=== PATIENT | female | born 1985 | race Caucasian/White ===

== ENCOUNTER → 2021-04-14 16:34 | Outpatient (CLI) | payer BC, SELFPAY ==
[2021-04-14 18:55] LABS: Amphetamine Urine VISTA NEGATIVE (<1000 ng/mL); Barbiturate Urine VISTA NEGATIVE (< 200 ng/mL); Benzodiazepine Urine VISTA NEGATIVE (< 200 ng/mL); Cocaine Urine VISTA NEGATIVE (< 300 ng/mL); Ecstacy Urine VISTA NEGATIVE (< 500 ng/mL); Methadone Urine VISTA NEGATIVE (< 300 ng/mL); PCP Urine VISTA NEGATIVE (< 25 ng/mL); THC Urine VISTA NEGATIVE (< 50 ng/mL); Vista UDS pH Range 6
[2021-04-16 22:07] LABS: Chlamydia By Nucleic Acid AMP Negative (Negative)
[2021-04-17 09:33] LABS: Gonococcus By Nucleic Acid AMP Negative (Negative)
[2021-04-21 16:26] LABS: HPV APTIMA, High Risk Negative (Negative)
== END ==
PROVIDERS: Referring Provider Obstetrics & Gynecology; Visit Provider Obstetrics & Gynecology
DX: Z34.90 Encounter for supervision of normal pregnancy, unspecified, unspecified trimester (principal)
CPT/HCPCS: 80307; 87086; 87088; 87186; 87491; 87591; 87624; 88175; G0145

== ENCOUNTER → 2021-04-30 11:01 | Outpatient (CLI) | payer BC, SELFPAY ==
[2021-04-30 11:27] LABS: Absolute Lymphocyte Count 1.52 X10^3/uL (0.83-4.51); Absolute Neutrophil Count 7.7 X10^3/uL (2.0-7.7); Basophil# 0.05 X10^3/uL; Basophil% 0.5 % (0-1); Eosinophils% 3.9 % (0-5); Hemoglobin 12.7 g/dL (12.0-15.0); Lymphocyte # 1.52 X10^3/ul (0.83-4.51); Lymphocyte % 14.9 % (19-41); Mean Corp Hgb Conc 33.4 g/dL (32-36); Mean Corpuscular Volume 89.8 fL (81-99); Mean Platelet Vol. 9.1 fl (6.2-12.0); Monocyte# 0.48 X10^3/uL; Monocyte% 4.7 % (0-10); NRBC Flagged by Analyzer 0 % (0-5); Neutrophil # 7.71 X10^3/uL (2.7-7.7); Neutrophil % 75.7 % (47-70); Platelet Count 271 K/mm3 (150-450); RBC Distribution Width CV 14.2 % (11.6-14.6); RBC Distribution Width SD 46.5 fl (35.1-43.9); Red Blood Count 4.23 M/mm3 (4.2-5.4); White Blood Count 10.2 K/mm3 (4.4-11.0)
[2021-04-30 12:24] LABS: NATERA MAILED SPECIMEN
[2021-04-30 12:45] LABS: HIV - WCH Non-Reactive (Nonreactive); Hepatitis B Surface Antigen Non-Reactive (Nonreactive); Hepatitis C Antibody Non-Reactive (Nonreactive); Rubella IgG Reactive (Nonreactive); Syphilis Antibodies Non-reactive
== END ==
PROVIDERS: Referring Provider Obstetrics & Gynecology; Visit Provider Obstetrics & Gynecology
DX: Z34.90 Encounter for supervision of normal pregnancy, unspecified, unspecified trimester (principal)
CPT/HCPCS: 36415; 85025; 86703; 86762; 86780; 86803; 86850; 86900; 86901; 87340

== ENCOUNTER → 2021-05-13 12:30 | Outpatient (CLI) | payer BC, SELFPAY | PROVIDERS: Visit Provider Obstetrics & Gynecology | DX: Z34.91 Encounter for supervision of normal pregnancy, unspecified, first trimester (principal) | CPT/HCPCS: 87086; 87088 ==

== ENCOUNTER → 2021-07-08 | Outpatient (CLI) | payer BC, SELFPAY | END | disposition home or self-care (01) | LOC: LABSPEC 08-13 11:29 | PROVIDERS: Visit Provider Obstetrics & Gynecology | DX: O99.891 Other specified diseases and conditions complicating pregnancy (principal); R82.71 Bacteriuria | CPT/HCPCS: 87086; 87088 ==

== ENCOUNTER 2021-08-25 08:22 | Outpatient (CLI) | payer BC, SELFPAY ==
[2021-08-25 08:51] LABS: Absolute Lymphocyte Count 1.61 X10^3/uL (0.83-4.51); Absolute Neutrophil Count 9.4 X10^3/uL (2.0-7.7); Basophil# 0.04 X10^3/uL; Basophil% 0.3 % (0-1); Eosinophil# 0.43 X10^3/uL; Eosinophils% 3.5 % (0-5); Hematocrit 36.8 % (37-47); Hemoglobin 12.5 g/dL (12.0-15.0); Lymphocyte # 1.61 X10^3/ul (0.83-4.51); Lymphocyte % 13.2 % (19-41); Mean Corpuscular Hgb 32.9 pg (27.0-32.0); Mean Corpuscular Volume 96.8 fL (81-99); Monocyte# 0.68 X10^3/uL; Monocyte% 5.6 % (0-10); NRBC Flagged by Analyzer 0 % (0-5); Neutrophil # 9.43 X10^3/uL (2.7-7.7); Platelet Count 230 K/mm3 (150-450); RBC Distribution Width CV 12.7 % (11.6-14.6); RBC Distribution Width SD 45.1 fl (35.1-43.9); White Blood Count 12.2 K/mm3 (4.4-11.0)
[2021-08-25 09:13] LABS: Glucose Challenge Gest 1H 50g 102 mg/dL (70-140)
== END 2021-08-25 23:59 | disposition home or self-care (01) ==
LOC: PAVLAB 08:23
PROVIDERS: Referring Provider Obstetrics & Gynecology; Visit Provider Obstetrics & Gynecology
DX: Z34.02 Encounter for supervision of normal first pregnancy, second trimester (principal)
CPT/HCPCS: 36415; 82950; 85025

== ENCOUNTER → 2021-09-28 | Outpatient (CLI) | payer BC, SELFPAY ==
--- NOTE | 2021-09-28 09:04 | US_ITS ---
STUDY: SECOND AND THIRD TRIMESTER OBSTETRICAL ULTRASOUND - LIMITED REASON FOR EXAM: Female, 36 years old growth @ 32 and 36 weeks -- standing order LMP: 02/14/2021. PRIOR ULTRASOUND: None. TECHNIQUE: Transabdominal TECHNICAL QUALITY: Adequate. FINDINGS: There is a single intrauterine fetus. The fetus is in a cephalic presentation. There is demonstrated cardiac activity with a heart rate of 155 bpm. There is a normal amniotic fluid volume. The largest amniotic fluid pocket measures 4.95 cm. The amniotic fluid index (MARJORIE) is 14.41 cm. The placenta is anterior in location and is not low lying. There are Grade 0 placental changes. The cervix measures 3.4 cm in length. BIOMETRY: BPD: 7.89 cm: 31 weeks, 4 days HC: 29.76 cm: 32 weeks, 6 days AC: 27.69 cm: 31 weeks, 5 days FL: 5.97 cm: 31 weeks, 0 days Age by LMP: 32 weeks, 2 days. BRITANY by LMP: 11/22/2019. age by current US: 31 weeks, 6 days. BRITANY by current US: 11/24/2021. Estimated weight: 1804 grams, +/- 271 grams, 22 percentile. US/OB Limited With Biometrics IMPRESSION: Single live uterine gestation with mean gestational age of 31 weeks and 6 days. Electronically Signed: Mane Soriano MD at 13:59 EDT ,
== END | disposition home or self-care (01) ==
LOC: OPUS 09:03
PROVIDERS: Referring Provider Nurse Practitioner Women's Health; Visit Provider Nurse Practitioner Women's Health
DX: O98.512 Other viral diseases complicating pregnancy, second trimester (principal); U07.1 COVID-19; Z3A.00 Weeks of gestation of pregnancy not specified
CPT/HCPCS: 76816

== ENCOUNTER → 2021-10-27 | Outpatient (CLI) | payer BC, SELFPAY ==
--- NOTE | 2021-10-27 08:15 | US_ITS ---
HISTORY: growth. TECHNIQUE: Transabdominal pelvic ultrasound was performed. 70 images. COMPARISON: 09/28/2021. FINDINGS: INTRAUTERINE GESTATION(s): Single. PRESENTATION: Cephalic. HEART MOTION: 137 bpm. PLACENTA: Anterior, grade 2. No placenta previa. CERVIX: 3.3 cm in length and closed. AMNIOTIC FLUID INDEX (MARJORIE): 13.1 cm. biometry- HEAD CIRCUMFERENCE: 32.9 cm, corresponding to 37 weeks 2 days. BIPARIETAL DIAMETER: 8.6 cm, corresponding to 34 weeks 3 days. ABDOMINAL CIRCUMFERENCE: 32 cm, corresponding to 35 weeks 6 days. FEMORAL LENGTH: 6.9 cm, corresponding to 35 weeks 1 day. ESTIMATED GESTATIONAL AGE: 35 weeks 4 days. ESTIMATED DUE DATE (BRITANY): 11/27/2021. ESTIMATED WEIGHT: 2725 g corresponding to 32nd percentile. US/OB Limited With Biometrics IMPRESSION: Single living intrauterine with an estimated gestational age of 35 weeks 4 days. Electronically Signed: Kaela Chaparro MD at 13:58 EDT ,
== END | disposition home or self-care (01) ==
LOC: OPUS 07:49
PROVIDERS: Visit Provider Nurse Practitioner Women's Health
DX: O98.512 Other viral diseases complicating pregnancy, second trimester (principal); U07.1 COVID-19; Z3A.00 Weeks of gestation of pregnancy not specified
CPT/HCPCS: 76816

== ENCOUNTER → 2021-10-28 | Outpatient (CLI) | payer BC, SELFPAY | END | disposition home or self-care (01) | PROVIDERS: Visit Provider Obstetrics & Gynecology | DX: Z34.02 Encounter for supervision of normal first pregnancy, second trimester (principal) | CPT/HCPCS: 87081 ==

== ENCOUNTER 2021-11-26 22:00 | Inpatient (IN) | payer BC, SELFPAY ==
--- NOTE | 2021-11-26 16:01 | HP.PCM.OB_ITS ---
HPI - General HPI Narrative BARRIE WEBSTER, is a 36 @ 41 weeks gestation who presents to L&D for post dates IOL. Maternal Data Information BRITANY Calculator Estimated Delivery Date Method Current WG Current Estimate 11/21/21 LMP (Certain) 40w 5d Other Estimates 11/21/21 Ultrasound #1 40w 5d PFSH PFSH Medical History Low-lying placenta in second trimester Home Medications multivitamin no.47-iron fum 27 mg-folate no.1 1 mg-dha 300 mg capsule (PNV-DHA) cap PO 03/30/21 [History Last Taken Unknown] ondansetron 4 mg disintegrating tablet 4 mg PO Q8H PRN nausea and vomiting 14 days #30 tabs 04/14/21 [Rx Last Taken Unknown] Allergy/AdvReac Type Severity Reaction Status Date / Time No Known Allergies Allergy Verified 11/25/21 08:21 Family History Other Cancer Diabetes Heart disease Hypertension Social History household members: spouse housing: house current occupational status: unemployed pets and animals: Yes Smoking Status: Never smoker second hand exposure: No alcohol intake: never substance use type: does not use seatbelt use: always do you feel safe at home: Yes additional social history: - Richi History 1 Elective abortions 0 Hx Para 0 Spontaneous abortions Hx # Term Pregnancies Ectopic pregnancies Hx # Pregnancies Multiple births # of living children 0 Visit Details Expected Delivery Route/Plan Labor Preferences- CB/BF classes: encouraged labor support person: Richi labor intervention preferences: pain management options preferred: limited intervention if possible cut cord/dad catch: yes!! : yes PP control planned: discussed discussed possible routes of delivery and associated risks: [] special requests: [] Plans Covid status: + second trim Flu vaccine: no Tdap vaccine: [] Rhogam: NA LARC form signed: yes Problem list reviewed and updated with the most current plan of care details and appropriate orders placed. Relevant counseling for the gestational age provided. Continue routine care and follow up unless otherwise noted in visit notes/problem list details OB Flowsheet Initial Weight: Not Recorded Date -?-?-?-?-?-?-?-?-?-?-?-?- EGA Weight BP Urine Prot -?-?-?-?-?-?-?-?-?-?-?-?- Glucose FHR FuHt Pres Dilation -?-?-?-?-?-?-?-?-?-?-?-?- Effaced St Visit Note 05/13/21 -?-?-?-?-?-?-?-?-?-?-?-?- 12w 4d 133 lb 112/80 -?-?-?-?-?-?-?-?-?-?-?-?- -?-?-?-?-?-?-?-?-?-?-?-?- JV- bedside us t yuli was normal. nausea improved. gender a surprise until yumi! normal genetics. 06/10/21 -?-?-?-?-?-?-?-?-?-?-?-?- 16w 4d 136 lb 120/74 Negative -?-?-?-?-?-?-?-?-?-?-?-?- Negative 156 -?-?-?-?-?-?-?-?-?-?-?-?- -No Vb, LOF. N ausea resolved. Anatomy US ordered. 07/08/21 -?-?-?-?-?-?-?-?-?-?-?-?- 20w 4d 140 lb 8 oz 110/70 Nega tive -?-?-?-?-?-?-?-?-?-?-?-?- Negative 145 -?-?-?-?-?-?-?-?-?-?-?-?- JV- pt was told of low lying vs marginal previa. pelvic rest encouraged. pt will have rpt scan in 2 weeks for follow up ultrasound. 08/05/21 -?-?-?-?-?-?-?-?-?-?-?-?- 24w 4d 152 lb 112/72 Negative -?-?-?-?-?-?-?-?-?-?-?-?- Negative 135 -?-?-?-?-?-?-?-?-?-?-?-?- JV- no lof, vagi nal bleeding, or dec fm. glucola given. Rpt scan for low lying placenta on 08/31/21 09/02/21 -?-?-?-?-?-?-?-?-?-?-?-?- 28w 4d 157 lb 2 oz 108/60 Nega tive -?-?-?-?-?-?-?-?-?-?-?-?- Negative 153 27 -?-?-?-?-?-?-?-?-?-?-?-?- MH-NO VB, LOF. G ood FM. Nl 28 wk labs, [facility] 09/16/21 -?-?-?-?-?-?-?-?-?-?-?-?- 30w 4d 162 lb 2 oz 100/72 Nega tive -?-?-?-?-?-?-?-?-?-?-?-?- Negative 130 30 -?-?-?-?-?-?-?-?-?-?-?-?- JV-no lof, vagin al bleeding. or dec fm. 09/30/21 -?-?-?-?-?-?-?-?-?-?-?-?- 32w 4d 163 lb 4 oz 110/80 Nega tive -?-?-?-?-?-?-?-?-?-?-?-?- Negative 145 32 -?-?-?-?-?-?-?-?-?-?-?-?- JV- no lof, vagi nal bleeding, or dec fm. 10/14/21 -?-?-?-?-?-?-?-?-?-?-?-?- 34w 4d 165 lb 6 oz 102/80 Nega tive -?-?-?-?-?-?-?-?-?-?-?-?- Negative 147 34 -?-?-?-?-?-?-?-?-?-?-?-?- JV- no complaint s today. growth scan was normal. (22nd%) mediteck down during visit 10/28/21 -?-?-?-?-?-?-?-?-?-?-?-?- 36w 4d 166 lb 104/82 Negative -?-?-?-?-?-?-?-?-?-?-?-?- Negative 145 0 -?-?-?-?-?-?-?-?-?-?-?-?- JV- GBS today. n o lof, vaginal bleeding or dec fm. pt uable to meet Dr. zuñiga at this time because she can only come on wednesdays. she is ok with it as is Dr. zuñiga. 11/04/21 -?-?-?-?-?-?-?-?-?-?-?-?- 37w 4d 172 lb 2 oz 120/82 Nega tive -?-?-?-?-?-?-?-?-?-?-?-?- Negative 155 36 1 -?-?-?-?-?-?-?-?-?-?-?-?- 0 -3 JV- no lof , vaginal bleeding, or dec fm. gbs neg 11/11/21 -?-?-?-?-?-?-?-?-?-?-?-?- 38w 4d 168 lb 4 oz 110/88 Nega tive -?-?-?-?-?-?-?-?-?-?-?-?- Negative 150 37 1 -?-?-?-?-?-?-?-?-?-?-?-?- 0 -3 JV- labor precautions discussed. no complaints. will check MARJORIE next visit if still measuring behind. 11/18/21 -?-?-?-?-?-?-?-?-?-?-?-?- 39w 4d 170 lb 6 oz 124/78 Nega tive -?-?-?-?-?-?-?-?-?-?-?-?- Negative 127 2 -?-?-?-?-?-?-?-?-?-?-?-?- 40 -2 JV- labor precautions discussed. plan for 41 week IOL 11/25/21 -?-?-?-?-?-?-?-?-?-?-?-?- 40w 4d 173 lb 4 oz 102/80 Nega tive -?-?-?-?-?-?-?-?-?-?-?-?- Negative 145 2 -?-?-?-?-?-?-?-?-?-?-?-?- 80 -2 JV- no lof , vaginal bleeding, or dec fm. IOL set up for tomorrow night. ROS Constitutional Constitutional: Denies change in weight, fatigue, fever(s), headache(s), poor appetite or weakness Eyes Eyes: Denies blurry vision, change in vision, seeing flashes or spots in vision ENT HEENT: Denies dizziness, headache(s), loss taste/smell or sore throat Cardiovascular Cardiovascular: Denies chest pain, dizziness, dyspnea, irregular heart rhythm, leg edema, palpitations, rapid heart rate or vomiting Respiratory/Chest Respiratory/Chest: Denies chest tightness, cough, dyspnea or breast pain Gastrointestinal Gastrointestinal: Denies abdominal pain, anorexia, constipation, cramping, diarrhea, hemorrhoids, vomiting or weight changes Genitourinary Genitourinary: Denies dysuria, flank pain, genital lesions, genital pain, urinary frequency or urinary urgency Musculoskeletal Musculoskeletal: Denies back pain, difficulty walking, joint pain, limited range of motion, muscle cramps or numbness Integumentary Integumentary: Denies lesions or unusual bruising Neurologic Neurologic: Denies abnormal movements, abnormal speech, dizziness, numbness, seizure-like activity or syncope Psychiatric Psychiatric: Denies anxiety, behavioral changes, change in appetite, change in libido, cognitive impairment, confusion, depression, difficulty concentrating, hallucinations or suicidal thoughts Endocrine Endocrinology: Denies excessive sweating, polydipsia or polyuria Hematologic/Lymphatic Hematologic/Lymphatic: Denies easy bleeding, easy bruising or lymphadenopathy Allergic/Immunologic Allergic/Immunologic: Denies itchy eyes, lip swelling, seasonal rhinorrhea, rhinitis, throat swelling, tongue swelling, eczemia, wheezing or asthma Physical Exam Const alert, oriented x3, no apparent distress and healthy appearing General Appearance: cooperative; Negative for anxious HEENT normocephalic Face and Sinus: normal facial exam Eyes EOMs intact bilaterally and no scleral icterus General Eye: normal appearance of both eyes Neck full ROM and supple Lymph Lymphatic: no lymphadenopathy noted Chest Chest: abnormal inspection of the chest Resp normal respiratory effort Effort and Inspection: able to speak in complete sentences Cardio regular rate GI soft to palpation and non-tender Inspection: gravid Palpation: soft; Negative for tender external exam normal Amniotic Fluid: ROM+plus Back/Spine no CVA tenderness Extremity normal to inspection, full ROM and no clubbing, cyanosis or edema General Extremity: Negative for calf tenderness or edema Skin Lesions: no lesions Rashes: no rashes Psych mental status grossly normal Labs Labs Labs: Blood Type O POSITIVE Antibody Screen NEGATIVE Hct 36.8 % (37-47) L Hgb 12.5 g/dL (12.0-15.0) Obstetrics US Syphilis Total Ab Non-reactive Rubella IgG Antibody Reactive (Nonreactive) Hep Bs Antigen Non-Reactive (Nonreactive) Chlamydia DNA (BEATRIS) Negative (Negative) Neisseria gonorrhoeae DNA (BEATRIS) Negative (Negative) HIV 1&2 Antibody Non-Reactive (Nonreactive) Glucose 1 Hr 50 gm 102 mg/dL (70-140) Assessment & Plan (1) Low-lying placenta in second trimester: COMMENT: resolved (2) COVID-19 affecting in second trimester: COMMENT: Start aspirin and growth US, growth low nl 22% (3) Antepartum asymptomatic bacteriuria: COMMENT: Neg on 07/08/21 (4) Supervision of normal : QUALIFIERS: Normal : normal first Trimester: second trimester Qualified Code(s): Z34.02 - Encounter for supervision of normal first , second trimester COMMENT: [id number] BRITANY: 11/21/21 Girl Spouse: Richi (5) : QUALIFIERS: Weeks of gestation: 40 weeks Qualified Code(s): Z3A.40 - 40 weeks gestation of COMMENT: GBS Negative; anatomy nl repeat 2 wks for addtnl views, genetic- low risk and carrier- neg PLAN: Plan Patient presents IOL, plan management for with cytotec tonight and pitocin tomorrow. . Pain management: plans epidural. GBS negative. Management of any complications: none I have reviewed the [facility] and made any clinically relevant updates.
[2021-11-26 22:21] VITALS: TEMP 37
[2021-11-26] MEDS: Lactated Ringers 1,000 ML 50 ML IV (22:25)
[2021-11-26 22:30] VITALS: BMI 28.8
[2021-11-26 22:40] LABS: Absolute Lymphocyte Count 2.04 X10^3/uL (0.83-4.51); Absolute Neutrophil Count 10.9 X10^3/uL (2.0-7.7); Basophil# 0.04 X10^3/uL; Basophil% 0.3 % (0-1); Eosinophil# 0.46 X10^3/uL; Eosinophils% 3.2 % (0-5); Hematocrit 36.5 % (37-47); Lymphocyte # 2.04 X10^3/ul (0.83-4.51); Lymphocyte % 14.2 % (19-41); Mean Corp Hgb Conc 32.9 g/dL (32-36); Mean Corpuscular Hgb 31.1 pg (27.0-32.0); Mean Corpuscular Volume 94.6 fL (81-99); Mean Platelet Vol. 9.8 fl (6.2-12.0); Monocyte# 0.93 X10^3/uL; Monocyte% 6.5 % (0-10); NRBC Flagged by Analyzer 0 % (0-5); Neutrophil # 10.87 X10^3/uL (2.7-7.7); Neutrophil % 75.3 % (47-70); Platelet Count 266 K/mm3 (150-450); RBC Distribution Width CV 14.1 % (11.6-14.6); RBC Distribution Width SD 48.5 fl (35.1-43.9); Red Blood Count 3.86 M/mm3 (4.2-5.4); White Blood Count 14.4 K/mm3 (4.4-11.0)
[2021-11-26 22:58] VITALS: PULSE 81; TEMP 37.1; O2SAT 98
[2021-11-26 22:59] VITALS: PULSE 82; O2SAT 98
[2021-11-26 23:02] VITALS: BP 110/62; PULSE 75
[2021-11-26] MEDS: miSOPROStol 25 MCG TABLET PO (23:46)
[2021-11-27] VITALS (46 sets, daily range): BP systolic 82–125; BP diastolic 51–80; PULSE 64–116; RESP 14; TEMP 36.2–37.7; O2SAT 98–100
[2021-11-27] MEDS: miSOPROStol 25 MCG TABLET PO (03:49)
[2021-11-27] MEDS: Oxytocin 30 units/NS 500 ml 30 UNITS/500 ML IV.SOLN IV (07:52)
[2021-11-27] MEDS: 0.9% Normal Saline Single 100 ML IV.SOLN. INTRA-UTER (08:19)
--- NOTE | 2021-11-27 08:42 | PN_ITS ---
Progress Note pt is sitting up in bed. She states that contractions are no bad and she consents to a loera bulb placement current tracing: FHT: Moderate variability reactive no decelerations category I tracing [place]: irregular Contractions cx: 2/80/-3 - loera cath inserted into the cervix and inflated with 50cc NS reviewed tracing abnormalities since last note: no changes A/P: 40 weeks 6 day IOL -continue pitocin with loera. arom prn.
[2021-11-27] MEDS: LACTATED RINGERS 500 ML 999 ML IV (12:26)
[2021-11-27] MEDS: Lactated Ringers 1,000 ML 200 ML IV ×2 (13:18→19:25)
[2021-11-27] MEDS: fentaNYL-bupivacaine (epidural) 100 ML BAG EPIDURAL (13:21)
[2021-11-27] MEDS: Oxytocin 30 units/NS 500 ml 30 UNITS/500 ML IV.SOLN 334 UNITS IV (16:22)
--- NOTE | 2021-11-27 17:17 | EX.PCM.OBRPT ---
Assessment & Plan (1) : QUALIFIERS: Weeks of gestation: 40 weeks Qualified Code(s): Z3A.40 - 40 weeks gestation of COMMENT: GBS Negative; anatomy nl repeat 2 wks for addtnl views, genetic- low risk and carrier- neg (2) Supervision of normal : QUALIFIERS: Normal : normal first Trimester: second trimester Qualified Code(s): Z34.02 - Encounter for supervision of normal first , second trimester COMMENT: [id number] BRITANY: 11/21/21 Girl Spouse: Richi (3) Antepartum asymptomatic bacteriuria: COMMENT: Neg on 07/08/21 (4) COVID-19 affecting in second trimester: COMMENT: Start aspirin and growth US, growth low nl 22% (5) Vaginal delivery: COMMENT: SM IOL 41 girl Lisa Maternal Data Information BRITANY Calculator Estimated Delivery Date Method Current WG Current Estimate 11/21/21 LMP (Certain) 40w 6d Other Estimates 11/21/21 Ultrasound #1 40w 6d Vaginal Delivery Operative Information Date of Procedure: 11/27/21 Pre-Operative Diagnosis: IOL postdates Post-Operative Diagnosis: same Surgery / Procedure Performed: Spontaneous Vaginal Delivery Type of Anesthesia: Epidural Special Medications: none Estimated Blood Loss: 100 Fluids Replaced: crystalloid Findings Description of Procedure: Patient began pushing and delivered the head in the SULEIMAN presentation. The head was delivered atraumatically . The anterior and posterior shoulders delivered without complication followed by the rest of the and the infant was placed on the maternal abdomen. Delayed cord clamping was employed for approximately 60 seconds. Cord was clamped and cut and gentle traction was applied to the cord and the placenta delivered spontaneously immediately following it was noted to be intact with three-vessel cord. The perineum and vagina were inspected and noted to have no laceration. EBL was 100 cc. Patient and infant tolerated delivery well. Presentation: SULEIMAN Amniotic Membrane Rupture Type: Artificial Amniotic Fluid Description: Clear Placental Delivery Description: Spontaneous Placenta Disposition: [facility] Cord Vessel Description: 3 Vessels Cord Entanglement: None Infant A Gender: Female Delayed Cord Clamping: Yes Post Vaginal Delivery Medications Given After Delivery: IV Pitocin Episiotomy Description: None Laceration: None Complication Complications: None Procedures Urinary/Genital [id number]: [id number] Vaginal Delivery [facility]
--- NOTE | 2021-11-27 17:18 | DCINST_ITS ---
Discharge Instructions Follow Up Care Test Results: Test results from this visit will be discussed in further detail at your follow- up appointment, if applicable. Discharge Plan Admission Admit Date/Time: 11/26/21 22:00 Attending Provider: Calista Rice Primary Care Provider: Care Physician,Marsha Primary Discharge Orders/Prescriptions Prescriptions: No Action PNV-DHA 27 mg iron-1 mg -300 mg capsule 1 cap PO DAILY Referrals / Follow Up: Care Physician,No Primary [Primary Care Provider] -
[2021-11-27] MEDS: Carboprost Tromethamine 250 MCG/ML Ampul IM ×2 (17:28→17:49)
[2021-11-27] MEDS: miSOPROStol 200 MCG Tablet 1000 MCG RC (17:29)
[2021-11-27] MEDS: Methylergonovine 0.2 MG/ML Ampul IM (17:31)
--- NOTE | 2021-11-27 17:34 | PCM.PN.BLA ---
Progress Note patient seen due to passing large clots- evacuated vagina and lower uterine segment of 1200cc, given methergine hemabate cytotec pitocin, ordered TXA. massage on uterus and now doing well. continue to monitor, check cbc in am. reviewed plan with nursing.
--- NOTE | 2021-11-27 17:59 | NURSING ---
Late entry due to pt care 1713- In for fundal check, another clot expressed with fundal expression, called RANDAL Herrera for IM Methergine 1718-Methergine given IM, Carl called from room and reports she is on the unit. called to room to evaluate bleeding. See Note. Verbal orders received for additional PPH medications 1728-Hemabate IM given 1729-Cytotec per rectal given by Carl then out of room and remains on unit 1735- TXA given IV, and straight cath for 100cc by Marcelo Mueller RN 1738- SM back in room, additional internal exam done, small clot manually expressed. Total blood loss 1300cc including the 100cc from delivery. Patient tolerated internal exams well. Currently feeling nauseous. Asymptomatic from blood loss.
[2021-11-27] MEDS: Loperamide 2 MG Capsule PO (19:38)
[2021-11-27] MEDS: Acetaminophen 500 MG Tablet 1000 MG PO (22:20)
[2021-11-28 00:40] VITALS: BP 86/48; PULSE 96; RESP 16; TEMP 37.1
[2021-11-28 02:14] LABS: Absolute Neutrophil Count 17.2 X10^3/uL (2.0-7.7); Basophil# 0.05 X10^3/uL; Basophil% 0.2 % (0-1); Eosinophil# 0.04 X10^3/uL; Eosinophils% 0.2 % (0-5); Hematocrit 27.6 % (37-47); Lymphocyte % 8.3 % (19-41); Mean Corp Hgb Conc 32.6 g/dL (32-36); Mean Corpuscular Hgb 30.7 pg (27.0-32.0); Mean Corpuscular Volume 94.2 fL (81-99); Mean Platelet Vol. 9.5 fl (6.2-12.0); Monocyte# 1.27 X10^3/uL; Monocyte% 6.2 % (0-10); NRBC Flagged by Analyzer 0 % (0-5); Neutrophil # 17.19 X10^3/uL (2.7-7.7); Neutrophil % 84.6 % (47-70); Platelet Count 223 K/mm3 (150-450); RBC Distribution Width SD 47.6 fl (35.1-43.9); Red Blood Count 2.93 M/mm3 (4.2-5.4); White Blood Count 20.4 K/mm3 (4.4-11.0)
[2021-11-28 04:30] VITALS: BP 81/47; BP 84/51; PULSE 84; RESP 16; TEMP 36.7; O2SAT 98
[2021-11-28] MEDS: Lactated Ringers 1,000 ML 999 ML IV (05:57)
[2021-11-28] MEDS: 0.9% Saline Lock 10 ML Syringe IV ×2 (05:58→17:09)
--- NOTE | 2021-11-28 08:04 | PN.OBGYN_ITS ---
Subjective Subjective Patient doing well without complaints. Tolerating PO. Ambulating and voiding without difficulty. feeding well. Denies chest pain, shortness of breath, calf pain/swelling, fevers, chills, lightheadedness. Objective Data Objective Data Vital Signs: Vital Signs Temp Pulse Resp BP Pulse Ox O2 Del Method 98.0 F 84 16 81/47 L 98 Room Air 11/28/21 04:30 11/28/21 04:30 11/28/21 04:30 11/28/21 04:30 11/28/21 04:30 11/28/21 04:30 Oxygen Delivery Method Room Air Weight: 173 lb Body Mass Index (BMI) 28.8 Intake & Output: Intake and Output for Last 24 Hours 11/26/21 11/27/21 11/28/21 23:59 23:59 23:59 Intake Total 2496.83 / 2496.83 1999 Output Total 500 / 500 Balance / 1999 Lab / Micro Data Result Diagrams: 11/28/21 02:08 Labs: Laboratory Results - last 24 hr 11/28/21 02:08: WBC 20.4 H, RBC 2.93 L, Hgb 9.0 L, Hct 27.6 L, MCV 94.2, MCH 30.7, MCHC 32.6, RDW Std Deviation 47.6 H, RDW Coeff of Loi 14.0, Plt Count 223, MPV 9.5, Immature Gran % (Auto) 0.500, Neut % (Auto) 84.6 H, Lymph % (Auto) 8.3 L, Alexander % (Auto) 6.2, Eos % (Auto) 0.2, Baso % (Auto) 0.2, Absolute Neuts (auto) 17.2 H, Absolute Lymphs (auto) 1.70, Nucleated RBC % 0 Micro: Microbiology 11/26/21 22:20 Nasal Secretion SARS-CoV-2 Antigen (Rapid) - Final ROS Constitutional Constitutional: Reports systems reviewed and no addt'l complaints, except as documented Cardiovascular Cardiovascular: Reports systems reviewed and no addt'l complaints, except as documented Respiratory/Chest Respiratory/Chest: Reports systems reviewed and no addt'l complaints, except as documented Gastrointestinal Gastrointestinal: Reports systems reviewed and no addt'l complaints, except as documented Physical Exam Const alert, oriented x3 and no apparent distress HEENT Head and Scalp: atraumatic Resp normal respiratory effort GI soft to palpation and non-tender Bimanual Exam - Vag & Uterus: uterus non-tender Uterus Palpation: uterus fundus firm (below Umbilicus) Assessment & Plan (1) atony of uterus with hemorrhage: COMMENT: 1500 cc blood loss methergine hemabate pitocin cytotec massage TXA. postdelivery Hg 9. stable continue to monitor plan iron as OP (2) Vaginal delivery: COMMENT: SM IOL 41 girl Lisa PLAN: Plan s/p PPD # 1 1. routine post delivery care- except see above comment details 2. breast feeding- support given 3. rh positive 4. rubella immune
[2021-11-28 08:30] VITALS: BP 88/56; PULSE 92; RESP 14; TEMP 36.6
[2021-11-28 12:00] VITALS: BP 91/51; PULSE 97; RESP 16; TEMP 36.7
[2021-11-28] MEDS: Naproxen 500 MG Tablet PO (14:50)
[2021-11-28 17:01] VITALS: BP 95/57; PULSE 86; RESP 16; TEMP 36.1; O2SAT 98
[2021-11-28 19:30] VITALS: BP 100/55; PULSE 96; RESP 18; TEMP 36.6; O2SAT 99
[2021-11-29 02:30] VITALS: BP 87/51; PULSE 91; RESP 16; TEMP 36.5; O2SAT 99
[2021-11-29] MEDS: Naproxen 500 MG Tablet PO (02:32)
[2021-11-29 07:25] VITALS: BP 94/57; PULSE 93; RESP 18; TEMP 36.6; O2SAT 99
--- NOTE | 2021-11-29 08:12 | PCM.PN.OB ---
Subjective Subjective Patient doing well without complaints. Tolerating PO. Ambulating and voiding without difficulty. feeding well. Denies chest pain, shortness of breath, calf pain/swelling, fevers, chills, lightheadedness. Objective Data Objective Data Vital Signs: Vital Signs Temp Pulse Resp BP Pulse Ox O2 Del Method 97.8 F 93 18 94/57 L 99 Room Air 11/29/21 07:25 11/29/21 07:25 11/29/21 07:25 11/29/21 07:25 11/29/21 07:25 11/29/21 07:25 Oxygen Delivery Method Room Air Weight: 173 lb Body Mass Index (BMI) 28.8 Intake & Output: Intake and Output for Last 24 Hours 11/27/21 11/28/21 11/29/21 23:59 23:59 23:59 Intake Total 2496.83 / 2496.83 1999 Output Total 500 / 500 Balance / 1999 Lab / Micro Data Result Diagrams: 11/28/21 02:08 Micro: Microbiology 11/26/21 22:20 Nasal Secretion SARS-CoV-2 Antigen (Rapid) - Final ROS Constitutional Constitutional: Reports systems reviewed and no addt'l complaints, except as documented Cardiovascular Cardiovascular: Reports systems reviewed and no addt'l complaints, except as documented Respiratory/Chest Respiratory/Chest: Reports systems reviewed and no addt'l complaints, except as documented Gastrointestinal Gastrointestinal: Reports systems reviewed and no addt'l complaints, except as documented Physical Exam Const alert, oriented x3 and no apparent distress HEENT Head and Scalp: atraumatic Resp normal respiratory effort GI soft to palpation and non-tender Bimanual Exam - Vag & Uterus: uterus non-tender Uterus Palpation: uterus fundus firm (below Umbilicus) Assessment & Plan (1) Vaginal delivery: COMMENT: SM IOL 41 girl Lisa (2) atony of uterus with hemorrhage: COMMENT: 1500 cc blood loss methergine hemabate pitocin cytotec massage TXA. postdelivery Hg 9. stable continue to monitor plan iron as OP PLAN: Plan s/p PPD # 2 1. routine post delivery care 2. breast feeding- support given 3. rh positive 4. rubella immune
[2021-11-29] MEDS: Senna/Docusate Sodium 1 Tablet PO (09:08)
--- NOTE | 2021-12-03 17:27 | NURSING ---
no answer on follow up phone call and left voicemail
== END 2021-11-29 10:58 | disposition home or self-care (01) | DRG 806 ==
PROVIDERS: Obstetrics & Gynecology; Admitting Provider Obstetrics & Gynecology; Visit Provider Obstetrics & Gynecology
DX: O48.0 Post-term pregnancy (principal); Z37.0 Single live birth; O72.1 Other immediate postpartum hemorrhage; Z3A.41 41 weeks gestation of pregnancy; Z86.16 Personal history of COVID-19
CPT/HCPCS: 59025; 59050; 85025; 86850; 86900; 86901; 87426; 99218; J7120; A4216; G0378

== ENCOUNTER → 2024-10-19 | Outpatient (CLI) | payer OTHER, SELFPAY ==
[2024-10-23 21:07] LABS: Chlamydia By Nucleic Acid AMP Negative (Negative); Gonococcus By Nucleic Acid AMP Negative (Negative)
== END | disposition home or self-care (01) ==
LOC: LABSPEC 09:34
PROVIDERS: Referring Provider Advanced Practice Midwife; Visit Provider Advanced Practice Midwife
DX: Z34.90 Encounter for supervision of normal pregnancy, unspecified, unspecified trimester (principal)
CPT/HCPCS: 87086; 87088; 87491; 87591

== ENCOUNTER → 2024-10-26 | Outpatient (CLI) | payer OTHER, SELFPAY ==
[2024-10-26 09:50] LABS: Absolute Lymphocyte Count 1.45 X10^3/uL (0.83-4.51); Absolute Neutrophil Count 5.1 X10^3/uL (2.0-7.7); Basophil# 0.05 X10^3/uL; Basophil% 0.7 % (0-1); Eosinophil# 0.26 X10^3/uL; Eosinophils% 3.6 % (0-5); Hematocrit 40.8 % (37-47); Hemoglobin 13.4 g/dL (12.0-15.0); Lymphocyte # 1.45 X10^3/ul (0.83-4.51); Lymphocyte % 20.1 % (19-41); Mean Corp Hgb Conc 32.8 g/dL (32-36); Mean Corpuscular Hgb 29.3 pg (27.0-32.0); Mean Corpuscular Volume 89.3 fL (81-99); Mean Platelet Vol. 9.3 fl (6.2-12.0); Monocyte% 5.5 % (0-10); NRBC Flagged by Analyzer 0 % (0-5); Neutrophil # 5.06 X10^3/uL (2.7-7.7); Platelet Count 274 K/mm3 (150-450); RBC Distribution Width CV 14.3 % (11.6-14.6); RBC Distribution Width SD 46.5 fl (35.1-43.9); Red Blood Count 4.57 M/mm3 (4.2-5.4); White Blood Count 7.2 K/mm3 (4.4-11.0)
[2024-10-26 10:26] LABS: HIV Nonreactive (Nonreactive); Hepatitis B Surface Antigen Nonreactive (Nonreactive); Hepatitis C Antibody Nonreactive (Nonreactive); Rubella IgG REAC (Nonreactive); Syphilis Antibodies Nonreactive (Nonreactive)
== END | disposition home or self-care (01) ==
PROVIDERS: Advanced Practice Midwife; Referring Provider Obstetrics & Gynecology; Visit Provider Obstetrics & Gynecology
DX: Z34.81 Encounter for supervision of other normal pregnancy, first trimester (principal)
CPT/HCPCS: 36415; 85025; 86703; 86762; 86780; 86803; 86850; 86900; 86901; 87340

== ENCOUNTER → 2025-02-12 | Outpatient (CLI) | payer BC, SELFPAY ==
[2025-02-12 09:27] LABS: Hematocrit 35.2 % (37-47); Hemoglobin 11.7 g/dL (12.0-15.0); Immature Granulocytes Count 0.050 X10^3/uL (0.0-0.0); Mean Corp Hgb Conc 33.2 g/dL (32-36); Mean Corpuscular Volume 98.6 fL (81-99); Mean Platelet Vol. 9.1 fl (6.2-12.0); NRBC Flagged by Analyzer 0 % (0-5); Platelet Count 260 K/mm3 (150-450); RBC Distribution Width CV 13.2 % (11.6-14.6); RBC Distribution Width SD 47.8 fl (35.1-43.9); Red Blood Count 3.57 M/mm3 (4.2-5.4); White Blood Count 8.9 K/mm3 (4.4-11.0)
[2025-02-12 10:11] LABS: Glucose Challenge Gest 1H 50g 76 mg/dL (70-140); HIV Nonreactive (Nonreactive); Syphilis Antibodies Nonreactive (Nonreactive)
== END | disposition home or self-care (01) ==
LOC: BWCLAB 08:40
PROVIDERS: Advanced Practice Midwife; Referring Provider Obstetrics & Gynecology; Visit Provider Obstetrics & Gynecology
DX: Z34.82 Encounter for supervision of other normal pregnancy, second trimester (principal); Z13.1 Encounter for screening for diabetes mellitus
CPT/HCPCS: 36415; 82950; 85025; 86703; 86780

== ENCOUNTER → 2025-04-26 | Outpatient (CLI) | payer BC, SELFPAY ==
--- NOTE | 2025-04-26 11:54 | US_ITS ---
PROCEDURE: OB LIMITED WITH BIOMETRICS 04/26/2025 REASON FOR EXAM: ADVANCED MATERNAL AGE TECHNIQUE: Procedure Code: [id number] Modality: US Procedure: OB LIMITED WITH BIOMETRICS COMPARISON: None FINDINGS LMP: August 17, 2024. Number: 1 Position: Vertex Placental Position: Posterior and not low-lying Placental Abnormalities: No evidence of previa. DIMENSIONS: Biparietal Diameter: 8.5 cm: 34 weeks and 3 days: 17 percentile/ Head Circumference: 32.1 cm: 36 weeks and 1 day: 24 percentile/ Abdominal Circumference: 31.3 cm: 35 weeks and 2 days: 37 percentile/ Femur Length: 6.6 cm: 33 weeks and 6 days: 5 percentile/ ESTIMATED WEIGHT: 2524 g plus/-379 g. ESTIMATED WEIGHT PERCENTILE (24+ weeks): 22 ESTIMATED GESTATIONAL AGE: Baseline: 36 weeks and 0 days By Ultrasound: 35 weeks and 2 days ESTIMATED DATE OF DELIVERY: Baseline: May 24, 2025 By Ultrasound: May 29, 2025 BIOPHYSICAL ASSESSMENT: Amniotic Fluid Volume: 4 cm Amniotic Fluid Index: 10.4 cm (8-24 cm normal range) Cardiac Motion: 150 beats per minute (average) Trunk and Limb Motion: Present. MATERNAL ANATOMY: Adnexa: Neither maternal ovary is successfully identified. US/OB Limited With Biometrics IMPRESSION: Single live intrauterine gestation with a mean gestational age of 35 weeks and 2 days. Reading Location: [place] [id number]
--- OUTSIDE RECORDS SUMMARY | 2025-04-26 12:01 | XMS RPT_ITS | CCD ---
Author Organization [facility] Care Team Providers Care Sulky Driver Name Role Phone Unavailable Unavailable Unavailable Marshall, Vane D Unavailable Unavailable Marshall, Vane D Unavailable Unavailable Marshall, Vane D Unavailable Unavailable Marshall, Vane D Unavailable Unavailable Marshall, Vane D Unavailable Unavailable Marshall, Vane D Unavailable Unavailable Marshall, Vane D Unavailable Unavailable Marshall, Vane D Unavailable Unavailable Phong Tipton Unavailable Unavailable Phong Tipton Unavailable Unavailable Ky Manzanares Unavailable Unavaila ble Ky Manzanares Unavailable Unavaila ble Care Physician, No Primary Primary Care Provider Unavailable Care Physician, No Primary Referring Provider Un available Dr. Manasa Sommer Attending Provider [phone] TREY Sheffield NP Attending Provider [phone] Care Physician, No Primary Primary Care Provider Unavailable Care Physician, No Primary Referring Provider Un available Dr. Manasa Sommer Attending Provider [phone] Care Physician, No Primary Primary Care Provider Unavailable Care Physician, No Primary Referring Provider Un available Nettie BUSINESS INTELLIGENCE REPORTING ANALYSTROVERTO-Katherine Max Attending Provider [phone] Care Physician, No Primary Primary Care Provider Unavailable Care Physician, No Primary Referring Provider Un available Dr. Manasa Sommer Attending Provider [phone] Dr. Calista Davis Admit Provider [phone] Dr. Calista Davis Other Provider [phone] Dr. Manasa oSmmer Admit Provider Dr. Manasa Sommer Other Provider Dr. Calista Davis Attending Provider [phone] Care Physician, No Primary Primary Care Provider Unavailable Care Physician, No Primary Referring Provider Un available Nneka Salcido CNM Attending Provider [phone] Nneka Salcido CNM Referring Provider [phone] Dr. Manasa Sommer DO Attending Provider Dr. Manasa Sommer DO Referring Provider Dr. Calista Davis MD Attending Provider NO PRIMARY CARE, MD Primary Care Unavailable CALISTA DAVIS Referring UnavailJERRY Doe Attending Unavailable NO PRIMARY CARE, MD Primary Care Unavailable CALISTA DAVIS Referring UnavailJERRY Doe Attending Unavailable Winter Acosta Attending Provider [phone] Care Physician, No Primary Primary Care Physicia n Unavailable Care Physician, No Primary Referring Provider Un available Dr. Calista Davis MD Attending Physician Dr. Manasa Sommer DO Attending Physician Winter Acosta Attending Physician [phone] Nneka Salcido CNM Attending Physician [phone] Dr. Manasa Sommer DO Referring Provider Care Physician, No Primary Primary Care Physicia n Unavailable Care Physician, No Primary Referring Provider Un available Dr. Calista Davis MD Attending Physician Nneka Salcido Attending Unavailable Care Physician, No Primary Primary Care Unava ilable Care Physician, No Primary Referring Unava ilable Care Physician, No Primary Primary Care Unava ilable Calista Davis Attending Unavailable Care Physician, No Primary Referring Unava ilable Calista Davis Attending Unavailable Care Physician, No Primary Referring Unava ilable Care Physician, No Primary Primary Care Unava ilable Manasa Sommer Attending Unavailabl e Care Physician, No Primary Referring Unava ilable Care Physician, No Primary Primary Care Unava ilable Care Physician, No Primary Primary Care Unava ilable Manasa Sommer Attending Unavailabl e Abrame Manasa Hernandez Referring Unavailabl e Vande Velde, Manasa Referring Unavailabl e Vande Velde, Manasa Attending Unavailabl e Care Physician, No Primary Primary Care Unava ilable Diallo Hernandez, Manasa Attending Unavailabl e Vande Velleatha, Manasa Referring Unavailabl e Care Physician, No Primary Primary Care Unava ilable Nneka Salcido Attending Unavailable Omari, Nneka Referring Unavailable Care Physician, No Primary Primary Care Unava ilable Nneka Salcido Attending Unavailable Care Physician, No Primary Referring Unava ilable Care Physician, No Primary Primary Care Unava ilable Care Physician, No Primary Primary Care Unava ilable Manasa Sommer Attending Unavailabl e Care Physician, No Primary Referring Unava ilable Care Physician, No Primary Primary Care Unava ilable Nettie LAYNE, Winter Attending Unavailable Care Physician, No Primary Referring Unava ilable Nneka Salcido Attending Unavailable Care Physician, No Primary Referring Unava ilable Care Physician, No Primary Primary Care Unava ilable Medications Current Medications Medication Drug Class(es) Dates Sig (Normalized) Sig (Original) Multivit 26-Icey-Yvxpnu 1-Dha (Pnv-Dha) 27 mg iron-1 mg -300 mg capsule (13 sources) Start: 03-30-2021 Multivit 67-Hwqu-Xculph 1-Dha (Pnv-Dha) 27 mg iron-1 mg -300 mg capsule Active CAP PO March 30, 2021 2:45pm Start: 03-30-2021 Start: 03-30-2021 Multivit 47-Ir on-Folate 1-Dha (Pnv-Dha) 27 mg iron-1 mg -300 mg capsule Active 1 NMA PO DAILY March 30, 2021 12:00am Check with primary doctor Start: 03-30-2021 Multivit 47-Ir on-Folate 1-Dha (Pnv-Dha) 27 mg iron-1 mg -300 mg capsule Active 1 NMA PO DAILY March 30, 2021 12:00am Start: 03-30-2021 take 1 capsule by [facility] once daily Multivit 21-Gqnd-Jfnbjr 1-Dha (Pnv-Dha) 27 mg iron-1 mg -300 mg capsule Active 1 CAP PO DAILY March 30, 2021 12:00am Start: 03-30-2021 Multivit 47-Ir on-Folate 1-Dha (Pnv-Dha) 27 mg iron-1 mg -300 mg capsule Active CAP PO March 30, 2021 12:00am ondansetron 4 mg disintegrating oral tablet (4 sources) Serotonin-3 Receptor Antagonist Start: 04-14-2021 take 4 mg by mouth every eight hours Ondansetron Active 4 MG PO Q8H 30 14 April 14, 2021 4:53pm Completed/Discontinued Medications Medication Drug Class(es) Dates Sig (Normalized) Sig (Original) nitrofurantoin, macrocrystals 100 mg oral capsule (13 sources) Nitrofuran Antibacterial Start: 04-17-2021 End: 04-24-2021 take 1 capsule by mouth twice daily at mealtime Nitrofurantoin Macrocrystal 100 mg capsule Discontinued 100 mg PO TWICE A DAY 14 7 0 April 17, 2021 1:00am April 23, 2021 1:00am April 24, 2021 1:01am must administer with a meal/food Problems Active Problems Problem Classification Problem Date Documented Date Episodic/Chronic Hemorrhage during ; abruptio placenta; placenta previa (20 sources) Low lying placenta; Translations: [Low lying placenta NOS or without hemorrhage, second trimester] Episodic Comment on above: resolved Immunizations and screening for infectious disease (1 source) Encounter for immunization; Translations: [Encounter for immunization] Onset: 03-13-2025 Episodic Other complications of ; puerperium affecting management of mother (9 sources) Atonic hemorrhage; Translations: [Other immediate hemorrhage] 10-04-2024 Episodic Comment on above: 1500 cc blood loss m ethergine hemabate pitocin cytotec massage TXA. postdelivery Hg 9. stable continue to monitor plan iron as OP Other complications of ; puerperium affecting management of mother (1 source) Other immediate hemorrhage; Translations: [Other immediate hemorrhage, condition or complication] Episodic Other complications of (13 sources) Disease caused by 2019-nCoV; Translations: [Other viral diseases complicating , second trimester] 11-27-2021 Episodic Comment on above: Start aspirin and gr owth US, growth low nl 22% Other complications of (20 sources) Asymptomatic bacteriuria in - not delivered; Translations: [Antepartum asymptomatic bacteriuria] Episodic Other complications of (20 sources) Other viral diseases complicating , second trimester; Translations: [Other viral diseases in the mother, antepartum condition or complication] Episodic Other complications of (20 sources) Multigravida of advanced maternal age; Translations: [Supervision of elderly multigravida, unspecified trimester] 10-19-2024 Episodic Comment on above: growth at 36 weeks. deliver 39 weeks Other complications of (8 sources) Asymptomatic bacteriuria in ; Translations: [Antepartum asymptomatic bacteriuria] 11-27-2021 Episodic Comment on above: Neg on 07/08/21 Other complications of (2 sources) Supervision of elderly multigravida, second trimester; Translations: [Supervision of elderly multigravida, second trimester] Onset: 04-09-2025 Episodic Other and delivery including normal (20 sources) Normal ; Translations: [Encounter for supervision of normal , unspecified, unspecified trimester] Onset: 10-30-2024 Episodic Comment on above: SM IOL 43 girl L tracy , BRITANY 05/24/25 P C Lisa, Richi [id number] BRITANY: 11/21/21 Girl Spouse: Richi salas NIPT, previou s Carrier Neg. GBS Negative; anatom y nl repeat 2 wks for addtnl views, genetic- low risk and carrier- neg PRR, , BRITANY 05/24 PC Lisa, Richi PRR, , BRITANY 05/24 girl PC Lisa, Richi NIPt low risk, previ ous Carrier Neg. 14 Residual codes; unclassified (20 sources) History of gynecological disorder; Translations: [Personal history of other complications of , childbirth and the puerperium] 10-04-2024 Episodic Comment on above: with hemorrhage Residual codes; unclassified (1 source) Personal history of other complications of , childbirth and the puerperium; Translations: [Personal history of other complications of , childbirth and the puerperium] Onset: 04-09-2025 Episodic Residual codes; unclassified (1 source) 33 weeks gestation of ; Translations: [33 weeks gestation of ] Onset: 04-09-2025 Episodic Residual codes; unclassified (1 source) 29 weeks gestation of ; Translations: [29 weeks gestation of ] Onset: 03-13-2025 Episodic Residual codes; unclassified (1 source) 25 weeks gestation of ; Translations: [25 weeks gestation of ] Onset: 02-12-2025 Episodic Past or Other Problems Problem Classification Problem Date Documented Da te Episodic/Chronic Other complications of (1 source) Supervision of elderly multigravida, unspecified trimester; Translations: [Supervision of elderly multigravida, unspecified trimester] Onset: 11-20-2024 Episodic Residual codes; unclassified (1 source) 13 weeks gestation of ; Translations: [13 weeks gestation of ] Onset: 11-20-2024 Episodic Residual codes; unclassified (1 source) 9 weeks gestation of ; Translations: [9 weeks gestation of ] Onset: 10-19-2024 Episodic Results Test Name Value Interpretation Reference Range Facility Recreational Assistant Office Visit Reporton 04-09-2025 Recreational Assistant Office Visit Report [facility] [address], [address] [place] [address] OFFICE VISIT Date of Service: 04/09/25 MR#: [id number] Acct: [id number] Name: BARRIE WEBSTER Rep #: [id number] : 1985 Provider: BRODIE Alatorre ams Age/Sex: 40/F Location[place] [facility] [place] [facility] [place] Status: Signed Intake Vital Signs 01/16/25 08:47 03/27/25 09:27 04/09/25 11:45 04/09/25 11:47 Height 5 ft 5 in 5 ft 5 in 5 ft 5 in 5 ft 5 in Weight: 156 lb 5 oz BMI 25.9 BP 95/62 Intake Visit Reasons: 34 wk ob Vendor Management Specialist Required: No Is patient in pain?: No Allergies No Known Allergies Allergy (Verified 04/09/25 11:45) Medications ???Medication ???Instructions ???Recorded ???Confirmed ???Type multivitamin no.47-iron fum 27 1 cap PO DAILY Check with primary 03/30/21 04/09/25 History mg-folate no.1 1 mg-dha 300 mg doctor capsule (PNV-DHA) Last Menstrual Period: 08/17/24 Zika: Zika virus screening: Negative : No PFSH PFSH Medical History atony of uterus with hemorrhage Vaginal delivery Low-lying placenta in second trimester Surgical History [place] teeth extracted Family History Grandfather Cancer, Onset Age: 60 Maternal skin cancer Hypertension Maternal Paternal Mother Diabetes Hypertension Grandfather Heart disease Maternal Father Hypertension Grandmother Hypertension Maternal Paternal Social History adopted: No household members: spouse and children housing: house number of children: 1 current occupational status: unemployed current occupation: [employer] pets and animals: Yes (Avoid litterbox) pets and animals: cat(s) and dog(s) history of recent travel: Yes (- September) out of state: Yes out of country: No sexually active: Yes Smoking Status: Never smoker second hand exposure: No alcohol intake: never substance use type: does not use well-balanced diet: daily or most days caffeine: Yes Type: coffee Number of servings: 1 eating out: 1-3 times/week during the past year weight has: increased > 10 lbs what type of physical activity do you participate in: walking, bicycling and other details: strength training frequency: daily duration: 45-60 minutes/day manuel/bahai: Temple seatbelt use: always do you feel safe at home: Yes additional social history: - Richi- [employer] History 2 Elective abortions 0 Hx Para 1 Spontaneous abortions Hx # Term Pregnancies Ectopic pregnancies Hx # Pregnancies Multiple births # of living children 1 Past Pregnancies Del. Date Name GA/Weeks Outcome Route Bth Weight Infant Gen Labor Lgth Anesthesia Del Locatn Provider FOB 11/27/21 Lisa 41 live - full term 7lbs 9oz Female epidural [facility] Estefany Stoddard Delivery Date: 11/27/21 Last Updated by: Lianet Caceres hemorrhage, atony of uterus HPI 34 wk ob Details: BARRIE WEBSTER is a 40 year old who presents for routine OB visit. OB Visit BRITANY Calculator Estimated Delivery Date Method Current WG Current Estimate 05/24/25 LMP (Certain) 33w 4d Other Estimates 05/25/25 Ultrasound #1 33w 3d Expected Delivery Route/Plan Labor Preferences- CB/BF classes: NO labor support person: Richi labor intervention preferences: [] pain management options preferred: epidural cut cord/dad catch: yes : yes PP control planned: [] discussed possible routes of delivery and associated risks: [] special requests: [] Specific Issue/Plans Covid status: [] Flu vaccine: [] Tdap vaccine: [] Rhogam: na LARC form signed: [] Problem list reviewed and updated with the most current plan of care details and appropriate orders placed. Relevant counseling for the gestational age provided. Continue routine care and follow up unless otherwise noted in visit notes/problem list details Initial Weight: 138 lb Date -???-???-???-???-?? ?-???-???-???-???-? ??-???-???- EGA Weight BP Urine Prot -???-???-???-???-?? ?-???-???-???-???-? ??-???-???- Glucose FHR FuHt Pres Dilation -???-???-???-???-?? ?-???-???-???-???-? ??-???-???- Effaced St Visit Note 10/19/24 -???-???-???-???-?? ?-???-???-???-???-? ??-???-???- 9w 0d 138 lb (+0 oz) 107/69 -???-???-???-???-?? ?-???-???-???-???-? ??-???-???- 179 -???-???-???-???-?? ?-???-???-???-???-? ??-???-???- KW- CRL cons with dates. Accepts NIPT. 11/20/24 -???-???-???-???-?? ?-???-???-???-???-? ??-???-???- 13w 4d 139 lb 2 oz (+1 lb 2 oz) 99/56 Negative -???-???-???-???-?? ?-???-???-???-???-? ? (more content not included)... Normal [facility] Recreational Assistant Office Visit Reporton 03-27-2025 Recreational Assistant Office Visit Report [facility] [address], [address] [place] [address] OFFICE VISIT Date of Service: 03/27/25 MR#: [id number] Acct: [id number] Name: BARRIE WEBSTER Rep #: [id number] : 1985 Provider: Dr. Manasa Cano DO Age/Sex: 39/F Location: [facility] [place] [facility] [place] Status: Signed Intake Vital Signs 01/16/25 08:47 03/13/25 09:20 03/27/25 09:27 03/27/25 09:27 Height 5 ft 5 in 5 ft 5 in 5 ft 5 in 5 ft 5 in Weight: 159 lb 4 oz BMI 26.4 BP 107/69 Intake Visit Reasons: 32 wk ob Vendor Management Specialist Required: No Is patient in pain?: No Allergies No Known Allergies Allergy (Verified 03/27/25 09:27) Medications ???Medication ???Instructions ???Recorded ???Confirmed ???Type multivitamin no.47-iron fum 27 1 cap PO DAILY Check with primary 03/30/21 03/27/25 History mg-folate no.1 1 mg-dha 300 mg doctor capsule (PNV-DHA) Last Menstrual Period: 08/17/24 Zika: Zika virus screening: Negative : No PFSH PFSH Medical History atony of uterus with hemorrhage Vaginal delivery Low-lying placenta in second trimester Surgical History [place] teeth extracted Family History Grandfather Cancer, Onset Age: 60 Maternal skin cancer Hypertension Maternal Paternal Mother Diabetes Hypertension Grandfather Heart disease Maternal Father Hypertension Grandmother Hypertension Maternal Paternal Social History adopted: No household members: spouse and children housing: house number of children: 1 current occupational status: unemployed current occupation: [employer] pets and animals: Yes (Avoid litterbox) pets and animals: cat(s) and dog(s) history of recent travel: Yes (- September) out of state: Yes out of country: No sexually active: Yes Smoking Status: Never smoker second hand exposure: No alcohol intake: never substance use type: does not use well-balanced diet: daily or most days caffeine: Yes Type: coffee Number of servings: 1 eating out: 1-3 times/week during the past year weight has: increased > 10 lbs what type of physical activity do you participate in: walking, bicycling and other details: strength training frequency: daily duration: 45-60 minutes/day manuel/bahai: Temple seatbelt use: always do you feel safe at home: Yes additional social history: - Richi- [employer] History 2 Elective abortions 0 Hx Para 1 Spontaneous abortions Hx # Term Pregnancies Ectopic pregnancies Hx # Pregnancies Multiple births # of living children 1 Past Pregnancies Del. Date Name GA/Weeks Outcome Route Bth Weight Infant Gen Labor Lgth Anesthesia Del Locatn Provider FOB 11/27/21 Lisa 41 live - full term 7lbs 9oz Female epidural [facility] Estefany Stoddard Delivery Date: 11/27/21 Last Updated by: Lianet Caceres hemorrhage, atony of uterus HPI 32 wk ob Details: BARRIE WEBSTER is a 39 year old who presents for routine OB visit. OB Visit BRITANY Calculator Estimated Delivery Date Method Current WG Current Estimate 05/24/25 LMP (Certain) 31w 5d Other Estimates 05/25/25 Ultrasound #1 31w 4d Expected Delivery Route/Plan Labor Preferences- CB/BF classes: NO labor support person: Richi labor intervention preferences: [] pain management options preferred: epidural cut cord/dad catch: yes : yes PP control planned: [] discussed possible routes of delivery and associated risks: [] special requests: [] Specific Issue/Plans Covid status: [] Flu vaccine: [] Tdap vaccine: [] Rhogam: na LARC form signed: [] Problem list reviewed and updated with the most current plan of care details and appropriate orders placed. Relevant counseling for the gestational age provided. Continue routine care and follow up unless otherwise noted in visit notes/problem list details Initial Weight: 138 lb Date -???-???-???-???-?? ?-???-???-???-???-? ??-???-???- EGA Weight BP Urine Prot -???-???-???-???-?? ?-???-???-???-???-? ??-???-???- Glucose FHR FuHt Pres Dilation -???-???-???-???-?? ?-???-???-???-???-? ??-???-???- Effaced St Visit Note 10/19/24 -???-???-???-???-?? ?-???-???-???-???-? ??-???-???- 9w 0d 138 lb (+0 oz) 107/69 -???-???-???-???-?? ?-???-???-???-???-? ??-???-???- 179 -???-???-???-???-?? ?-???-???-???-???-? ??-???-???- KW- CRL cons with dates. Accepts NIPT. 11/20/24 -???-???-???-???-?? ?-???-???-???-???-? ??-???-???- 13w 4d 139 lb 2 oz (+1 lb 2 oz) 99/56 Negative -???-???-???-???-?? ?-???-??? (more content not included)... Normal [facility] - Chemistry and C hemistry - challengeOrdered By: Calista Davis on 03-13-2025 Glucose Ql (U) Negative [facility] - UrinalysisOrder ed By: Calista Davis on 03-13-2025 Protein Ql (U) Negative [facility] Recreational Assistant Office Visit Reporton 03-13-2025 Recreational Assistant Office Visit Report [facility] [address], [address] [place] [address] OFFICE VISIT Date of Service: 03/13/25 MR#: [id number] Acct: [id number] Name: BARRIE WEBSTER Rep #: [id number] : 1985 Provider: Dr. Calista taylor MD Age/Sex: 39/F Location[place] [facility] [place] [facility] [place] Status: Signed Intake Vital Signs 12/19/24 09:20 02/12/25 08:43 03/13/25 09:20 Height 5 ft 5 in 5 ft 5 in 5 ft 5 in Weight: 155 lb 1 oz BMI 25.8 BP 104/53 L Intake Visit Reasons: 30wk ob Vendor Management Specialist Required: No Is patient in pain?: No Allergies No Known Allergies Allergy (Verified 03/13/25 09:20) Medications ???Medication ???Instructions ???Recorded ???Confirmed ???Type multivitamin no.47-iron fum 27 1 cap PO DAILY Check with primary 03/30/21 03/13/25 History mg-folate no.1 1 mg-dha 300 mg doctor capsule (PNV-DHA) Last Menstrual Period: 08/17/24 Zika: Zika virus screening: Negative : No PFSH PFSH Medical History atony of uterus with hemorrhage Vaginal delivery Low-lying placenta in second trimester Surgical History [place] teeth extracted Family History Grandfather Cancer, Onset Age: 60 Maternal skin cancer Hypertension Maternal Paternal Mother Diabetes Hypertension Grandfather Heart disease Maternal Father Hypertension Grandmother Hypertension Maternal Paternal Social History adopted: No household members: spouse and children housing: house number of children: 1 current occupational status: unemployed current occupation: [employer] pets and animals: Yes (Avoid litterbox) pets and animals: cat(s) and dog(s) history of recent travel: Yes (- September) out of state: Yes out of country: No sexually active: Yes Smoking Status: Never smoker second hand exposure: No alcohol intake: never substance use type: does not use well-balanced diet: daily or most days caffeine: Yes Type: coffee Number of servings: 1 eating out: 1-3 times/week during the past year weight has: increased > 10 lbs what type of physical activity do you participate in: walking, bicycling and other details: strength training frequency: daily duration: 45-60 minutes/day manuel/bahai: Temple seatbelt use: always do you feel safe at home: Yes additional social history: - Richi- [employer] History 2 Elective abortions 0 Hx Para 1 Spontaneous abortions Hx # Term Pregnancies Ectopic pregnancies Hx # Pregnancies Multiple births # of living children 1 Past Pregnancies Del. Date Name GA/Weeks Outcome Route Bth Weight Infant Gen Labor Lgth Anesthesia Del Locatn Provider FOB 11/27/21 Lisa 41 live - full term 7lbs 9oz Female epidural [facility] Estefany Stoddard Delivery Date: 11/27/21 Last Updated by: Lianet Caceres hemorrhage, atony of uterus HPI 30wk ob Details: BARRIE WEBSTER is a 39 year old who presents for routine OB visit. OB Visit BRITANY Calculator Estimated Delivery Date Method Current WG Current Estimate 05/24/25 LMP (Certain) 29w 5d Other Estimates 05/25/25 Ultrasound #1 29w 4d Expected Delivery Route/Plan Labor Preferences- CB/BF classes: NO labor support person: Rihci labor intervention preferences: [] pain management options preferred: epidural cut cord/dad catch: yes : yes PP control planned: [] discussed possible routes of delivery and associated risks: [] special requests: [] Specific Issue/Plans Covid status: [] Flu vaccine: [] Tdap vaccine: [] Rhogam: na LARC form signed: [] Problem list reviewed and updated with the most current plan of care details and appropriate orders placed. Relevant counseling for the gestational age provided. Continue routine care and follow up unless otherwise noted in visit notes/problem list details Initial Weight: 138 lb Date -???-???-???-???-?? ?-???-???-???-???-? ??-???-???- EGA Weight BP Urine Prot -???-???-???-???-?? ?-???-???-???-???-? ??-???-???- Glucose FHR FuHt Pres Dilation -???-???-???-???-?? ?-???-???-???-???-? ??-???-???- Effaced St Visit Note 10/19/24 -???-???-???-???-?? ?-???-???-???-???-? ??-???-???- 9w 0d 138 lb (+0 oz) 107/69 -???-???-???-???-?? ?-???-???-???-???-? ??-???-???- 179 -???-???-???-???-?? ?-???-???-???-???-? ??-???-???- KW- CRL cons with dates. Accepts NIPT. 11/20/24 -???-???-???-???-?? ?-???-???-???-???-? ??-???-???- 13w 4d 139 lb 2 oz (+1 lb 2 oz) 99/56 Negative -???-???-???-???-?? ?-???-???-???-???-? ??-???-???- Negative 150 (more content not included)... Normal [facility] Absolute lymphocyte countOrd ered By: Nneka Salcido on 02-12-2025 Lymphocytes Auto (Unsp spec) [#/Vol] 1.21 10*3/uL 0.83-4.51 [facility] Absolute neutrophil countOrd ered By: Nneka Slacido on 02-12-2025 Neutrophils (Bld) [#/Vol] 6.8 10*3/uL 2.0-7.7 [facility] Automated lymphocyte count a s percentage of total leukocytesOrdered By: Nneka Salcido on 02-12-2025 Lymphocytes/100 WBC Auto (Unsp spec) 13.7 % Low 19-41 [facility] Basophil percentageOrdered B y: Nneka Salcido on 02-12-2025 Basophils/100 WBC (Bld) 0.6 % 0-1 [facility] CBC W/Diff, Automatedon 01-28 Absolute Lymph 1.21 X10 3/uL Normal 0.83-4.51 [facility] Comment on above: Performed By: #### L 3890.6006, L100.0100, L501.0250, L509.8002 #### [facility] [address] [place], [address] Absolute Neut 6.8 X10 3/uL Normal 2.0-7.7 [facility] Comment on above: Performed By: #### L 3890.6006, L100.0100, L501.0250, L509.8002 #### [facility] [address] [place], [address] Basophils/100 WBC (Bld) 0.6 % Normal 0-1 [facility] Comment on above: Performed By: #### L 3890.6006, L100.0100, L501.0250, L509.8002 #### [facility] [address] [place], [address] Eosinophils/100 WBC (Bld) 4.3 % Normal 0-5 [facility] Comment on above: Performed By: #### L 3890.6006, L100.0100, L501.0250, L509.8002 #### [facility] [address] [place], [address] Erythrocyte distribution width (RBC) [Ratio] 13.2 % Normal 11.6-14.6 [facility] Comment on above: Performed By: #### L 3890.6006, L100.0100, L501.0250, L509.8002 #### [facility] [address] [place], [address] Hematocrit (Bld) [Volume fraction] 35.2 % Low 37-47 [facility] Comment on above: Performed By: #### L 3890.6006, L100.0100, L501.0250, L509.8002 #### [facility] [address] [place], [address] Hemoglobin (Bld) [Mass/Vol] 11.7 g/dL Low 12.0-15.0 [facility] Comment on above: Performed By: #### L 3890.6006, L100.0100, L501.0250, L509.8002 #### [facility] [address] [place], [address] IG% 0.600 Normal 0.0-0.9 [facility] Comment on above: Result Comment: IG% - Immature Granulocytes (promyelocytes, myelocytes and metamyelocytes) > 1% indicates that a LEFT SHIFT is Present. Performed By: #### L 3890.6006, L100.0100, L501.0250, L509.8002 #### [facility] [address] [place], [address] Lymphocytes/100 WBC (Bld) 13.7 % Low 19-41 [facility] Comment on above: Performed By: #### L 3890.6006, L100.0100, L501.0250, L509.8002 #### [facility] [address] [place], [address] MCH (RBC) [Entitic mass] 32.8 pg High 27.0-32.0 [facility] Comment on above: Performed By: #### L 3890.6006, L100.0100, L501.0250, L509.8002 #### [facility] [address] [place], [address] MCHC (RBC) [Mass/Vol] 33.2 g/dL Normal 32-36 [facility] Comment on above: Performed By: #### L 3890.6006, L100.0100, L501.0250, L509.8002 #### [facility] [address] [place], [address] MCV (RBC) [Entitic vol] 98.6 fL Normal 81-99 [facility] Comment on above: Performed By: #### L 3890.6006, L100.0100, L501.0250, L509.8002 #### [facility] [address] [place], [address] Monocytes/100 WBC (Bld) 4.2 % Normal 0-10 [facility] Comment on above: Performed By: #### L 3890.6006, L100.0100, L501.0250, L509.8002 #### [facility] [address] [place], [address] Neutrophils/100 WBC (Bld) 76.6 % High 47-70 [facility] Comment on above: Performed By: #### L 3890.6006, L100.0100, L501.0250, L509.8002 #### [facility] [address] [place], [address] Nucleated RBC (Bld) [#/Vol] 0 10*3/uL Normal 0-5 [facility] Comment on above: Performed By: #### L 3890.6006, L100.0100, L501.0250, L509.8002 #### [facility] [address] [place], [address] Platelet mean volume (Bld) [Entitic vol] 9.1 fL Normal 6.2-12.0 [facility] Comment on above: Performed By: #### L 3890.6006, L100.0100, L501.0250, L509.8002 #### [facility] [address] [place], [address] Platelets (Bld) [#/Vol] 260 10*3/uL Normal 150-450 [facility] Comment on above: Performed By: #### L 3890.6006, L100.0100, L501.0250, L509.8002 #### [facility] [address] [place], [address] RBC (Bld) [#/Vol] 3.57 10*6/uL Low 4.2-5.4 [facility] Comment on above: Performed By: #### L 3890.6006, L100.0100, L501.0250, L509.8002 #### [facility] [address] [place], [address] RDW SD 47.8 fl High 35.1-43.9 [facility] Comment on above: Performed By: #### L 3890.6006, L100.0100, L501.0250, L509.8002 #### [facility] [address] [place], [address] WBC (Bld) [#/Vol] 8.9 10*3/uL Normal 4.4-11.0 [facility] Comment on above: Performed By: #### L 3890.6006, L100.0100, L501.0250, L509.8002 #### [facility] [address] [place], [address] Eosinophil percentageOrdered By: Nneka Salcido on 02-12-2025 Eosinophils/100 WBC (Bld) 4.3 % 0-5 [facility] Erythrocyte distribution wid th ratioOrdered By: Nneka Salcido on 02-12-2025 Erythrocyte distribution width (RBC) [Ratio] 13.2 % 11.6-14.6 [facility] Erythrocyte distribution wid th standard deviationOrdered By: Nneka Salcido on 02-12-2025 Erythrocyte distribution width (RBC) [Ratio] 47.8 fl High 35.1-43.9 [facility] Glucose Challenge Gest 1H 50 margaret 02-12-2025 GLU GEST 50g 1H 76 mg/dL Normal 70-140 [facility] Comment on above: Performed By: #### L 3890.6006, L100.0100, L501.0250, L509.8002 #### [facility] [address] [place], [address] Glucose measurement at 2 maryann rs post-dose gestational glucose tolerance testOrdered By: Nneka Salcido on 02-12-2025 Glucose [Mass/Vol] 76 mg/dL 70-140 [facility] HIVon 02-12-2025 HIV Non-Reactive Normal Nonreactive [facility] Comment on above: Result Comment: Non- Reactive Reactive Repeatedly reactive samples must be confirmed according to CDC recommended confirmatory algorithms. The subresults for either HIVAG or AHIV can be used as an aid in the selection of the confirmation algorithm for reactive samples. Send out specimens with Reactive results to [facility] for confirmation. Order the HIV antibody detection and differentiation: lc#[id number] Performed By: #### L 3890.6006, L100.0100, L501.0250, L509.8002 #### [facility] [address] [place], [address] Hematocrit Auto (Bld) [Volum e fraction]Ordered By: Nneka Salcido on 02-12-2025 Hematocrit (Bld) [Volume fraction] 35.2 % Low 37-47 [facility] Hemoglobin measurementOrdere d By: Nneka Salcido on 02-12-2025 Hemoglobin (Bld) [Mass/Vol] 11.7 g/dL Low 12.0-15.0 [facility] Immature granulocytes/100 WB C Auto (Bld)Ordered By: Nneka Salcido on 02-12-2025 Immature granulocytes/100 WBC (Bld) 0.600 % 0.0-0.9 [facility] Comment on above: IG% - Immature Granu locytes (promyelocytes, myelocytes and metamyelocytes) > 1% indicates that a LEFT SHIFT is Present. Laboratory - Chemistry and C hemistry - challengeOrdered By: Nneka Salcido on 02-12-2025 Glucose Ql (U) Negative [facility] - UrinalysisOrder ed By: Nneka Salcido on 02-12-2025 Protein Ql (U) Negative [facility] MCV (mean corpuscular volume ) determinationOrdered By: Nneka Salcido on 02-12-2025 MCV (RBC) [Entitic vol] 98.6 fL 81-99 [facility] Mean corpuscular hemoglobin (MCH) determinationOrdered By: Nneka Salcido on 02-12-2025 MCH (RBC) [Entitic mass] 32.8 pg High 27.0-32.0 [facility] Mean corpuscular hemoglobin concentration (MCHC) determinationOrdered By: Nneka Salcido on 02-12-2025 MCHC (RBC) [Mass/Vol] 33.2 g/dL 32-36 [facility] Mean platelet volume determi nationOrdered By: Nneka Salcido on 02-12-2025 Platelet mean volume (Bld) [Entitic vol] 9.1 fL 6.2-12.0 [facility] Monocyte percentageOrdered B y: Nneka Salcido on 02-12-2025 Monocytes/100 WBC (Bld) 4.2 % 0-10 [facility] Neutrophil percentageOrdered By: Nneka Salcido on 02-12-2025 Neutrophils/100 WBC (Bld) 76.6 % High 47-70 [facility] No Panel InformationOrdered By: Nneka Salcido on 02-12-2025 HIV (1&2) Antibody Non-Reactive Nonreactive [facility] Comment on above: Non-ReactiveReactive Repeatedly reactive samples must be confirmed according to CDC recommended confirmatory algorithms. The subresults for either HIVAG or AHIV can be used as an aid in the selection of the confirmation algorithm for reactive samples.Send out specimens with Reactive results to [facility] for confirmation.Order the HIV antibody detection and differentiation: #[id number] Nucleated red blood cell per centageOrdered By: Nneka Salcido on 02-12-2025 Nucleated RBC/100 WBC (Bld) [Ratio] 0 % 0-5 [facility] Recreational Assistant Office Visit Reporton 02-12-2025 Recreational Assistant Office Visit Report [facility] [address], [address] [place] [address] OFFICE VISIT Date of Service: 02/12/25 MR#: [id number] Acct: [id number] Name: BARRIE WEBSTER Rep #: [id number] : 1985 Provider: BRODIE Alatorre [facility] Age/Sex: 39/F Location[place] [facility] [place] [facility] [place] Status: Signed Intake Vital Signs 12/19/24 09:20 01/16/25 08:47 02/12/25 08:43 Height 5 ft 5 in 5 ft 5 in 5 ft 5 in Weight: 150 lb 7 oz BMI 25.0 BP 105/73 Intake Visit Reasons: 26wk ob/glucose Chief Complaint: 26wk OB/Glucose Vendor Management Specialist Required: No Is patient in pain?: No Allergies No Known Allergies Allergy (Verified 02/12/25 08:41) Medications ???Medication ???Instructions ???Recorded ???Confirmed ???Type multivitamin no.47-iron fum 27 1 cap PO DAILY Check with primary 03/30/21 02/12/25 History mg-folate no.1 1 mg-dha 300 mg doctor capsule (PNV-DHA) Last Menstrual Period: 08/17/24 : No PFSH PFSH Medical History atony of uterus with hemorrhage Vaginal delivery Low-lying placenta in second trimester Surgical History [place] teeth extracted Family History Grandfather Cancer, Onset Age: 60 Maternal skin cancer Hypertension Maternal Paternal Mother Diabetes Hypertension Grandfather Heart disease Maternal Father Hypertension Grandmother Hypertension Maternal Paternal Social History adopted: No household members: spouse and children housing: house number of children: 1 current occupational status: unemployed current occupation: [employer] pets and animals: Yes (Avoid litterbox) pets and animals: cat(s) and dog(s) history of recent travel: Yes (- September) out of state: Yes out of country: No sexually active: Yes Smoking Status: Never smoker second hand exposure: No alcohol intake: never substance use type: does not use well-balanced diet: daily or most days caffeine: Yes Type: coffee Number of servings: 1 eating out: 1-3 times/week during the past year weight has: increased > 10 lbs what type of physical activity do you participate in: walking, bicycling and other details: strength training frequency: daily duration: 45-60 minutes/day manuel/bahai: Temple seatbelt use: always do you feel safe at home: Yes additional social history: - Richi- [employer] History 2 Elective abortions 0 Hx Para 1 Spontaneous abortions Hx # Term Pregnancies Ectopic pregnancies Hx # Pregnancies Multiple births # of living children 1 Past Pregnancies Del. Date Name GA/Weeks Outcome Route Bth Weight Gen Labor Lgth Anesthesia Del Locatn Provider FOB 11/27/21 Lisa 41 live - full term 7lbs 9oz Female epidural [facility] Estefany Stoddard Delivery Date: 11/27/21 Last Updated by: Lianet Caceres hemorrhage, atony of uterus HPI 26wk ob/glucose Details: BARRIE WEBSTER is a 39 year old who presents for routine OB visit. OB Visit BRITANY Calculator Estimated Delivery Date Method Current WG Current Estimate 05/24/25 LMP (Certain) 25w 4d Other Estimates 05/25/25 Ultrasound #1 25w 3d Expected Delivery Route/Plan Labor Preferences- CB/BF classes: NO labor support person: Richi labor intervention preferences: [] pain management options preferred: epidural cut cord/dad catch: yes : yes PP control planned: [] discussed possible routes of delivery and associated risks: [] special requests: [] Specific Issue/Plans Covid status: [] Flu vaccine: [] Tdap vaccine: [] Rhogam: na LARC form signed: [] Problem list reviewed and updated with the most current plan of care details and appropriate orders placed. Relevant counseling for the gestational age provided. Continue routine care and follow up unless otherwise noted in visit notes/problem list details Initial Weight: 138 lb Date -???-???-???-???-?? ?-???-???-???-???-? ??-???-???- EGA Weight BP Urine Prot -???-???-???-???-?? ?-???-???-???-???-? ??-???-???- Glucose FHR FuHt Pres Dilation -???-???-???-???-?? ?-???-???-???-???-? ??-???-???- Effaced St Visit Note 10/19/24 -???-???-???-???-?? ?-???-???-???-???-? ??-???-???- 9w 0d 138 lb (+0 oz) 107/69 -???-???-???-???-?? ?-???-???-???-???-? ??-???-???- 179 -???-???-???-???-?? ?-???-???-???-???-? ??-???-???- KW- CRL cons with dates. Accepts NIPT. 11/20/24 -???-???-???-???-?? ?-???-???-???-???-? ??-???-???- 13w 4d 139 lb 2 oz (+1 lb 2 oz) 99/56 Negative -???-???-???-???-?? ?-???-???-???-???-? ??-???-???- Negative 150 -???-??? (more content not included)... Normal [facility] Platelet countOrdered By: Angelo Salcido on 02-12-2025 Platelets (Bld) [#/Vol] 260 10*3/uL 150-450 [facility] RBC Auto (Bld) [#/Vol]Ordere d By: Nneka Salcido on 02-12-2025 RBC (Bld) [#/Vol] 3.57 10*6/uL Low 4.2-5.4 [facility] Syphilis Antibodieson 2024 Syphilis Abs Non-Reactive Normal Nonreactive [facility] Comment on above: Performed By: #### L 3890.6006, L100.0100, L501.0250, L509.8002 #### [facility] [address] [place], [address] White blood cell (WBC) count Ordered By: Nneka Salcido on 02-12-2025 WBC (Bld) [#/Vol] 8.9 10*3/uL 4.4-11.0 [facility] - Chemistry and C hemistry - challengeOrdered By: Winter Sheffield on 01-16-2025 Glucose Ql (U) Negative [facility] - UrinalysisOrder ed By: Winter Sheffield on 01-16-2025 Protein Ql (U) Negative [facility] Recreational Assistant Office Visit Reporton 01-16-2025 Recreational Assistant Office Visit Report [facility], [address] [place] [address] OFFICE VISIT Date of Service: 01/16/25 MR#: [id number] Acct: [id number] Name: BARRIE WEBSTER Rep #: [id number] : 1985 Provider: TREY [place] Age/Sex: 39/F Location[place] [facility] [place] [facility] [place] Status: Signed Intake Vital Signs 10/19/24 08:41 12/19/24 09:20 01/16/25 08:39 01/16/25 08:47 Height 5 ft 5 in 5 ft 5 in 5 ft 5 in 5 ft 5 in Weight: 145 lb 5 oz BMI 24.1 BP 98/60 Intake Visit Reasons: 22wk ob Chief Complaint: 22 Week OB Vendor Management Specialist Required: No Is patient in pain?: No Allergies No Known Allergies Allergy (Verified 01/16/25 08:38) Medications ???Medication ???Instructions ???Recorded ???Confirmed ???Type multivitamin no.47-iron fum 27 1 cap PO DAILY Check with primary 03/30/21 01/16/25 History mg-folate no.1 1 mg-dha 300 mg doctor capsule (PNV-DHA) Last Menstrual Period: 08/17/24 Zika: Zika virus screening: Negative : No PFSH PFSH Medical History atony of uterus with hemorrhage Vaginal delivery Low-lying placenta in second trimester Surgical History [place] teeth extracted Family History Grandfather Cancer, Onset Age: 60 Maternal skin cancer Hypertension Maternal Paternal Mother Diabetes Hypertension Grandfather Heart disease Maternal Father Hypertension Grandmother Hypertension Maternal Paternal Social History adopted: No household members: spouse and children housing: house number of children: 1 current occupational status: unemployed current occupation: [employer] pets and animals: Yes (Avoid litterbox) pets and animals: cat(s) and dog(s) history of recent travel: Yes (- September) out of state: Yes out of country: No sexually active: Yes Smoking Status: Never smoker second hand exposure: No alcohol intake: never substance use type: does not use well-balanced diet: daily or most days caffeine: Yes Type: coffee Number of servings: 1 eating out: 1-3 times/week during the past year weight has: increased > 10 lbs what type of physical activity do you participate in: walking, bicycling and other details: strength training frequency: daily duration: 45-60 minutes/day manuel/bahai: Temple seatbelt use: always do you feel safe at home: Yes additional social history: - Richi- [employer] History 2 Elective abortions 0 Hx Para 1 Spontaneous abortions Hx # Term Pregnancies Ectopic pregnancies Hx # Pregnancies Multiple births # of living children 1 Past Pregnancies Del. Date Name GA/Weeks Outcome Route Bth Weight Gen Labor Lgth Anesthesia Del Locatn Provider FOB 11/27/21 Lisa 41 live - full term 7lbs 9oz Female epidural [facility] Estefany avila Krystal Stoddard Delivery Date: 11/27/21 Last Updated by: Lianet Caceres hemorrhage, atony of uterus HPI 22wk ob Details: BARRIE WEBSTER is a 39 year old who presents for routine OB visit. OB Visit BRITANY Calculator Estimated Delivery Date Method Current WG Current Estimate 05/24/25 LMP (Certain) 21w 5d Other Estimates 05/25/25 Ultrasound #1 21w 4d Expected Delivery Route/Plan Labor Preferences- CB/BF classes: NO labor support person: Richi labor intervention preferences: [] pain management options preferred: epidural cut cord/dad catch: yes : yes PP control planned: [] discussed possible routes of delivery and associated risks: [] special requests: [] Specific Issue/Plans Covid status: [] Flu vaccine: [] Tdap vaccine: [] Rhogam: na LARC form signed: [] Problem list reviewed and updated with the most current plan of care details and appropriate orders placed. Relevant counseling for the gestational age provided. Continue routine care and follow up unless otherwise noted in visit notes/problem list details Initial Weight: 138 lb Date -???-???-???-???-?? ?-???-???-???-???-? ??-???-???- EGA Weight BP Urine Prot -???-???-???-???-?? ?-???-???-???-???-? ??-???-???- Glucose FHR FuHt Pres Dilation -???-???-???-???-?? ?-???-???-???-???-? ??-???-???- Effaced St Visit Note 10/19/24 -???-???-???-???-?? ?-???-???-???-???-? ??-???-???- 9w 0d 138 lb (+0 oz) 107/69 -???-???-???-???-?? ?-???-???-???-???-? ??-???-???- 179 -???-???-???-???-?? ?-???-???-???-???-? ??-???-???- KW- CRL cons with dates. Accepts NIPT. 11/20/24 -???-???-???-???-?? ?-???-???-???-???-? ??-???-???- 13w 4d 139 lb 2 oz (+1 lb 2 oz) 99/56 Negative -???-? (more content not included)... Normal [facility] - Chemistry and C hemistry - challengeOrdered By: Manasa Hernandez on 12-19-2024 Glucose Ql (U) Negative [facility] - UrinalysisOrder ed By: Manasa Hernandez on 12-19-2024 Protein Ql (U) Negative [facility] Recreational Assistant Office Visit Reporton 12-19-2024 Recreational Assistant Office Visit Report [facility] [address], [address] [place] [address] OFFICE VISIT Date of Service: 12/19/24 MR#: [id number] Acct: [id number] Name: BARRIE WEBSTER Rep #: [id number] : 1985 Provider: Dr. Manasa Cano, Age/Sex: 39/F Location: [facility] Status: Signed Intake Vital Signs 10/19/24 08:41 11/20/24 12:59 12/19/24 09:20 Height 5 ft 5 in 5 ft 5 in 5 ft 5 in Weight: 144 lb 8 oz BMI 24.0 BP 98/65 Intake Visit Reasons: 18wk ob Vendor Management Specialist Required: No Is patient in pain?: No Allergies No Known Allergies Allergy (Verified 12/19/24 09:21) Medications ???Medication ???Instructions ???Recorded ???Confirmed ???Type multivitamin no.47-iron fum 27 1 cap PO DAILY Check with primary 03/30/21 12/19/24 History mg-folate no.1 1 mg-dha 300 mg doctor capsule (PNV-DHA) Last Menstrual Period: 08/17/24 Zika: Zika virus screening: Negative : No PFSH PFSH Medical History atony of uterus with hemorrhage Vaginal delivery Low-lying placenta in second trimester Surgical History [place] teeth extracted Family History Grandfather Cancer, Onset Age: 60 Maternal skin cancer Hypertension Maternal Paternal Mother Diabetes Hypertension Grandfather Heart disease Maternal Father Hypertension Grandmother Hypertension Maternal Paternal Social History adopted: No household members: spouse and children housing: house number of children: 1 current occupational status: unemployed current occupation: [employer] pets and animals: Yes (Avoid litterbox) pets and animals: cat(s) and dog(s) history of recent travel: Yes (- September) out of state: Yes out of country: No sexually active: Yes Smoking Status: Never smoker second hand exposure: No alcohol intake: never substance use type: does not use well-balanced diet: daily or most days caffeine: Yes Type: coffee Number of servings: 1 eating out: 1-3 times/week during the past year weight has: increased > 10 lbs what type of physical activity do you participate in: walking, bicycling and other details: strength training frequency: daily duration: 45-60 minutes/day manuel/bahai: Temple seatbelt use: always do you feel safe at home: Yes additional social history: - Richi- [employer] History 2 Elective abortions 0 Hx Para 1 Spontaneous abortions Hx # Term Pregnancies Ectopic pregnancies Hx # Pregnancies Multiple births # of living children 1 Past Pregnancies Del. Date Name GA/Weeks Outcome Route Bth Weight Infant Gen Labor Lgth Anesthesia Del Locatn Provider FOB 11/27/21 Lisa 41 live - full term 7lbs 9oz Female epidural [facility] Estefany avila Krystal Stoddard Delivery Date: 11/27/21 Last Updated by: Lianet Caceres hemorrhage, atony of uterus HPI 18wk ob Details: BARRIE WEBSTER is a 39 year old who presents for routine OB visit. OB Visit BRITANY Calculator Estimated Delivery Date Method Current WG Current Estimate 05/24/25 LMP (Certain) 17w 5d Other Estimates 05/25/25 Ultrasound #1 17w 4d Expected Delivery Route/Plan Labor Preferences- CB/BF classes: [] labor support person: [] labor intervention preferences: [] pain management options preferred: [] cut cord/dad catch: [] : [] PP control planned: [] discussed possible routes of delivery and associated risks: [] special requests: [] Specific Issue/Plans Covid status: [] Flu vaccine: [] Tdap vaccine: [] Rhogam: [] LARC form signed: [] Problem list reviewed and updated with the most current plan of care details and appropriate orders placed. Relevant counseling for the gestational age provided. Continue routine care and follow up unless otherwise noted in visit notes/problem list details Initial Weight: 138 lb Date -???-???-???-???-?? ?-???-???-???-???-? ??-???-???- EGA Weight BP Urine Prot -???-???-???-???-?? ?-???-???-???-???-? ??-???-???- Glucose FHR FuHt Pres Dilation -???-???-???-???-?? ?-???-???-???-???-? ??-???-???- Effaced St Visit Note 10/19/24 -???-???-???-???-?? ?-???-???-???-???-? ??-???-???- 9w 0d 138 lb (+0 oz) 107/69 -???-???-???-???-?? ?-???-???-???-???-? ??-???-???- 179 -???-???-???-???-?? ?-???-???-???-???-? ??-???-???- KW- CRL cons with dates. Accepts NIPT. 11/20/24 -???-???-???-???-?? ?-???-???-???-???-? ??-???-???- 13w 4d 139 lb 2 oz (+1 lb 2 oz) 99/56 Negative -???-???-???-???-?? ?-???-???-???-???-? ??-???-???- Negative 150 -?? (more content not included)... Normal [facility] - Chemistry and C hemistry - challengeOrdered By: Calista Davis on 11-20-2024 Glucose Ql (U) Negative [facility] - UrinalysisOrder ed By: Calista Davis on 11-20-2024 Protein Ql (U) Negative [facility] Recreational Assistant Office Visit Reporton 11-20-2024 Recreational Assistant Office Visit Report [facility] [address], [address] [place] [address] OFFICE VISIT Date of Service: 11/20/24 MR#: [id number] Acct: [id number] Name: BARRIE WEBSTER Rep #: [id number] : 1985 Provider: Dr. Calista taylor MD Age/Sex: 39/F Location[place] [facility] [place] [facility] [place] Status: Signed Intake Vital Signs 01/11/22 11:22 10/19/24 08:41 11/20/24 12:59 Height 5 ft 5 in 5 ft 5 in 5 ft 5 in Weight: 139 lb 2 oz BMI 23.1 BP 99/56 L Intake Visit Reasons: 13wk OB Vendor Management Specialist Required: No Is patient in pain?: No Allergies No Known Allergies Allergy (Verified 11/20/24 13:01) Medications ???Medication ???Instructions ???Recorded ???Confirmed ???Type multivitamin no.47-iron fum 27 1 cap PO DAILY Check with primary 03/30/21 11/20/24 History mg-folate no.1 1 mg-dha 300 mg doctor capsule (PNV-DHA) Last Menstrual Period: 08/17/24 Zika: Zika virus screening: Negative : No PFSH PFSH Medical History atony of uterus with hemorrhage Vaginal delivery Low-lying placenta in second trimester Surgical History [place] teeth extracted Family History Grandfather Cancer, Onset Age: 60 Maternal skin cancer Hypertension Maternal Paternal Mother Diabetes Hypertension Grandfather Heart disease Maternal Father Hypertension Grandmother Hypertension Maternal Paternal Social History adopted: No household members: spouse and children housing: house number of children: 1 current occupational status: unemployed current occupation: [employer] pets and animals: Yes (Avoid litterbox) pets and animals: cat(s) and dog(s) history of recent travel: Yes (- September) out of state: Yes out of country: No sexually active: Yes Smoking Status: Never smoker second hand exposure: No alcohol intake: never substance use type: does not use well-balanced diet: daily or most days caffeine: Yes Type: coffee Number of servings: 1 eating out: 1-3 times/week during the past year weight has: increased > 10 lbs what type of physical activity do you participate in: walking, bicycling and other details: strength training frequency: daily duration: 45-60 minutes/day manuel/bahai: Temple seatbelt use: always do you feel safe at home: Yes additional social history: - [employer]- [employer] History 2 Elective abortions 0 Hx Para 1 Spontaneous abortions Hx # Term Pregnancies Ectopic pregnancies Hx # Pregnancies Multiple births # of living children 1 Past Pregnancies Del. Date Name GA/Weeks Outcome Route Bth Weight Gen Labor Lgth Anesthesia Del Locatn Provider FOB 11/27/21 Lisa 41 live - full term 7lbs 9oz Female epidural [facility] Estefany avila Krystal Stoddard Delivery Date: 11/27/21 Last Updated by: Lianet Caceres hemorrhage, atony of uterus HPI 13wk OB Details: BARRIE WEBSTER is a 39 year old who presents for routine OB visit. OB Visit BRITANY Calculator Estimated Delivery Date Method Current WG Current Estimate 05/24/25 LMP (Certain) 13w 4d Other Estimates 05/25/25 Ultrasound #1 13w 3d Expected Delivery Route/Plan Labor Preferences- CB/BF classes: [] labor support person: [] labor intervention preferences: [] pain management options preferred: [] cut cord/dad catch: [] : [] PP control planned: [] discussed possible routes of delivery and associated risks: [] special requests: [] Specific Issue/Plans Covid status: [] Flu vaccine: [] Tdap vaccine: [] Rhogam: [] LARC form signed: [] Problem list reviewed and updated with the most current plan of care details and appropriate orders placed. Relevant counseling for the gestational age provided. Continue routine care and follow up unless otherwise noted in visit notes/problem list details Initial Weight: 138 lb Date -???-???-???-???-?? ?-???-???-???-???-? ??-???-???- EGA Weight BP Urine Prot -???-???-???-???-?? ?-???-???-???-???-? ??-???-???- Glucose FHR FuHt Pres Dilation -???-???-???-???-?? ?-???-???-???-???-? ??-???-???- Effaced St Visit Note 10/19/24 -???-???-???-???-?? ?-???-???-???-???-? ??-???-???- 9w 0d 138 lb (+0 oz) 107/69 -???-???-???-???-?? ?-???-???-???-???-? ??-???-???- 179 -???-???-???-???-?? ?-???-???-???-???-? ??-???-???- KW- CRL cons with dates. Accepts NIPT. 11/20/24 -???-???-???-???-?? ?-???-???-???-???-? ??-???-???- 13w 4d 139 lb 2 oz (+1 lb 2 oz) 99/56 Negative -???-???-???-???-?? ?-???-???-???-???-? ??-???-???- Negative 150 -???-???-?? (more content not included)... Normal [facility] Absolute lymphocyte countOrd ered By: Nneka Salcido on 10-26-2024 Lymphocytes Auto (Unsp spec) [#/Vol] 1.45 10*3/uL 0.83-4.51 [facility] Absolute neutrophil countOrd ered By: Nneka Salcido on 10-26-2024 Neutrophils (Bld) [#/Vol] 5.1 10*3/uL 2.0-7.7 [facility] Automated lymphocyte count a s percentage of total leukocytesOrdered By: Nneka Salcido on 10-26-2024 Lymphocytes/100 WBC Auto (Unsp spec) 20.1 % 19-41 [facility] Basophil percentageOrdered B y: Nneak Salcido on 10-26-2024 Basophils/100 WBC (Bld) 0.7 % 0-1 [facility] CBC W/Diff, Automatedon 09-29 0-2024 Absolute Lymph 1.45 X10 3/uL Normal 0.83-4.51 [facility] Comment on above: Performed By: #### B TS, L509.4006, L3890.6102, L3890.6006, L509.8002, L900.0098, L3890.6301, L100.0100 ####[facility] [address] [place], [address] Absolute Neut 5.1 X10 3/uL Normal 2.0-7.7 [facility] Comment on above: Performed By: #### B TS, L509.4006, L3890.6102, L3890.6006, L509.8002, L900.0098, L3890.6301, L100.0100 ####[facility] [address] [place], [address] Basophils/100 WBC (Bld) 0.7 % Normal 0-1 [facility] Comment on above: Performed By: #### B TS, L509.4006, L3890.6102, L3890.6006, L509.8002, L900.0098, L3890.6301, L100.0100 ####[facility] [address] [place], [address] Eosinophils/100 WBC (Bld) 3.6 % Normal 0-5 [facility] Comment on above: Performed By: #### B TS, L509.4006, L3890.6102, L3890.6006, L509.8002, L900.0098, L3890.6301, L100.0100 ####[facility] [address] [place], [address] Erythrocyte distribution width (RBC) [Ratio] 14.3 % Normal 11.6-14.6 [facility] Comment on above: Performed By: #### B TS, L509.4006, L3890.6102, L3890.6006, L509.8002, L900.0098, L3890.6301, L100.0100 ####[facility] [address] [place], [address] Hematocrit (Bld) [Volume fraction] 40.8 % Normal 37-47 [facility] Comment on above: Performed By: #### B TS, L509.4006, L3890.6102, L3890.6006, L509.8002, L900.0098, L3890.6301, L100.0100 ####[facility] [address] [place], [address] Hemoglobin (Bld) [Mass/Vol] 13.4 g/dL Normal 12.0-15.0 [facility] Comment on above: Performed By: #### B TS, L509.4006, L3890.6102, L3890.6006, L509.8002, L900.0098, L3890.6301, L100.0100 ####[facility] [address] [place], [address] IG% 0.100 Normal 0.0-0.9 [facility] Comment on above: Result Comment: IG% - Immature Granulocytes (promyelocytes, myelocytes and metamyelocytes) > 1% indicates that a LEFT SHIFT is Present. Performed By: #### B TS, L509.4006, L3890.6102, L3890.6006, L509.8002, L900.0098, L3890.6301, L100.0100 ####[facility] [address] [place], [address] Lymphocytes/100 WBC (Bld) 20.1 % Normal 19-41 [facility] Comment on above: Performed By: #### B TS, L509.4006, L3890.6102, L3890.6006, L509.8002, L900.0098, L3890.6301, L100.0100 ####[facility] [address] [place], [address] MCH (RBC) [Entitic mass] 29.3 pg Normal 27.0-32.0 [facility] Comment on above: Performed By: #### B TS, L509.4006, L3890.6102, L3890.6006, L509.8002, L900.0098, L3890.6301, L100.0100 ####[facility] [address] [place], [address] MCHC (RBC) [Mass/Vol] 32.8 g/dL Normal 32-36 [facility] Comment on above: Performed By: #### B TS, L509.4006, L3890.6102, L3890.6006, L509.8002, L900.0098, L3890.6301, L100.0100 ####[facility] [address] [place], [address] MCV (RBC) [Entitic vol] 89.3 fL Normal 81-99 [facility] Comment on above: Performed By: #### B TS, L509.4006, L3890.6102, L3890.6006, L509.8002, L900.0098, L3890.6301, L100.0100 ####[facility] [address] [place], [address] Monocytes/100 WBC (Bld) 5.5 % Normal 0-10 [facility] Comment on above: Performed By: #### B TS, L509.4006, L3890.6102, L3890.6006, L509.8002, L900.0098, L3890.6301, L100.0100 ####[facility] [address] [place], [address] Neutrophils/100 WBC (Bld) 70.0 % Normal 47-70 [facility] Comment on above: Performed By: #### B TS, L509.4006, L3890.6102, L3890.6006, L509.8002, L900.0098, L3890.6301, L100.0100 ####[facility] [address] [place], [address] Nucleated RBC (Bld) [#/Vol] 0 10*3/uL Normal 0-5 [facility] Comment on above: Performed By: #### B TS, L509.4006, L3890.6102, L3890.6006, L509.8002, L900.0098, L3890.6301, L100.0100 ####[facility] [address] [place], [address] Platelet mean volume (Bld) [Entitic vol] 9.3 fL Normal 6.2-12.0 [facility] Comment on above: Performed By: #### B TS, L509.4006, L3890.6102, L3890.6006, L509.8002, L900.0098, L3890.6301, L100.0100 ####[facility] [address] [place], [address] Platelets (Bld) [#/Vol] 274 10*3/uL Normal 150-450 [facility] Comment on above: Performed By: #### B TS, L509.4006, L3890.6102, L3890.6006, L509.8002, L900.0098, L3890.6301, L100.0100 ####[facility] [address] [place], [address] RBC (Bld) [#/Vol] 4.57 10*6/uL Normal 4.2-5.4 [facility] Comment on above: Performed By: #### B TS, L509.4006, L3890.6102, L3890.6006, L509.8002, L900.0098, L3890.6301, L100.0100 ####[facility] [address] [place], [address] RDW SD 46.5 fl High 35.1-43.9 [facility] Comment on above: Performed By: #### B TS, L509.4006, L3890.6102, L3890.6006, L509.8002, L900.0098, L3890.6301, L100.0100 ####[facility] [address] [place], [address] WBC (Bld) [#/Vol] 7.2 10*3/uL Normal 4.4-11.0 [facility] Comment on above: Performed By: #### B TS, L509.4006, L3890.6102, L3890.6006, L509.8002, L900.0098, L3890.6301, L100.0100 ####[facility] [address] [place], [address] Eosinophil percentageOrdered By: Nneka Salcido on 10-26-2024 Eosinophils/100 WBC (Bld) 3.6 % 0-5 [facility] Erythrocyte distribution wid th ratioOrdered By: Nneka Salcido on 10-26-2024 Erythrocyte distribution width (RBC) [Ratio] 14.3 % 11.6-14.6 [facility] Erythrocyte distribution wid th standard deviationOrdered By: Nneka Salcido on 10-26-2024 Erythrocyte distribution width (RBC) [Ratio] 46.5 fl High 35.1-43.9 [facility] HIVon 10-26-2024 HIV Non-Reactive Normal Nonreactive [facility] Comment on above: Result Comment: Non- Reactive Reactive Repeatedly reactive samples must be confirmed according to CDC recommended confirmatory algorithms. The subresults for either HIVAG or AHIV can be used as an aid in the selection of the confirmation algorithm for reactive samples. Send out specimens with Reactive results to [facility] for confirmation. Order the HIV antibody detection and differentiation: lc#[id number] Performed By: #### B TS, L509.4006, L3890.6102, L3890.6006, L509.8002, L900.0098, L3890.6301, L100.0100 ####[facility] [address] [facility]. [place], [place], [address] Hematocrit Auto (Bld) [Volum e fraction]Ordered By: Nneka Salcido on 10-26-2024 Hematocrit (Bld) [Volume fraction] 40.8 % 37-47 [facility] Hemoglobin measurementOrdere d By: Nneka Salcido on 10-26-2024 Hemoglobin (Bld) [Mass/Vol] 13.4 g/dL 12.0-15.0 [facility] Hepatitis C Antibodyon 10-26 Hepatitis C Ab Non-Reactive Normal Nonreactive [facility] Comment on above: Result Comment: Reac tive: Presumptive evidence of antibodies to HCV. Follow CDC recommendations for supplemental testing. Non-Reactive: Antibodies to HCV were not detected; does not exclude the possibility of exposure to HCV Reactive Results are presumptive evidence of antibodies to HCV. Follow CDC recommendations for supplemental testing. Order confirmation testing: HCV Quant by PCR testing - HCVPCR #[id number] Non Reactive: < 0.8 Equivocal: >/= 0.8 to < 1.0 Reactive: >/= 1.0 The CDC requires that a reactive/equivocal HCV antibody result be sent out for confirmation. HCV Quant by PCR testing. Performed By: #### B TS, L509.4006, L3890.6102, L3890.6006, L509.8002, L900.0098, L3890.6301, L100.0100 ####[facility] [address] [place], [place], [address] Immature granulocytes/100 WB C Auto (Bld)Ordered By: Nneka Salcido on 10-26-2024 Immature granulocytes/100 WBC (Bld) 0.100 % 0.0-0.9 [facility] Comment on above: IG% - Immature Granu locytes (promyelocytes, myelocytes and metamyelocytes) > 1% indicates that a LEFT SHIFT is Present. L3890.6102on 10-26-2024 HEP B Surf Ag Non-Reactive Normal Nonreactive [facility] Comment on above: Result Comment: Reac tive: Presumptive evidence of HBV. Repeatedly reactive samples must be confirmed using a neutralization test ([employer] HBsAg Confirmatory Test) Non-Reactive: HBsAg not detected; does not exclude the possibility of exposure to HBV Performed By: #### B TS, L509.4006, L3890.6102, L3890.6006, L509.8002, L900.0098, L3890.6301, L100.0100 ####[facility] [address] [place], [place], [address] L509.4006on 10-26-2024 Rubella IgG REAC Normal Nonreactive [facility] Comment on above: Result Comment: Anti body Result: Interpretation Non-Reactive: Non-Immune Reactive: Immune The following results were obtained with the [employer] Rubella IgG assay. Results from assays of other manufacturers cannot be used interchangeably. Performed By: #### B TS, L509.4006, L3890.6102, L3890.6006, L509.8002, L900.0098, L3890.6301, L100.0100 ####[facility] [address] [facility]. [place], [place], [address] Laboratory - Microbiology an d Antimicrobial susceptibilityOrdered By: Nneka Salcido on 10-26-2024 HBV surface Ag Ql (S) Non-Reactive Nonreactive [facility] Comment on above: Reactive: Presumptiv e evidence of HBV. Repeatedly reactive samples must be confirmed using a neutralization test ([employer] HBsAg Confirmatory Test)Non-Reactive: HBsAg not detected; does not exclude the possibility of exposure to HBV MCV (mean corpuscular volume ) determinationOrdered By: Nneka Salcido on 10-26-2024 MCV (RBC) [Entitic vol] 89.3 fL 81-99 [facility] Mean corpuscular hemoglobin (MCH) determinationOrdered By: Nneka Salcido on 10-26-2024 MCH (RBC) [Entitic mass] 29.3 pg 27.0-32.0 [facility] Mean corpuscular hemoglobin concentration (MCHC) determinationOrdered By: Nneka Salcido on 10-26-2024 MCHC (RBC) [Mass/Vol] 32.8 g/dL 32-36 [facility] Mean platelet volume determi nationOrdered By: Nneka Salcido on 10-26-2024 Platelet mean volume (Bld) [Entitic vol] 9.3 fL 6.2-12.0 [facility] Monocyte percentageOrdered B y: Nneka Salcido on 10-26-2024 Monocytes/100 WBC (Bld) 5.5 % 0-10 [facility] NATERAon 10-26-2024 NATURA SEE SCANNED REPORT Normal [facility] Comment on above: Order Comment: Comme nts: NIPT with Gender Performed By: #### B TS, L509.4006, L3890.6102, L3890.6006, L509.8002, L900.0098, L3890.6301, L100.0100 #### [facility] [address] [facility]. [place], [place], [address] Neutrophil percentageOrdered By: Nneka Salcido on 10-26-2024 Neutrophils/100 WBC (Bld) 70.0 % 47-70 [facility] No Panel InformationOrdered By: Nneka Salcido on 10-26-2024 HIV (1&2) Antibody Non-Reactive Nonreactive [facility] Comment on above: Non-ReactiveReactive Repeatedly reactive samples must be confirmed according to CDC recommended confirmatory algorithms. The subresults for either HIVAG or AHIV can be used as an aid in the selection of the confirmation algorithm for reactive samples.Send out specimens with Reactive results to [facility] for confirmation.Order the HIV antibody detection and differentiation: lc#[id number] Nucleated red blood cell per centageOrdered By: Nneka Salcido on 10-26-2024 Nucleated RBC/100 WBC (Bld) [Ratio] 0 % 0-5 [facility] Platelet countOrdered By: Angelo Salcido on 10-26-2024 Platelets (Bld) [#/Vol] 274 10*3/uL 150-450 [facility] RBC Auto (Bld) [#/Vol]Ordere d By: Nneka Salcido on 10-26-2024 RBC (Bld) [#/Vol] 4.57 10*6/uL 4.2-5.4 [facility] Syphilis Antibodieson 2024 Syphilis Abs Non-Reactive Normal Nonreactive [facility] Comment on above: Performed By: #### B TS, L509.4006, L3890.6102, L3890.6006, L509.8002, L900.0098, L3890.6301, L100.0100 ####[facility] [address] [place], [place], [address] Type AND Screenon 10-26-2024 ABO and Rh group Nom (Bld) Blood group O Rh(D) positive Normal [facility] Comment on above: Order Comment: PN Performed By: #### B TS, L509.4006, L3890.6102, L3890.6006, L509.8002, L900.0098, L3890.6301, L100.0100 ####[facility] [address] [place], [place], [address] White blood cell (WBC) count Ordered By: Nneka Salcido on 10-26-2024 WBC (Bld) [#/Vol] 7.2 10*3/uL 4.4-11.0 [facility] Chlamydia/GC BEATRIS aptimaon CHLAMY,NUC ACID Negative Normal Negative [facility] Comment on above: Performed By: #### L 7000.1800, M100.2200 #### [facility] [address] [place], [place], [address] GC BY NUC ACID Negative Normal Negative [facility] Comment on above: Result Comment: Perf ormed at: =G - [facility] [address] [place] [id number] Pattern Checker: Nely Mcduffie MD, Phone: [phone] Performed By: #### L 7000.1800, M100.2200 #### [facility] [address] [place], [address] Urine Cultureon 10-21-2024 [facility] Mixed Gram Positive Organisms Caspar Count 25,000-50,000 MIXC Mixed contaminants. Submit a new specimen if indicated. Normal [facility] Comment on above: Performed By: #### L 7000.1800, M100.2200 #### [facility] [address] [place], [address] Chlamydia trachomatis rRNA d etection by probe and target amplification methodOrdered By: Nneka Salcido on 10-19-2024 C. trachomatis rRNA BEATRIS+probe Ql (Unsp spec) Negative Negative [facility] Neisseria gonorrhoeae nuclei c acid detection by amplified probe techniqueOrdered By: Nneka Salcido on 10-19-2024 N. gonorrhoeae DNA BEATRIS+probe Ql (Unsp spec) Negative Negative [facility] Comment on above: Performed at: =[address] [id number] Director: Nely Mcduffie MD, Phone: [phone] Recreational Assistant Office Visit Reporton 10-19-2024 Recreational Assistant Office Visit Report [facility] [address], [address] [place] [address] OFFICE VISIT Date of Service: 10/19/24 MR#: [id number] Acct: [id number] Name: BARRIE WEBSTER Rep #: [id number] : 1985 Provider: BRODIE Alatorre ams Age/Sex: 39/F Location[place] [facility] [place] [facility] [place] Status: Signed Intake Vital Signs 01/11/22 11:22 10/19/24 08:41 Height 5 ft 5 in 5 ft 5 in Weight: 138 lb BMI 22.9 BP 107/69 Intake Visit Reasons: NOB LMP 08/17 Chief Complaint: New OB Vendor Management Specialist Required: No Is patient in pain?: No Allergies No Known Allergies Allergy (Verified 10/19/24 08:49) Medications ???Medication ???Instructions ???Recorded ???Confirmed ???Type multivitamin no.47-iron fum 27 1 cap PO DAILY Check with primary 03/30/21 10/19/24 History mg-folate no.1 1 mg-dha 300 mg doctor capsule (PNV-DHA) Last Menstrual Period: 08/17/24 [facility] Medical History (Updated 10/19/24 @ 08:49 by Melissa Durand) atony of uterus with hemorrhage Vaginal delivery Low-lying placenta in second trimester Surgical History [place] teeth extracted Family History Grandfather Cancer, Onset Age: 60 Maternal skin cancer Hypertension Maternal Paternal Mother Diabetes Hypertension Grandfather Heart disease Maternal Father Hypertension Grandmother Hypertension Maternal Paternal Social History adopted: No household members: spouse and children housing: house number of children: 1 service: No current occupational status: unemployed current occupation: [employer] pets and animals: Yes (Avoid litterbox) pets and animals: cat(s) and dog(s) history of recent travel: Yes (- September) out of state: Yes out of country: No sexually active: Yes Smoking Status: Never smoker second hand exposure: No alcohol intake: never substance use type: does not use well-balanced diet: daily or most days caffeine: Yes Type: coffee Number of servings: 1 eating out: 1-3 times/week during the past year weight has: increased > 10 lbs what type of physical activity do you participate in: walking, bicycling and other details: strength training frequency: daily duration: 45-60 minutes/day manuel/bahai: Temple seatbelt use: always do you feel safe at home: Yes additional social history: - [employer]- [employer] History 2 Elective abortions 0 Hx Para 1 Spontaneous abortions Hx # Term Pregnancies Ectopic pregnancies Hx # Pregnancies Multiple births # of living children 1 Past Pregnancies Del. Date Name GA/Weeks Outcome Route Bth Weight Gen Labor Lgth Anesthesia Del Locatn Provider FOB 11/27/21 Lisa 41 live - full term 7lbs 9oz Female epidural [facility] Estefany Stoddard Delivery Date: 11/27/21 Last Updated by: Lianet Caceres hemorrhage, atony of uterus HPI NOB LMP 08/17 Details: BARRIE WEBSTER is a 39 year old who presents for New OB visit. OB Visit BRITANY Calculator Estimated Delivery Date Method Current WG Current Estimate 05/24/25 LMP (Certain) 9w 0d Other Estimates 05/25/25 Ultrasound #1 8w 6d Comments: HIV: Urine Culture: Sequential Screen: NIPT Screen: Estimated Due Date: 05/24/25 Expected Delivery Route/Plan Labor Preferences- CB/BF classes: [] labor support person: [] labor intervention preferences: [] pain management options preferred: [] cut cord/dad catch: [] : [] PP control planned: [] discussed possible routes of delivery and associated risks: [] special requests: [] Specific Issue/Plans Covid status: [] Flu vaccine: [] Tdap vaccine: [] Rhogam: [] LARC form signed: [] Problem list reviewed and updated with the most current plan of care details and appropriate orders placed. Relevant counseling for the gestational age provided. Continue routine care and follow up unless otherwise noted in visit notes/problem list details Initial Weight: 138 lb Date -???-???-???-???-?? ?-???-???-???-???-? ??-???-???- EGA Weight BP Urine Prot -???-???-???-???-?? ?-???-???-???-???-? ??-???-???- Glucose FHR FuHt Pres Dilation -???-???-???-???-?? ?-???-???-???-???-? ??-???-???- Effaced St Visit Note 10/19/24 -???-???-???-???-?? ?-???-???-???-???-? ??-???-???- 9w 0d 138 lb (+0 oz) 107/69 -???-???-???-???-?? ?-???-???-???-???-? ??-???-???- 179 -???-???-???-???-?? ?-???-???-???-???-? ??-???-???- KW- CRL cons with dates. Accepts NIPT. Menstrual History Last Menstrual Period: 08/17/24 Reported LMP: definite Normal amount/duration: Yes Frequency in days: 28 (more content not included)... Normal [facility] Urine cultureOrdered By: Pascual Salcido on 10-19-2024 Bacteria identified Cx Nom (U) Positive Abnormal [facility] Absolute lymphocyte counton 11-28-2021 Lymphocytes Auto (Unsp spec) [#/Vol] 1.70 10*3/uL 0.83-4.51 [facility] Work Phone: Basophil percentageon 2021 Basophils/100 WBC (Bld) 0.2 % 0-1 [facility] Work Phone: Eosinophils/100 WBC (Bld) 0.2 % 0-5 [facility] Work Phone: Neutrophils (Bld) [#/Vol] 17.2 10*3/uL 2.0-7.7 [facility] Work Phone: Neutrophils/100 WBC (Bld) 84.6 % 47-70 [facility] Work Phone: WBC (Bld) [#/Vol] 20.4 10*3/uL 4.4-11.0 [facility] Work Phone: Blood erythrocytes count (nu mber/volume)on 11-28-2021 RBC (Bld) [#/Vol] 2.93 10*6/uL 4.2-5.4 [facility] Work Phone: Blood hemoglobin measurement (mass/volume)on 11-28-2021 Hemoglobin (Bld) [Mass/Vol] 9.0 g/dL 12.0-15.0 [facility] Work Phone: Blood lymphocytes/100 leukoc yteson 11-28-2021 Lymphocytes/100 WBC (Bld) 8.3 % 19-41 [facility] Work Phone: Blood monocytes/100 leukocyt eson 11-28-2021 Monocytes/100 WBC (Bld) 6.2 % 0-10 [facility] Work Phone: [phone] Blood platelet mean volumeon 11-28-2021 Platelet mean volume (Bld) [Entitic vol] 9.5 fL 6.2-12.0 [facility] Work Phone: Determination of erythrocyte mean corpuscular volume (MCV)on 11-28-2021 MCV (RBC) [Entitic vol] 94.2 fL 81-99 [facility] Work Phone: [phone] Hematocrit Auto (Bld) [Volum e fraction]on 11-28-2021 Hematocrit (Bld) [Volume fraction] 27.6 % 37-47 [facility] Work Phone: Laboratory - Hematology and Cell countson 11-28-2021 Erythrocyte distribution width (RBC) [Entitic vol] 47.6 fL 35.1-43.9 [facility] Work Phone: [phone] Erythrocyte distribution width (RBC) [Ratio] 14.0 % 11.6-14.6 [facility] Work Phone: [phone] Immature granulocytes/100 WBC (Bld) 0.500 % 0.0-0.9 [facility] Work Phone: [phone] Comment on above: IG% - Immature Granu locytes (promyelocytes, myelocytes and metamyelocytes) > 1% indicates that a LEFT SHIFT is Present. MCH (RBC) [Entitic mass] 30.7 pg 27.0-32.0 [facility] Work Phone: Nucleated RBC/100 WBC (Bld) [Ratio] 0 % 0-5 [facility] Work Phone: [phone] MCHC Auto (RBC) [Mass/Vol]on 11-28-2021 MCHC (RBC) [Mass/Vol] 32.6 g/dL 32-36 [facility] Work Phone: Platelets bldon 11-28-2021 Platelets (Bld) [#/Vol] 223 10*3/uL 150-450 [facility] Work Phone: Laboratory - Chemistry and C hemistry - challengeon 11-25-2021 Glucose Ql (U) Negative [facility] Work Phone: Laboratory - Urinalysison Protein Ql (U) Negative [facility] Work Phone: Laboratory - Chemistry and C hemistry - challengeon 11-18-2021 Glucose Ql (U) Negative [facility] Work Phone: Laboratory - Urinalysison Protein Ql (U) Negative [facility] Work Phone: Laboratory - Chemistry and C hemistry - challengeon 11-11-2021 Glucose Ql (U) Negative [facility] Work Phone: Laboratory - Urinalysison Protein Ql (U) Negative [facility] Work Phone: Laboratory - Chemistry and C hemistry - challengeon 11-04-2021 Glucose Ql (U) Negative [facility] Work Phone: Laboratory - Urinalysison Protein Ql (U) Negative [facility] Work Phone: Laboratory - Chemistry and C hemistry - challengeon 10-28-2021 Glucose Ql (U) Negative [facility] Work Phone: Laboratory - Urinalysison Protein Ql (U) Negative [facility] Work Phone: Laboratory - Chemistry and C hemistry - challengeon 10-14-2021 Glucose Ql (U) Negative [facility] Work Phone: Laboratory - Urinalysison Protein Ql (U) Negative [facility] Work Phone: Laboratory - Chemistry and C hemistry - challengeon 09-30-2021 Glucose Ql (U) Negative [facility] Work Phone: [phone] Laboratory - Urinalysison Protein Ql (U) Negative [facility] Work Phone: Laboratory - Chemistry and C hemistry - challengeon 09-16-2021 Glucose Ql (U) Negative [facility] Work Phone: Laboratory - Urinalysison Protein Ql (U) Negative [facility] Work Phone: Laboratory - Chemistry and C hemistry - challengeon 09-02-2021 Glucose Ql (U) Negative [facility] Work Phone: Laboratory - Urinalysison Protein Ql (U) Negative [facility] Work Phone: Absolute lymphocyte counton 08-25-2021 Lymphocytes Auto (Unsp spec) [#/Vol] 1.61 10*3/uL 0.83-4.51 [facility] Work Phone: Basophil percentageon 2021 Basophils/100 WBC (Bld) 0.3 % 0-1 [facility] Work Phone: Eosinophils/100 WBC (Bld) 3.5 % 0-5 [facility] Work Phone: Neutrophils (Bld) [#/Vol] 9.4 10*3/uL 2.0-7.7 [facility] Work Phone: Neutrophils/100 WBC (Bld) 77.0 % 47-70 [facility] Work Phone: WBC (Bld) [#/Vol] 12.2 10*3/uL 4.4-11.0 [facility] Work Phone: Blood erythrocytes count (nu mber/volume)on 08-25-2021 RBC (Bld) [#/Vol] 3.80 10*6/uL 4.2-5.4 [facility] Work Phone: Blood hemoglobin measurement (mass/volume)on 08-25-2021 Hemoglobin (Bld) [Mass/Vol] 12.5 g/dL 12.0-15.0 [facility] Work Phone: [phone] Blood lymphocytes/100 leukoc yteson 08-25-2021 Lymphocytes/100 WBC (Bld) 13.2 % 19-41 [facility] Work Phone: [phone] Blood monocytes/100 leukocyt eson 08-25-2021 Monocytes/100 WBC (Bld) 5.6 % 0-10 [facility] Work Phone: [phone] Blood platelet mean volumeon 08-25-2021 Platelet mean volume (Bld) [Entitic vol] 9.0 fL 6.2-12.0 [facility] Work Phone: [phone] Determination of erythrocyte mean corpuscular volume (MCV)on 08-25-2021 MCV (RBC) [Entitic vol] 96.8 fL 81-99 [facility] Work Phone: [phone] Gestational diabetes screen 1-hour screen with 50g oral glucose loadon 08-25-2021 Glucose 1 Hr post 50 g glucose PO [Mass/Vol] 102 mg/dL 70-140 [facility] Work Phone: [phone] Hematocrit Auto (Bld) [Volum e fraction]on 08-25-2021 Hematocrit (Bld) [Volume fraction] 36.8 % 37-47 [facility] Work Phone: [phone] Laboratory - Hematology and Cell countson 08-25-2021 Erythrocyte distribution width (RBC) [Entitic vol] 45.1 fL 35.1-43.9 [facility] Work Phone: [phone] Erythrocyte distribution width (RBC) [Ratio] 12.7 % 11.6-14.6 [facility] Work Phone: [phone] Immature granulocytes/100 WBC (Bld) 0.400 % 0.0-0.9 [facility] Work Phone: [phone] Comment on above: IG% - Immature Granu locytes (promyelocytes, myelocytes and metamyelocytes) > 1% indicates that a LEFT SHIFT is Present. MCH (RBC) [Entitic mass] 32.9 pg 27.0-32.0 [facility] Work Phone: Nucleated RBC/100 WBC (Bld) [Ratio] 0 % 0-5 [facility] Work Phone: MCHC Auto (RBC) [Mass/Vol]on 08-25-2021 MCHC (RBC) [Mass/Vol] 34.0 g/dL 32-36 [facility] Work Phone: Platelets bldon 08-25-2021 Platelets (Bld) [#/Vol] 230 10*3/uL 150-450 [facility] Work Phone: Laboratory - Chemistry and C hemistry - challengeon 08-05-2021 Glucose Ql (U) Negative [facility] Work Phone: [phone] Laboratory - Urinalysison Protein Ql (U) Negative [facility] Work Phone: GLUCOSEon 08-04-2021 Glucose [Mass/Vol] 76 mg/dL Normal 74 - 99 [facility] Comment on above: Performed By: #### G SEUN #### [address] [address] LIPID PANEL (CORONARY RISK 2 )on 08-04-2021 Cholesterol [Mass/Vol] 205 mg/dL High 0 - 199 [facility] Comment on above: Result Comment: . AGE DESIRABLE BORDERLINE HIGH HIGH 0-19 Y 0 - 169 170 - 199 >/= 200 20-24 Y 0 - 189 190 - 224 >/= 225 >24 Y 0 - 199 200 - 239 >/= 240 All ranges are based on fasting samples. Specific therapeutic targets will vary based on patient-specific cardiac risk. . Pediatric guidelines reference:Pediatrics 2011, 128(S5). Adult guidelines reference: NCEP ATPIII Guidelines, KAHLIL 2001, 258:2486-97 . Venipuncture immediately after or during the administration of Metamizole may lead to falsely low results. Testing should be performed immediately prior to Metamizole dosing. Performed By: #### L IPID #### [address] [place] [address] Cholesterol in HDL [Mass/Vol] 83.0 mg/dL Normal [facility] Comment on above: Result Comment: . AGE VERY LOW LOW NORMAL HIGH 0-19 Y < 35 < 40 40-45 ---- 20-24 Y ---- < 40 >45 ---- >24 Y ---- < 40 40-60 >60 . Performed By: #### L IPID #### [address] [address] Cholesterol in LDL [Mass/Vol] 99 mg/dL Normal 0 - 99 [facility] Comment on above: Result Comment: . NEAR BORD AGE DESIRABLE OPTIMAL HIGH HIGH VERY HIGH 0-19 Y 0 - 109 --- 110-129 >/= 130 ---- 20-24 Y 0 - 119 --- 120-159 >/= 160 ---- >24 Y 0 - 99 100-129 130-159 160-189 >/=190 . Performed By: #### L IPID #### [address] [address] Cholesterol in VLDL [Mass/Vol] 23 mg/dL Normal 0 - 40 [facility] Comment on above: Performed By: #### L IPID #### [address] [address] Cholesterol.total/Cholest candelaria in HDL [Mass ratio] 2.5 {ratio} Normal [facility] Comment on above: Result Comment: REF VALUES DESIRABLE < 3.4 HIGH RISK > 5.0 Performed By: #### L IPID #### [address] [address] Triglyceride [Mass/Vol] 117 mg/dL Normal 0 - 149 [facility] Comment on above: Result Comment: . AGE DESIRABLE BORDERLINE HIGH HIGH VERY HIGH 0 D-90 D 19 - 174 ---- ---- ---- 91 D- 9 Y 0 - 74 75 - 99 >/= 100 ---- 10-19 Y 0 - 89 90 - 129 >/= 130 ---- 20-24 Y 0 - 114 115 - 149 >/= 150 ---- >24 Y 0 - 149 150 - 199 200- 499 >/= 500 . Venipuncture immediately after or during the administration of Metamizole may lead to falsely low results. Testing should be performed immediately prior to Metamizole dosing. Performed By: #### L IPID #### [facility] [address] [place] [address] Culture, urineon 07-08-2021 Bacteria identified Cx Nom (U) Positive [facility] Work Phone: Laboratory - Chemistry and C hemistry - challengeon 07-08-2021 Glucose Ql (U) Negative [facility] Work Phone: Laboratory - Urinalysison Protein Ql (U) Negative [facility] Work Phone: Laboratory - Chemistry and C hemistry - challengeon 06-10-2021 Glucose Ql (U) Negative [facility] Work Phone: Laboratory - Urinalysison Protein Ql (U) Negative [facility] Work Phone: Culture, urineon 05-13-2021 Bacteria identified Cx Nom (U) Positive [facility] Work Phone: No Panel Information Group B Streptococcus Culture Group B Beta Streptococcus is not isolated. [facility] Work Phone: Vital Signs Date Time Vital Sign Value Performing Clinician Sergio meza 03-13-2025 09:20-0400 Body height 165.1 cm No Primary Care Physician [facility] 03-13-2025 09:20-0400 Body mass index (BMI) [Ratio] 25.8 kg/m2 No Primary Care Physician [facility] 03-13-2025 09:20-0400 Body weight 70.33 kg No Primary Care Physician [facility] 03-13-2025 09:20-0400 Diastolic blood pressure 53 mm[Hg] No Primary Care Physician [facility] 03-13-2025 09:20-0400 Systolic blood pressure 104 mm[Hg] No Primary Care Physician [facility] 02-12-2025 08:43-0400 Body height 165.1 cm No Primary Care Physician [facility] 02-12-2025 08:43-0400 Body mass index (BMI) [Ratio] 25 kg/m2 No Primary Care Physician [facility] 02-12-2025 08:43-0400 Body weight 68.23 kg No Primary Care Physician [facility] 02-12-2025 08:43-0400 Diastolic blood pressure 73 mm[Hg] No Primary Care Physician [facility] 02-12-2025 08:43-0400 Systolic blood pressure 105 mm[Hg] No Primary Care Physician [facility] 01-16-2025 08:47-0400 Body height 165.1 cm No Primary Care Physician [facility] 01-16-2025 08:39-0400 Body mass index (BMI) [Ratio] 24.1 kg/m2 No Primary Care Physician [facility] 01-16-2025 08:39-0400 Body weight 65.91 kg No Primary Care Physician [facility] 01-16-2025 08:39-0400 Diastolic blood pressure 60 mm[Hg] No Primary Care Physician [facility] 01-16-2025 08:39-0400 Systolic blood pressure 98 mm[Hg] No Primary Care Physician [facility] 12-19-2024 09:20-0400 Body height 165.1 cm No Primary Care Physician [facility] 12-19-2024 09:20-0400 Body mass index (BMI) [Ratio] 24 kg/m2 No Primary Care Physician [facility] 12-19-2024 09:20-0400 Body weight 65.54 kg No Primary Care Physician [facility] 12-19-2024 09:20-0400 Diastolic blood pressure 65 mm[Hg] No Primary Care Physician [facility] 12-19-2024 09:20-0400 Systolic blood pressure 98 mm[Hg] No Primary Care Physician [facility] 11-20-2024 12:59-0400 Body height 165.1 cm No Primary Care Physician [facility] 11-20-2024 12:59-0400 Body mass index (BMI) [Ratio] 23.1 kg/m2 No Primary Care Physician [facility] 11-20-2024 12:59-0400 Body weight 63.1 kg No Primary Care Physician [facility] 11-20-2024 12:59-0400 Diastolic blood pressure 56 mm[Hg] No Primary Care Physician [facility] 11-20-2024 12:59-0400 Systolic blood pressure 99 mm[Hg] No Primary Care Physician [facility] 10-19-2024 08:41-0400 Body height 165.1 cm No Primary Care Physician [facility] 10-19-2024 08:41-0400 Body mass index (BMI) [Ratio] 22.9 kg/m2 No Primary Care Physician [facility] 10-19-2024 08:41-0400 Body weight 62.59 kg No Primary Care Physician [facility] 10-19-2024 08:41-0400 Diastolic blood pressure 69 mm[Hg] No Primary Care Physician [facility] 10-19-2024 08:41-0400 Systolic blood pressure 107 mm[Hg] No Primary Care Physician [facility] 11-29-2021 07:25-0400 Body temperature 97.8 [degF] No Primary Care Physician [facility] Work Phone: 11-29-2021 07:25-0400 Diastolic blood pressure 57 mm[Hg] No Primary Care Physician [facility] Work Phone: 11-29-2021 07:25-0400 Heart rate 93 /min No Primary Care Physician [facility] Work Phone: 11-29-2021 07:25-0400 Respiratory rate 18 /min No Primary Care Physician [facility] Work Phone: 11-29-2021 07:25-0400 SaO2% (BldA) [Mass fraction] 99 % No Primary Care Physician [facility] Work Phone: 11-29-2021 07:25-0400 Systolic blood pressure 94 mm[Hg] No Primary Care Physician [facility] Work Phone: 11-26-2021 22:30-0400 Body height 165.1 cm No Primary Care Physician [facility] Work Phone: 11-26-2021 22:30-0400 Body mass index (BMI) [Ratio] 28.8 kg/m2 No Primary Care Physician [facility] Work Phone: 11-26-2021 22:30-0400 Body weight 78.47 kg No Primary Care Physician [facility] Work Phone: 11-25-2021 08:22-0400 Body height 165.1 cm No Primary Care Physician [facility] Work Phone: 11-25-2021 08:21-0400 Body mass index (BMI) [Ratio] 28.8 kg/m2 No Primary Care Physician [facility] Work Phone: 11-25-2021 08:21-0400 Body weight 78.58 kg No Primary Care Physician [facility] Work Phone: 11-25-2021 08:21-0400 Diastolic blood pressure 80 mm[Hg] No Primary Care Physician [facility] Work Phone: 11-25-2021 08:21-0400 Systolic blood pressure 102 mm[Hg] No Primary Care Physician [facility] Work Phone: 11-18-2021 09:04-0400 Body mass index (BMI) [Ratio] 28.3 kg/m2 No Primary Care Physician [facility] Work Phone: 11-18-2021 09:04-0400 Body weight 77.28 kg No Primary Care Physician [facility] Work Phone: 11-18-2021 09:04-0400 Diastolic blood pressure 78 mm[Hg] No Primary Care Physician [facility] Work Phone: 11-18-2021 09:04-0400 Systolic blood pressure 124 mm[Hg] No Primary Care Physician [facility] Work Phone: 11-11-2021 10:56-0400 Body mass index (BMI) [Ratio] 28 kg/m2 No Primary Care Physician [facility] Work Phone: 11-11-2021 10:56-0400 Body weight 76.31 kg No Primary Care Physician [facility] Work Phone: 11-11-2021 10:56-0400 Diastolic blood pressure 88 mm[Hg] No Primary Care Physician [facility] Work Phone: 11-11-2021 10:56-0400 Systolic blood pressure 110 mm[Hg] No Primary Care Physician [facility] Work Phone: 11-04-2021 11:10-0400 Body mass index (BMI) [Ratio] 28.6 kg/m2 No Primary Care Physician [facility] Work Phone: 11-04-2021 11:10-0400 Body weight 78.07 kg No Primary Care Physician [facility] Work Phone: 11-04-2021 11:10-0400 Diastolic blood pressure 82 mm[Hg] No Primary Care Physician [facility] Work Phone: 11-04-2021 11:10-0400 Systolic blood pressure 120 mm[Hg] No Primary Care Physician [facility] Work Phone: 10-28-2021 10:20-0400 Body mass index (BMI) [Ratio] 27.6 kg/m2 No Primary Care Physician [facility] Work Phone: 10-28-2021 10:20-0400 Body weight 75.29 kg No Primary Care Physician [facility] Work Phone: 10-28-2021 10:20-0400 Diastolic blood pressure 82 mm[Hg] No Primary Care Physician [facility] Work Phone: 10-28-2021 10:20-0400 Systolic blood pressure 104 mm[Hg] No Primary Care Physician [facility] Work Phone: 10-28-2021 10:20-0400 Body height 165.1 cm No Primary Care Physician [facility] Work Phone: 10-28-2021 10:20-0400 Body mass index (BMI) [Ratio] 27.6 kg/m2 No Primary Care Physician [facility] Work Phone: 10-28-2021 10:20-0400 Body weight 75.29 kg No Primary Care Physician [facility] Work Phone: 10-28-2021 10:20-0400 Diastolic blood pressure 82 mm[Hg] No Primary Care Physician [facility] Work Phone: 10-28-2021 10:20-0400 Systolic blood pressure 104 mm[Hg] No Primary Care Physician [facility] Work Phone: 10-14-2021 09:19-0400 Body mass index (BMI) [Ratio] 27.5 kg/m2 No Primary Care Physician [facility] Work Phone: 10-14-2021 09:19-0400 Body weight 75.01 kg No Primary Care Physician [facility] Work Phone: 10-14-2021 09:19-0400 Diastolic blood pressure 80 mm[Hg] No Primary Care Physician [facility] Work Phone: 10-14-2021 09:19-0400 Systolic blood pressure 102 mm[Hg] No Primary Care Physician [facility] Work Phone: 10-14-2021 09:19-0400 Body mass index (BMI) [Ratio] 27.5 kg/m2 No Primary Care Physician [facility] Work Phone: 10-14-2021 09:19-0400 Body weight 75.01 kg No Primary Care Physician [facility] Work Phone: 10-14-2021 09:19-0400 Diastolic blood pressure 80 mm[Hg] No Primary Care Physician [facility] Work Phone: 10-14-2021 09:19-0400 Systolic blood pressure 102 mm[Hg] No Primary Care Physician [facility] Work Phone: 09-30-2021 10:59-0400 Body mass index (BMI) [Ratio] 27.1 kg/m2 No Primary Care Physician [facility] Work Phone: 09-30-2021 10:59-0400 Body weight 74.04 kg No Primary Care Physician [facility] Work Phone: 09-30-2021 10:59-0400 Diastolic blood pressure 80 mm[Hg] No Primary Care Physician [facility] Work Phone: 09-30-2021 10:59-0400 Systolic blood pressure 110 mm[Hg] No Primary Care Physician [facility] Work Phone: 09-30-2021 10:59-0400 Body height 165.1 cm No Primary Care Physician [facility] Work Phone: 09-30-2021 10:59-0400 Body mass index (BMI) [Ratio] 27.1 kg/m2 No Primary Care Physician [facility] Work Phone: 09-30-2021 10:59-0400 Body weight 74.04 kg No Primary Care Physician [facility] Work Phone: 09-30-2021 10:59-0400 Diastolic blood pressure 80 mm[Hg] No Primary Care Physician [facility] Work Phone: 09-30-2021 10:59-0400 Systolic blood pressure 110 mm[Hg] No Primary Care Physician [facility] Work Phone: 09-16-2021 08:35-0400 Body mass index (BMI) [Ratio] 26.9 kg/m2 No Primary Care Physician [facility] Work Phone: 09-16-2021 08:35-0400 Body weight 73.53 kg No Primary Care Physician [facility] Work Phone: 09-16-2021 08:35-0400 Diastolic blood pressure 72 mm[Hg] No Primary Care Physician [facility] Work Phone: 09-16-2021 08:35-0400 Systolic blood pressure 100 mm[Hg] No Primary Care Physician [facility] Work Phone: 09-16-2021 08:35-0400 Body mass index (BMI) [Ratio] 26.9 kg/m2 No Primary Care Physician [facility] Work Phone: 09-16-2021 08:35-0400 Body weight 73.53 kg No Primary Care Physician [facility] Work Phone: 09-16-2021 08:35-0400 Diastolic blood pressure 72 mm[Hg] No Primary Care Physician [facility] Work Phone: 09-16-2021 08:35-0400 Systolic blood pressure 100 mm[Hg] No Primary Care Physician [facility] Work Phone: 09-02-2021 09:54-0400 Body mass index (BMI) [Ratio] 26.1 kg/m2 No Primary Care Physician [facility] Work Phone: 09-02-2021 09:54-0400 Body weight 71.27 kg No Primary Care Physician [facility] Work Phone: 09-02-2021 09:54-0400 Diastolic blood pressure 60 mm[Hg] No Primary Care Physician [facility] Work Phone: 09-02-2021 09:54-0400 Systolic blood pressure 108 mm[Hg] No Primary Care Physician [facility] Work Phone: 09-02-2021 09:54-0400 Body height 165.1 cm No Primary Care Physician [facility] Work Phone: 09-02-2021 09:54-0400 Body mass index (BMI) [Ratio] 26.1 kg/m2 No Primary Care Physician [facility] Work Phone: 09-02-2021 09:54-0400 Body weight 71.27 kg No Primary Care Physician [facility] Work Phone: 09-02-2021 09:54-0400 Diastolic blood pressure 60 mm[Hg] No Primary Care Physician [facility] Work Phone: 09-02-2021 09:54-0400 Systolic blood pressure 108 mm[Hg] No Primary Care Physician [facility] Work Phone: 08-05-2021 10:32-0500 Body mass index (BMI) [Ratio] 25.2 kg/m2 No Primary Care Physician [facility] Work Phone: 08-05-2021 10:32-0500 Body weight 68.94 kg No Primary Care Physician [facility] Work Phone: 08-05-2021 10:32-0500 Diastolic blood pressure 72 mm[Hg] No Primary Care Physician [facility] Work Phone: 08-05-2021 10:32-0500 Systolic blood pressure 112 mm[Hg] No Primary Care Physician [facility] [facility] Work Phone: 08-05-2021 09:32-0500 Body mass index (BMI) [Ratio] 25.2 kg/m2 No Primary Care Physician [facility] Work Phone: 08-05-2021 09:32-0500 Body weight 68.94 kg No Primary Care Physician [facility] Work Phone: 08-05-2021 09:32-0500 Diastolic blood pressure 72 mm[Hg] No Primary Care Physician [facility] Work Phone: 08-05-2021 09:32-0500 Systolic blood pressure 112 mm[Hg] No Primary Care Physician [facility] Work Phone: 07-08-2021 08:10-0500 Body mass index (BMI) [Ratio] 23.3 kg/m2 No Primary Care Physician [facility] Work Phone: 07-08-2021 08:10-0500 Body weight 63.72 kg No Primary Care Physician [facility] Work Phone: 07-08-2021 08:10-0500 Diastolic blood pressure 70 mm[Hg] No Primary Care Physician [facility] Work Phone: 07-08-2021 08:10-0500 Systolic blood pressure 110 mm[Hg] No Primary Care Physician [facility] Work Phone: 06-10-2021 10:11-0500 Body mass index (BMI) [Ratio] 22.6 kg/m2 No Primary Care Physician [facility] Work Phone: 06-10-2021 10:11-0500 Body weight 61.68 kg No Primary Care Physician [facility] Work Phone: 06-10-2021 10:11-0500 Diastolic blood pressure 74 mm[Hg] No Primary Care Physician [facility] Work Phone: 06-10-2021 10:11-0500 Systolic blood pressure 120 mm[Hg] No Primary Care Physician [facility] Work Phone: 05-13-2021 09:18-0500 Body mass index (BMI) [Ratio] 22.1 kg/m2 No Primary Care Physician [facility] Work Phone: 05-13-2021 09:18-0500 Body weight 60.32 kg No Primary Care Physician [facility] Work Phone: 05-13-2021 09:18-0500 Diastolic blood pressure 80 mm[Hg] No Primary Care Physician [facility] Work Phone: 05-13-2021 09:18-0500 Systolic blood pressure 112 mm[Hg] No Primary Care Physician [facility] Work Phone: Encounters Encounter Date Encounter Type Care Provider Facility Start: 04-26-2025 ambulatory Manasa Sommer Fa cility:[facility] Start: 04-09-2025 End: 04-09-2025 ambulatory Nneka Salcido [place] Start: 03-27-2025 End: 03-27-2025 ambulatory Manasa Sommer Facility:[facility] Start: 03-13-2025 End: 03-13-[address] Calista Davis MD [facility] Work Phone: Start: 03-13-2025 End: 03-13-2025 ambulatory No Primary Care Physician -[facility] Start: 02-12-2025 End: 02-12-2025 Patient encounter procedure Nneka BENITEZ -[facility] Work Phone: Start: 02-12-2025 End: 02-12-2025 ambulatory No Primary Care Physician -[facility] Start: 02-12-2025 End: 02-12-2025 ambulatory Manasa Sommer Facility:[facility] Start: 01-16-2025 End: 01-16-2025 Patient encounter procedure Winter YANG -[facility] Work Phone: Start: 01-16-2025 End: 01-16-2025 ambulatory No Primary Care Physician -[facility] Start: 01-10-2025 End: 01-10-2025 ambulatory MD NO PRIMARY CARE [facility] Start: 12-27-2024 End: 12-27-2024 ambulatory MD NO PRIMARY CARE [facility] Start: 12-19-2024 End: 12-19-[address] Manasa Sommer DO -[facility] Work Phone: Start: 12-19-2024 End: 12-19-2024 ambulatory No Primary Care Physician -[facility] Start: 11-20-2024 End: 11-20-[address] Calista Davis MD -[facility] Work Phone: Start: 11-20-2024 End: 11-20-2024 ambulatory No Primary Care Physician [facility] Work Phone: Start: 10-26-2024 End: 10-26-2024 ambulatory No Primary Care Physician [facility] Work Phone: Start: 10-26-2024 End: 10-26-[address] Manasa Sommer DO [facility] Start: 10-26-2024 End: 10-26-2024 ambulatory No Primary Care Physician Facility:[facility] Start: 10-19-2024 End: 10-19-2024 Patient encounter procedure Nneka Salcido CNM -[facility] Work Phone: Start: 10-19-2024 End: 10-19-2024 ambulatory No Primary Care Physician [facility] Work Phone: Start: 10-19-2024 End: 10-19-2024 ambulatory Nneka Salcido Facility:[facility] Start: 11-29-2021 Non-patient / Non-visit No Primary Care Physician [facility] Start: 11-28-2021 Non-patient / Non-visit No Primary Care Physician [facility] Start: 11-27-2021 Non-patient / Non-visit No Primary Care Physician [facility] Start: 11-26-2021 End: 11-29-2021 Evaluation and management of inpatient No Primary Care Physician [facility] Start: 11-26-2021 Non-patient / Non-visit No Primary Care Physician [facility] Start: 11-25-2021 End: 11-25-2021 Patient encounter procedure No Primary Care Physician [facility] Start: 11-18-2021 End: 11-18-2021 Patient encounter procedure No Primary Care Physician [facility] Start: 11-11-2021 End: 11-11-2021 Patient encounter procedure No Primary Care Physician [facility] Start: 11-04-2021 End: 11-04-2021 Patient encounter procedure No Primary Care Physician [facility] Start: 10-28-2021 End: 10-28-2021 Patient encounter procedure No Primary Care Physician [facility]Laboratory, Specimen Start: 10-28-2021 End: 10-28-2021 Patient encounter procedure No Primary Care Physician [facility] Start: 10-27-2021 End: 10-27-2021 Patient encounter procedure No Primary Care Physician [facility] Ultrasound Start: 10-14-2021 End: 10-14-2021 Patient encounter procedure No Primary Care Physician [facility] Start: 09-30-2021 End: 09-30-2021 Patient encounter procedure No Primary Care Physician [facility] Start: 09-28-2021 End: 09-28-2021 Patient encounter procedure No Primary Care Physician [facility] Ultrasound Start: 09-16-2021 End: 09-16-2021 Patient encounter procedure No Primary Care Physician [facility] Start: 09-02-2021 End: 09-02-2021 Patient encounter procedure No Primary Care Physician [facility] Start: 08-25-2021 End: 08-25-2021 Patient encounter procedure No Primary Care Physician [facility] Pavilion Start: 08-05-2021 End: 08-05-2021 Patient encounter procedure No Primary Care Physician [facility] Start: 07-08-2021 Patient encounter procedure No Primary Care Physician [facility] Spec[facility] Start: 07-08-2021 End: 07-08-2021 Patient encounter procedure No Primary Care Physician [facility] Start: 06-10-2021 End: 06-10-2021 Patient encounter procedure No Primary Care Physician [facility] Start: 05-13-2021 Patient encounter procedure No Primary Care Physician [facility] Spec[facility] Start: 05-13-2021 End: 05-13-2021 Patient encounter procedure No Primary Care Physician [facility] Start: 06-07-2017 Ambulatory Ky Manzanares Facility:[place] Start: 06-07-2017 End: 06-07-2017 Ambulatory Ky Manzanares Work Phone: [facility] Start: 06-03-2017 Ambulatory Phong Tipton Facili ty:[place] Start: 06-02-2017 Ambulatory Vane D Marshall Facili ty:[place] Start: 06-02-2017 End: 06-02-2017 Ambulatory Vane Marshall Work Phone: [facility] Start: 04-25-2017 Ambulatory Vane D Marshall Facili ty:[place] Start: 03-11-2017 Ambulatory Vane D Marshall Facili ty:[place] Start: 03-11-2017 End: 03-11-2017 Patient encounter procedure Vane Marshall Work Phone: [facility] Start: 02-14-2017 Ambulatory Vane D Marshall Facili ty:[place] Start: 02-14-2017 End: 02-14-2017 Ambulatory Vane Marshall Work Phone: [facility] Procedures Date Procedure Procedure Detail Performing Clinician Start: 02-12-2025 Serologic test for syphilis No Primary Care Physician Start: 10-26-2024 Hepatitis C antibody measurement No Primary Care Physician Comment on above: Reactive: Presumptiv e evidence of antibodies to HCV. Follow CDC recommendations for supplemental testing.Non-Reactive: Antibodies to HCV were not detected; does not exclude the possibility of exposure to HCVReactive Results are presumptive evidence of antibodies to HCV. Follow CDC recommendations for supplemental testing.Order confirmation testing: HCV Quant by PCR testing - HCVPCR #[id number] Non Reactive: < 0.8 Equivocal: >/= 0.8 to < 1.0 Reactive: >/= 1.0The CDC requires that a reactive/equivocal HCV antibody result be sent out for confirmation. HCV Quant by PCR testing. Start: 10-26-2024 Procedure No Primary Care Physician Start: 10-26-2024 Rubella IgG measurement No Primary Care Physician Comment on above: Antibody Result: Int erpretationNon-Reactive: Non- ImmuneReactive: ImmuneThe following results were obtained with the [employer] Rubella IgG assay. Results from assays of other manufacturers cannot be used interchangeably. Start: 10-26-2024 Serologic test for syphilis No Primary Care Physician Start: 10-19-2024 Urine culture No Primar y Care Physician Start: 10-27-2021 Ultrasound scan for growth No Primary Care Physician Start: 09-28-2021 Ultrasound scan for growth No Primary Care Physician Start: 07-08-2021 Urine culture No Primar y Care Physician Start: 05-13-2021 Urine culture No Primar y Care Physician Group B Streptococcu s Culture No Primary Care Physician Viral antigen assay No Prima ry Care Physician Plan of Treatment Date Care Activity Detail Author Start: 02-12-2025 CBC W Auto Differential panel - Blood [facility] Start: 02-12-2025 Measurement of glucose 2 hours after glucose challenge for glucose tolerance test [facility] Start: 02-12-2025 Serologic test for syphilis [facility] Start: 02-12-2025 [facility] Start: 11-29-2021 Patient discharge [facility] Work Phone: Start: 11-27-2021 Administration of medication [facility] Work Phone: Start: 11-27-2021 Application of ice collar, cap or bag [facility] Work Phone: Start: 11-27-[address] [facility] Work Phone: Start: 11-27-2021 Introduction of urinary catheter [facility] Work Phone: Start: 11-27-2021 Measuring intake and output [facility] Work Phone: Start: 11-27-2021 Notification of physician [facility] Work Phone: Start: 11-27-2021 Procedure discontinued [facility] Work Phone: Start: 11-27-2021 Provision of activity privileges [facility] Work Phone: Start: 11-27-2021 Vital signs measurements [facility] Work Phone: Start: 11-27-2021 [facility] Work Phone: Start: 11-26-2021 Admission procedure [facility] Work Phone: Start: 10-28-2021 Group B Streptococcus Culture Group B Streptococcus Culture [facility] Work Phone: Start: 06-07-2017 Ambulatory 06/07/2017 Hospital Encounter Ky Manzanares MD [address] [place] [address] [phone] [facility] Start: 06-02-2017 Ambulatory 06/02/2017 Hospital Encounter Vane Marshall CNP [address] [place] [address] [phone] [facility] Start: 03-11-2017 Ambulatory 03/11/2017 Hospital Encounter Vane Marshall CNP [address] [place] [address] [phone] [facility] CBC W Auto Different ial panel - Blood [facility] Work Phone: CBC W Auto Different ial panel - Blood [facility] Erythrocyte mean corpuscular volume determination [facility] Glucose [Mass/volume ] in Serum or Plasma --1 hour post 50 g glucose PO [facility] Work Phone: Hematocrit [Volume Fraction] of Blood [facility] Hemoglobin [Mass/vol ume] in Blood [facility] Hepatitis C antibody measurement [facility] Leukocytes [#/volume ] in Blood [facility] Mean corpuscular hemoglobin concentration determination [facility] Mean corpuscular hemoglobin determination [facility] Neutrophil count [facility] Neutrophil percent differential count [facility] Patient Education After a Vaginal [facility] Work Phone: Patient referral [facility] Work Phone: Platelets [#/volume] in Blood [facility] Procedure [facility] Red blood cell count [facility] Red cell distributio n width determination [facility] Rubella IgG measurement [facility] Serologic test for syphilis [facility] Immunizations Immunization Date Immunization Notes Care Provider [facility] 03-13-2025 tetanus toxoid, redu alberto diphtheria toxoid, and acellular pertussis vaccine, adsorbed No Primary Care Physician [facility] 10-14-2021 tetanus toxoid, redu alberto diphtheria toxoid, and acellular pertussis vaccine, adsorbed No Primary Care Physician [facility] 10-14-2021 diphtheria, tetanus toxoids and acellular pertussis vaccine, unspecified formulation No Primary Care Physician [facility] Work Phone: Payers Date Payer Category Payer Unknown [id number] 2024 Self-pay [id number] 2024 Unknown [id number] 1985 Unknown [id number] 1985 Unknown [id number] .. [id number] Self-pay [id number] Self-pay [id number] Unknown [id number] Unknown [id number] 2.16.8 [id number] Unknown [id number] 2.16.8 [id number] Unknown [id number] 2.16.8 [id number] Unknown [id number] 2.16.8 [id number] Unknown [id number] 2.16.8 [id number] Unknown [id number] 2.16.8 [id number] Unknown [id number] 2.16.8 [id number] Unknown [id number] 2.16.8 [id number] Unknown [id number] 2.16.8 [id number] Unknown [id number] 2.16.8 [id number] Unknown [id number] 2.16.8 [id number] Unknown [id number] 2.16.8 [id number] Social History Date Type Detail Facility Start: 02-15-2017 End: 11-26-2021 Tobacco smoking status NHIS Unknown if ever smoked [facility] Work Phone: Sex Assigned At Not on file [facility] Work Phone: Start: 1985 Sex Assigned At Female [facility] Start: 10-04-2024 Tobacco smoking stat us NHIS Never smoked tobacco (finding) [facility] Sex Female [facility] Goals Date Patient Goal Desired Activity /State Mental Status Date Assessment Result Facility 11-28-2021 Cognitive function Level Of Cons ciousness Awake;Alert;Appropriate;Follow s Commands [facility] Work Phone: Clinical Notes 10-19-2024 to 03-13-2025 Note Date & Type Note Facility 03-13-2025 Progress note [facility] 02-12-2025 Progress note [facility] 12-19-2024 Evaluation note Diagnosis Onset Date Resolution AMA (advanced maternal age) multigravida 35+ acute December 19, 2024 9:13am History of atony of uterus acute December 19, 2024 9:13am acute December 19 9:13am Supervision of normal acute December 19, 2024 9:13am AMA (advanced maternal age) multigravida 35+ acute December 8:37am History of atony of uterus acute January 16 8:37am acute January 16 8:37am Supervision of normal acute January 16 8:37am AMA (advanced maternal age) multigravida 35+ acute February 12, 2025 8:36am History of atony of uterus acute February 12, 2025 8:36am acute January 8:36am Supervision of normal acute February 12, 2025 8:36am AMA (advanced maternal age) multigravida 35+ acute March 132024 9:18am History of atony of uterus acute March 13 9:18am acute March 13, 2025 9:18am Supervision of normal acute March 13 9:18am [facility] Work Phone: 1(526) 315-237907-23-2025 Progress [facility] [address] [place] [address], [address] [place] [address] OFFICE VISIT Date of Service: 12/19/24 MR#: [id number] Acct: [id number] Name: BARRIE WEBSTER Rep #: [id number] : 1985 Provider: Dr. Snow Sommer DO Age/Sex: 39/F Location[place] [facility] [place] [facility] [place] Status: Signed Intake Vital Signs 10/19/24 08:41 11/20/24 12:59 12/19/24 09:20 Height 5 ft 5 in 5 ft 5 in 5 ft 5 in Weight: 144 lb 8 oz BMI 24.0 BP 98/65 Intake Visit Reasons: 18wk ob Vendor Management Specialist Required: No Is patient in pain?: No Allergies No Known Allergies Allergy (Verified 12/19/24 09:21) Medications ?Medication ?Instructions ?Recorded ?Confirmed ?Type multivitamin no.47-iron fum 27 1 cap PO DAILY Check wi th primary 03/30/21 12/19/24 History mg-folate no.1 1 mg-dha 300 mg doctor capsule (PNV-DHA) Last Menstrual Period: 08/17/24 Zika: Zika virus screening: Negative : No PFSH PFSH Medical History atony of uterus with hemorrhage Vaginal delivery Low-lying placenta in second trimester Surgical History [place] teeth extracted Family History Grandfather Cancer, Onset Age: 60 Maternal skin cancer Hypertension Maternal & Paternal Mother Diabetes Hypertension Grandfather Heart disease Maternal Father Hypertension Grandmother Hypertension Maternal & Paternal Social History adopted: No household members: spouse and children housing: house number of children: 1 current occupational status: unemployed current occupation: [employer] pets and animals: Yes (Avoid litterbox) pets and animals: cat(s) and dog(s) history of recent travel: Yes (- September) out of state: Yes out of country: No sexually active: Yes Smoking Status: Never smoker second hand exposure: No alcohol intake: never substance use type: does not use well-balanced diet: daily or most days caffeine: Yes Type: coffee Number of servings: 1 eating out: 1-3 times/week during the past year weight has: increased > 10 lbs what type of physical activity do you participate in: walking, bicycling and other details: strength training frequency: daily duration: 45-60 minutes/day manuel/bahai: Temple seatbelt use: always do you feel safe at home: Yes additional social history: - Richi- [employer] History 2 Elective abortions 0 Hx Para 1 Spontaneous abortions Hx # Term Pregnancies Ectopic pregnancies Hx # Pregnancies Multiple births # of living children 1 Past Pregnancies Del. Date Name GA/Weeks Outcome Route Bth Weight Gen Labor Lgth Anesthesia Del Locatn Provider FOB 11/27/21 Lisa 41 live - full term 7lbs 9oz Female ep idural [facility] Dr. Krystal Stoddard Delivery Date: 11/27/21 Last Updated by: Lianet Caceres hemorrhage, atony of uterus HPI 18wk ob Details: BARRIE WEBSTER is a 39 year old who presents for routine OB visit. OB Visit BRITANY Calculator Estimated Delivery Date Method Current WG Current Estimate 05/24/25 LMP (Certain) 17w 5d Other Estimates 05/25/25 Ultrasound #1 17w 4d Expected Delivery Route/Plan Labor Preferences- CB/BF classes: [] labor support person: [] labor intervention preferences: [] pain management options preferred: [] cut cord/dad catch: [] : [] PP control planned: [] discussed possible routes of delivery and associated risks: [] special requests: [] Specific Issue/Plans Covid status: [] Flu vaccine: [] Tdap vaccine: [] Rhogam: [] LARC form signed: [] Problem list reviewed and updated with the most current plan of care details and appropriate ordersplaced. Relevant counseling for the gestational age provided. Continue routine care and follow up unless otherwise noted in visit notes/problem list details Initial Weight: 138 lb Date -?-?-?-?-?-?-?-?-?-?-?-?- EGA Weight BP Urine Prot -?-?-?-?-?-?-?-?-?-?-?-?- Glucose FHR FuHt Pres Dilation -?-?-?-?-?-?-?-?-?-?-?-?- Effaced St Visit Note 10/19/24 -?-?-?-?-?-?-?-?-?-?-?-?- 9w 0d 138 lb (+0 oz) 107/69 -?-?-?-?-?-?-?-?-?-?-?-?- 179 -?-?-?-?-?-?-?-?-?-?-?-?- KW- CRL cons wit h dates. Accepts NIPT. 11/20/24 -?-?-?-?-?-?-?-?-?-?-?-?- 13w 4d 139 lb 2 oz (+1 lb 2 oz) 99/56 Negative -?-?-?-?-?-?-?-?-?-?-?-?- Negative 150 -?-?-?-?-?-?-?-?-?-?-?-?- SM- no vb crampi ng 12/19/24 -?-?-?-?-?-?-?-?-?-?-?--?- 17w 5d 144 lb 8 oz (+6 lb 8 oz) 98/65 -?-?-?-?-?-?-?-?-?-?-?-?- 161 -?-?-?-?-?-?-?-?-?-?-?-?- JV- no lof, vagi nal bleeding, or dec fm. has anatomy scan on 12/27 ACOG First Trimester First Trimester: Desire for , Alcohol, Tobacco Cessation, Illicit/Recreational Drug/Substance Use, Intimate Partner Violence, Barriers to care, Unstable Housing, Communication Barriers, Environmental/Work Hazards, Anticipated Course of Care, Toxoplasmosis Precations, Use of Any med ications, Sexual activity, Exercise, Dental Care, Sauna/Hot tub use, Seat Belt use, Childbirth classes/Hospital facilities, Travel, Indications for Ultrasound and Screening for Aneuploidy; Discussed Second Trimester Second Trimester: Signs and Symptoms of Labor, Selecting a care provider, Reproductive Life Planning & Contreception, Care Planning, Depression/Anxiety and Intimate Partner Violence; Discussed Tobacco Cessation Third Trimester Third Trimester: Pain Management Plans, Labor support person(s), Immediate Larc, Signs and Symptoms of Preeclampsia, Feeding No and Family Medical Leave or Disability Forms Coding Level of Care Code OB Routine Diagnoses AMA (advanced maternal age) multigravida 35+ O09.529 Supervision of normal Z34.90 History of atony of uterus Z87.59 17 weeks gestation of Z3A.17 Weeks of gestation: 17 weeks Assessment and Plan Assessment and Plan (1) AMA (advanced maternal age) multigravida 35+: Status: Acute Comment: growth at 36 weeks. deliver 39 weeks (2) Supervision of normal : Status: Acute Comment: PRR, , BRITANY 05/24/25 girl PC Lisa, Richi (3) History of atony of uterus: Status: Acute Comment: with hemorrhage (4) : Status: Acute Qualifiers: Weeks of gestation: 17 weeks Qualified Code(s): Z3A.17 - 17 weeks gestation of Comment: NIPt low risk, previous Carrier Neg. Orders: Orders POC Urinalysis 2 Dip (Clinic) Today 12/19/24 0948 e David DO> Date _ Manasa Sommer DO Cosignspencer Signature: Date (if applicable) CC: ~ [facility]06-24-2025 Evaluation note* Diagnosis Onset Date Resolution Status Admit Date AMA (advanced maternal age) multigravida 35+ acute November 20, 2024 12:50pm History of atony of uterus acute November 20, 2024 12:50pm acute November 20 12:50pm Supervision of normal acute November 20, 2024 12:50pm AMA (advanced maternal age) multigravida 35+ acute December 19, 2024 9:13am History of atony of uterus acute December 19, 2024 9:13am acute December 19 9:13am Supervision of normal acute December 19, 2024 9:13am AMA (advanced maternal age) multigravida 35+ acute January 16 8:37am History of atony of uterus acute January 16 8:37am acute January 16, 8:37am Supervision of normal acute [place] 20th, 202 5 8:37am AMA (advanced maternal age) multigravida 35+ acute February 12, 2025 8:36am History of atony of uterus acute February 12, 2025 8:36am acute January 8:36am Supervision of normal acute February 12, 2025 8:36am [facility] Work Phone: 1(568) 777-584806-24-2025 Progress [facility] [address], [address] [place] [address] OFFICE VISIT Date of Service: 11/20/24 MR#: [id number] Acct: [id number] Name: BARRIE WEBSTER Rep #: [id number] : 1985 Provider: Dr. Balbir Davis MD Age/Sex: 39/F Location: [facility] – [facility] [place] Status: Signed Intake Vital Signs 01/11/22 11:22 10/19/24 08:41 11/20/24 12:59 Height 5 ft 5 in 5 ft 5 in 5 ft 5 in Weight: 139 lb 2 oz BMI 23.1 BP 99/56 L Intake Visit Reasons: 13wk OB Vendor Management Specialist Required: No Is patient in pain?: No Allergies No Known Allergies Allergy (Verified 11/20/24 13:01) Medications ?Medication ?Instructions ?Recorded ?Confirmed ?Type multivitamin no.47-iron fum 27 1 cap PO DAILY Check wi th primary 03/30/21 11/20/24 History mg-folate no.1 1 mg-dha 300 mg doctor capsule (PNV-DHA) Last Menstrual Period: 08/17/24 Zika: Zika virus screening: Negative : No PFSH PFSH Medical History atony of uterus with hemorrhage Vaginal delivery Low-lying placenta in second trimester Surgical History [place] teeth extracted Family History Grandfather Cancer, Onset Age: 60 Maternal skin cancer Hypertension Maternal & Paternal Mother Diabetes Hypertension Grandfather Heart disease Maternal Father Hypertension Grandmother Hypertension Maternal & Paternal Social History adopted: No household members: spouse and children housing: house number of children: 1 current occupational status: unemployed current occupation: [employer] pets and animals: Yes (Avoid litterbox) pets and animals: cat(s) and dog(s) history of recent travel: Yes (- September) out of state: Yes out of country: No sexually active: Yes Smoking Status: Never smoker second hand exposure: No alcohol intake: never substance use type: does not use well-balanced diet: daily or most days caffeine: Yes Type: coffee Number of servings: 1 eating out: 1-3 times/week during the past year weight has: increased > 10 lbs what type of physical activity do you participate in: walking, bicycling and other details: strength training frequency: daily duration: 45-60 minutes/day manuel/bahai: Temple seatbelt use: always do you feel safe at home: Yes additional social history: - Richi- [employer] History 2 Elective abortions 0 Hx Para 1 Spontaneous abortions Hx # Term Pregnancies Ectopic pregnancies Hx # Pregnancies Multiple births # of living children 1 Past Pregnancies Del. Date Name GA/Weeks Outcome Route Bth Weight Gen Labor Lgth Anesthesia Del Locatn Provider FOB 11/27/21 Lisa 41 live - full term 7lbs 9oz Female ep idural [facility] Dr. Krystal Stoddard Delivery Date: 11/27/21 Last Updated by: Lianet Caceres hemorrhage, atony of uterus HPI 13wk OB Details: BARRIE WEBSTER is a 39 year old who presents for routine OB visit. OB Visit BRITANY Calculator Estimated Delivery Date Method Current WG Current Estimate 05/24/25 LMP (Certain) 13w 4d Other Estimates 05/25/25 Ultrasound #1 13w 3d Expected Delivery Route/Plan Labor Preferences- CB/BF classes: [] labor support person: [] labor intervention preferences: [] pain management options preferred: [] cut cord/dad catch: [] : [] PP control planned: [] discussed possible routes of delivery and associated risks: [] special requests: [] Specific Issue/Plans Covid status: [] Flu vaccine: [] Tdap vaccine: [] Rhogam: [] LARC form signed: [] Problem list reviewed and updated with the most current plan of care details and appropriate ordersplaced. Relevant counseling for the gestational age provided. Continue routine care and follow up unless otherwise noted in visit notes/problem list details Initial Weight: 138 lb Date -?-?-?-?-?-?-?-?-?-?-?-?- EGA Weight BP Urine Prot -?-?-?-?-?-?-?-?-?-?-?-?- Glucose FHR FuHt Pres Dilation -?-?-?-?-?-?-?-?-?-?-?-?- Effaced St Visit Note 10/19/24 -?-?-?-?-?-?-?-?-?-?-?-?- 9w 0d 138 lb (+0 oz) 107/69 -?-?-?-?-?-?-?-?-?-?-?-?- 179 -?-?-?-?-?-?-?-?-?-?-?-?- KW- CRL cons wit h dates. Accepts NIPT. 11/20/24 -?-?-?-?-?-?-?-?-?-?-?-?- 13w 4d 139 lb 2 oz (+1 lb 2 oz) 99/56 Negative -?-?-?-?-?-?-?-?-?-?-?-?- Negative 150 -?-?-?-?-?-?-?-?-?-?-?-?- SM- no vb crampi ng ACOG First Trimester First Trimester: Desire for , Alcohol, Tobacco Cessation, Illicit/Recreational Drug/Substance Use, Intimate Partner Violence, Barriers to care, Unstable Housing, Communication Barriers, Environmental/Work Hazards, Anticipated Course of Care, Toxoplasmosis Precations, Use of Any med ications, Sexual activity, Exercise, Dental Care, Sauna/Hot tub use, Seat Belt use, Childbirth classes/Hospital facilities, Travel, Indications for Ultrasound and Screening for Aneuploidy; Discussed Second Trimester Second Trimester: Signs and Symptoms of Labor, Selecting a care provider, Reproductive Life Planning & Contreception, Care Planning, Depression/Anxiety and Intimate Partner Violence; Discussed Tobacco Cessation Third Trimester Third Trimester: Pain Management Plans, Labor support person(s), Immediate Larc, Signs and Symptoms of Preeclampsia, Infant Feeding No and Family Medical Leave or Disability Forms Results POC Urinalysis 2 Dip (Clinic) Office Urine Glucose Negative Last Edit by Winter Goode on 11/20/24 13:06 Office Urine Protein Negative Last Edit by Winter Goode on 11/20/24 13:06 Coding Level of Care Code OB Routine Diagnoses AMA (advanced maternal age) multigravida 35+ O09.529 Supervision of normal Z34.90 History of atony of uterus Z87.59 13 weeks gestation of Z3A.13 Weeks of gestation: 13 weeks Assessment and Plan Assessment and Plan (1) AMA (advanced maternal age) multigravida 35+: Status: Acute Comment: growth at 36 weeks. deliver 39 weeks (2) Supervision of normal : Status: Acute Comment: PRR, , BRITANY 05/24/25 girl PC Lisa, Richi (3) History of atony of uterus: Status: Acute Comment: with hemorrhage (4) : Status: Acute Qualifiers: Weeks of gestation: 13 weeks Qualified Code(s): Z3A.13 - 13 weeks gestation of Comment: NIPt low risk, previous Carrier Neg. Orders: Orders POC Urinalysis 2 Dip (Clinic) Today 11/20/24 1316 tobi DUNLAP> Date _ Calista Davis MD Cosign Signature: Date (if applicable) CC: ~ [facility]05-23-2025 Evaluation note* Diagnosis Onset Date Resolution Status Admit Date AMA (advanced maternal age) multigravida 35+ acute October 19, 2024 8:39am History of atony of uterus acute October 19, 2024 8 :39am acute October 19, 2024 8:39am Supervision of normal acut e October 19, 2024 8:39am [facility] Work Phone: 1(461) 785-900005-23-2025 Evaluation note* Diagnosis Onset Date Resolution Status Admit Date AMA (advanced maternal age) multigravida 35+ acute October 19, 2024 8:39am History of atony of uterus acute October 19, 2024 8 :39am acute October 19, 2024 8:39am Supervision of normal acut e October 19, 2024 8:39am AMA (advanced maternal age) multigravida 35+ acute November 20, 2024 12:50pm History of atony of uterus acute November 20, 2024 12:50pm acute November 20 12:50pm Supervision of normal acut e November 20, 2024 12:50pm [facility] Work Phone: 1(338) 739-780105-23-2025 Evaluation note* Diagnosis Onset Date Resolution Status Admit Date AMA (advanced maternal age) multigravida 35+ acute October 19, 2024 8:39am History of atony of uterus acute October 19, 2024 8 :39am acute October 19, 2024 8:39am Supervision of normal acut e October 19, 2024 8:39am AMA (advanced maternal age) multigravida 35+ acute November 20, 2024 12:50pm History of atony of uterus acute November 20, 2024 12:50pm acute November 20 12:50pm Supervision of normal acut e November 20, 2024 12:50pm AMA (advanced maternal age) multigravida 35+ acute December 19, 2024 9:13am History of atony of uterus acute December 19, 2024 9:13am acute December 19 9:13am Supervision of normal acut e December 19, 2024 9:13am [facility] Work Phone: 1(215) 487-715205-23-2025 Evaluation note* Diagnosis Onset Date Resolution Status Admit Date AMA (advanced maternal age) multigravida 35+ acute October 19, 2024 8:39am History of atony of uterus acute October 19, 2024 8 :39am acute October 19, 2024 8:39am Supervision of normal acut e October 19, 2024 8:39am AMA (advanced maternal age) multigravida 35+ acute November 20, 2024 12:50pm History of atony of uterus acute November 20, 2024 12:50pm acute November 20 12:50pm Supervision of normal acut e November 20, 2024 12:50pm AMA (advanced maternal age) multigravida 35+ acute December 19, 2024 9:13am History of atony of uterus acute December 19, 2024 9:13am acute December 19 9:13am Supervision of normal acut e December 19, 2024 9:13am AMA (advanced maternal age) multigravida 35+ acute January 16 8:37am History of atony of uterus acute January 16 8:37am acute January 16, 8:37am Supervision of normal acut e January 16, 2025 8:37am [facility] Work Phone: [phone]) 713-427605-23-2025 Evaluation note* Diagnosis Onset Date Resolution Status Admit Date AMA (advanced maternal age) multigravida 35+ acute October 19, 2024 8:39am History of atony of uterus acute October 19, 2024 8 :39am acute October 19, 2024 8:39am Supervision of normal acute October 19, 2024 8 :39am AMA (advanced maternal age) multigravida 35+ acute November 20, 2024 12:50pm History of atony of uterus acute November 20, 2024 12:50pm acute November 20 12:50pm Supervision of normal acute November 20, 2024 12:50pm AMA (advanced maternal age) multigravida 35+ acute December 19, 2024 9:13am History of atony of uterus acute December 19, 2024 9:13am acute December 19 9:13am Supervision of normal acute December 19, 2024 9:13am AMA (advanced maternal age) multigravida 35+ acute January 16 8:37am History of atony of uterus acute January 16 8:37am acute January 16 025 8:37am Supervision of normal acute January 16 8:37am AMA (advanced maternal age) multigravida 35+ acute February 12, 2025 8:36am History of atony of uterus acute February 12, 2025 8:36am acute January 8:36am Supervision of normal acute February 12, 2025 8:36am [facility] Work Phone: Evaluation note* Diagnosis Onset Date Resolution Status Antepartum asymptomatic bacteriuria acute acute Supervision of normal acute Antepartum asymptomatic bacteriuria acute COVID-19 affecting in second trimester acute acute Supervision of normal acute Antepartum asymptomatic bacteriuria acute COVID-19 affecting in second trimester acute Low-lying placenta in second trimester acute acute Supervision of normal acute Antepartum asymptomatic bacteriuria acute COVID-19 affecting in second trimester acute Low-lying placenta in second trimester acute acute Supervision of normal acute COVID-19 affecting in second trimester acute acute Supervision of normal [facility] Work Phone: Evaluation note* Diagnosis Onset Date Resolution Status Antepartum asymptomatic bacteriuria acute COVID-19 affecting in second trimester acute acute Supervision of normal acute Antepartum asymptomatic bacteriuria acute COVID-19 affecting in second trimester acute Low-lying placenta in second trimester acute acute Supervision of normal acute Antepartum asymptomatic bacteriuria acute COVID-19 affecting in second trimester acute Low-lying placenta in second trimester acute acute Supervision of normal acute COVID-19 affecting in second trimester acute acute Supervision of normal acute Antepartum asymptomatic bacteriuria acute COVID-19 affecting in second trimester acute Low-lying placenta in second trimester acute acute Supervision of normal acute Antepartum asymptomatic bacteriuria acute COVID-19 affecting in second trimester acute Low-lying placenta in second trimester acute acute Supervision of normal [facility] Work Phone: Evaluation note* Diagnosis Onset Date Resolution Status Antepartum asymptomatic bacteriuria acute COVID-19 affecting in second trimester acute Low-lying placenta in second trimester acute acute Supervision of normal acute Antepartum asymptomatic bacteriuria acute COVID-19 affecting in second trimester acute Low-lying placenta in second trimester acute acute Supervision of normal acute COVID-19 affecting in second trimester acute acute Supervision of normal acute Antepartum asymptomatic bacteriuria acute COVID-19 affecting in second trimester acute Low-lying placenta in second trimester acute acute Supervision of normal acute Antepartum asymptomatic bacteriuria acute COVID-19 affecting in second trimester acute Low-lying placenta in second trimester acute acute Supervision of normal acute Antepartum asymptomatic bacteriuria acute COVID-19 affecting in second trimester acute Low-lying placenta in second trimester acute acute Supervision of normal acute Antepartum asymptomatic bacteriuria acute COVID-19 affecting in second trimester acute Low-lying placenta in second trimester acute acute Supervision of normal [facility] Work Phone: Evaluation note* Diagnosis Onset Date Resolution Status Antepartum asymptomatic bacteriuria acute COVID-19 affecting in second trimester acute Low-lying placenta in second trimester acute acute Supervision of normal acute COVID-19 affecting in second trimester acute acute Supervision of normal acute Antepartum asymptomatic bacteriuria acute COVID-19 affecting in second trimester acute Low-lying placenta in second trimester acute acute Supervision of normal acute Antepartum asymptomatic bacteriuria acute COVID-19 affecting in second trimester acute Low-lying placenta in second trimester acute acute Supervision of normal acute Antepartum asymptomatic bacteriuria acute COVID-19 affecting in second trimester acute Low-lying placenta in second trimester acute acute Supervision of normal acute Antepartum asymptomatic bacteriuria acute COVID-19 affecting in second trimester acute Low-lying placenta in second trimester acute acute Supervision of normal acute Antepartum asymptomatic bacteriuria acute COVID-19 affecting in second trimester acute Low-lying placenta in second trimester acute acute Supervision of normal acute Antepartum asymptomatic bacteriuria acute COVID-19 affecting in second trimester acute Low-lying placenta in second trimester acute acute Supervision of normal acute Antepartum asymptomatic bacteriuria acute COVID-19 affecting in second trimester acute Low-lying placenta in second trimester acute acute Supervision of normal acute Antepartum asymptomatic bacteriuria acute COVID-19 affecting in second trimester acute Low-lying placenta in second trimester acute acute Supervision of normal [facility] Work Phone: Evaluation note* Diagnosis Onset Date Resolution Status Antepartum asymptomatic bacteriuria resolved COVID-19 affecting in second trimester resolved Low-lying placenta in second trimester resolved resolved Supervision of normal resolved COVID-19 affecting in second trimester resolved resolved Supervision of normal resolved Antepartum asymptomatic bacteriuria resolved COVID-19 affecting in second trimester resolved Low-lying placenta in second trimester resolved resolved Supervision of normal resolved Antepartum asymptomatic bacteriuria resolved COVID-19 affecting in second trimester resolved Low-lying placenta in second trimester resolved resolved Supervision of normal resolved Antepartum asymptomatic bacteriuria resolved COVID-19 affecting in second trimester resolved Low-lying placenta in second trimester resolved resolved Supervision of normal resolved Antepartum asymptomatic bacteriuria resolved COVID-19 affecting in second trimester resolved Low-lying placenta in second trimester resolved resolved Supervision of normal resolved Antepartum asymptomatic bacteriuria resolved COVID-19 affecting in second trimester resolved Low-lying placenta in second trimester resolved resolved Supervision of normal resolved Antepartum asymptomatic bacteriuria resolved COVID-19 affecting in second trimester resolved Low-lying placenta in second trimester resolved resolved Supervision of normal resolved Antepartum asymptomatic bacteriuria resolved COVID-19 affecting in second trimester resolved Low-lying placenta in second trimester resolved resolved Supervision of normal resolved Antepartum asymptomatic bacteriuria resolved COVID-19 affecting in second trimester resolved Low-lying placenta in second trimester resolved resolved Supervision of normal resolved atony of uterus with hemorrhage acute Vaginal delivery acute Antepartum asymptomatic bacteriuria resolved COVID-19 affecting in second trimester resolved Low-lying placenta in second trimester resolved resolved Supervision of normal resolved [facility] Work Phone: Progress note Author Calista Davis [facility] Note Date/Time November 20, 2024 1:16 pm [facility] [address] [place] [address], [address] [place] [address] OFFICE VISIT Date of Service: 11/20/24 MR#: [id number] Acct: [id number] Name: BARRIE WEBSTER Rep #: [id number] : 1985 Provider: Dr. Balbir Davis MD Age/Sex: 39/F Location: [facility] Status: Signed Intake Vital Signs 01/11/22 11:22 10/19/24 08:41 11/20/24 12:59 Height 5 ft 5 in 5 ft 5 in 5 ft 5 in Weight: 139 lb 2 oz BMI 23.1 BP 99/56 L Intake Visit Reasons: 13wk OB Vendor Management Specialist Required: No Is patient in pain?: No Allergies No Known Allergies Allergy (Verified 11/20/24 13:01) Medications ?Medication ?Instructions ?Recorded ?Confirmed ?Type multivitamin no.47-iron fum 27 1 cap PO DAILY Check wi th primary 03/30/21 11/20/24 History mg-folate no.1 1 mg-dha 300 mg doctor capsule (PNV-DHA) Last Menstrual Period: 08/17/24 Zika: Zika virus screening: Negative : No PFSH PFSH Medical History atony of uterus with hemorrhage Vaginal delivery Low-lying placenta in second trimester Surgical History [place] teeth extracted Family History Grandfather Cancer, Onset Age: 60 Maternal skin cancer Hypertension Maternal & Paternal Mother Diabetes Hypertension Grandfather Heart disease Maternal Father Hypertension Grandmother Hypertension Maternal & Paternal Social History adopted: No household members: spouse and children housing: house number of children: 1 current occupational status: unemployed current occupation: [employer] pets and animals: Yes (Avoid litterbox) pets and animals: cat(s) and dog(s) history of recent travel: Yes (- September) out of state: Yes out of country: No sexually active: Yes Smoking Status: Never smoker second hand exposure: No alcohol intake: never substance use type: does not use well-balanced diet: daily or most days caffeine: Yes Type: coffee Number of servings: 1 eating out: 1-3 times/week during the past year weight has: increased > 10 lbs what type of physical activity do you participate in: walking, bicycling and other details: strength training frequency: daily duration: 45-60 minutes/day manuel/bahai: Temple seatbelt use: always do you feel safe at home: Yes additional social history: - Richi- [employer] History 2 Elective abortions 0 Hx Para 1 Spontaneous abortions Hx # Term Pregnancies Ectopic pregnancies Hx # Pregnancies Multiple births # of living children 1 Past Pregnancies Del. Date Name GA/Weeks Outcome Route Bth Weight Gen Labor Lgth Anesthesia Del Locatn Provider FOB 11/27/21 Lisa 41 live - full term 7lbs 9oz Female ep idural [facility] Dr. Krystal Stoddard Delivery Date: 11/27/21 Last Updated by: Lianet Caceres hemorrhage, atony of uterus HPI 13wk OB Details: BARRIE WEBSTER is a 39 year old who presents for routine OB visit. OB Visit BRITANY Calculator Estimated Delivery Date Method Current WG Current Estimate 05/24/25 LMP (Certain) 13w 4d Other Estimates 05/25/25 Ultrasound #1 13w 3d Expected Delivery Route/Plan Labor Preferences- CB/BF classes: [] labor support person: [] labor intervention preferences: [] pain management options preferred: [] cut cord/dad catch: [] : [] PP control planned: [] discussed possible routes of delivery and associated risks: [] special requests: [] Specific Issue/Plans Covid status: [] Flu vaccine: [] Tdap vaccine: [] Rhogam: [] LARC form signed: [] Problem list reviewed and updated with the most current plan of care details and appropriate orders placed. Relevant counseling for the gestational age provided. Continue routine care and follow up unless otherwise noted in visit notes/problem list details Initial Weight: 138 lb Date -?-?-?-?-?-?-?-?-?-?-?-?- EGA Weight BP Urine Prot -?-?-?-?-?-?-?-?-?-?-?-?- Glucose FHR FuHt Pres Dilation -?-?-?-?-?-?-?-?-?-?-?-?- Effaced St Visit Note 10/19/24 -?-?-?-?-?-?-?-?-?-?-?-?- 9w 0d 138 lb (+0 oz) 107/69 -?-?-?-?-?-?-?-?-?-?-?-?- 179 -?-?-?-?-?-?-?-?-?-?-?-?- KW- CRL cons wit h dates. Accepts NIPT. 11/20/24 -?-?-?-?-?-?-?-?-?-?-?-?- 13w 4d 139 lb 2 oz (+1 lb 2 oz) 99/56 Negative -?-?-?-?-?-?-?-?-?-?-?-?- Negative 150 -?-?-?-?-?-?-?-?-?-?-?-?- SM- no vb crampi ng ACOG First Trimester First Trimester: Desire for , Alcohol, Tobacco Cessation, Illicit/Recreational Drug/Substance Use, Intimate Partner Violence, Barriers to care, Unstable Housing, Communication Barriers, Environmental/Work Hazards, Anticipated Course of Care, Toxoplasmosis Precations, Use of Any medications, Sexual activity, Exercise, Dental Care, Sauna/Hot tub use, Seat Belt use, Childbirth classes/Hospital facilities, Travel, Indications for Ultrasound and Screening for Aneuploidy; Discussed Second Trimester Second Trimester: Signs and Symptoms of Labor, Selecting a care provider, Reproductive Life Planning & Contreception, Care Planning, Depression/Anxiety and Intimate Partner Violence; Discussed Tobacco Cessation Third Trimester Third Trimester: Pain Management Plans, Labor support person(s), Immediate Larc, Signs and Symptoms of Preeclampsia, Feeding No and Family Medical Leave or Disability Forms Results POC Urinalysis 2 Dip (Clinic) Office Urine Glucose Negative Last Edit by Winter Goode on 11/20/24 13:06 Office Urine Protein Negative Last Edit by Winter Goode on 11/20/24 13:06 Coding Level of Care Code OB Routine Diagnoses AMA (advanced maternal age) multigravida 35+ O09.529 Supervision of normal Z34.90 History of atony of uterus Z87.59 13 weeks gestation of Z3A.13 Weeks of gestation: 13 weeks Assessment and Plan Assessment and Plan (1) AMA (advanced maternal age) multigravida 35+: Status: Acute Comment: growth at 36 weeks. deliver 39 weeks (2) Supervision of normal : Status: Acute Comment: PRR, , BRITANY 05/24/25 girl PC Lisa, Richi (3) History of atony of uterus: Status: Acute Comment: with hemorrhage (4) : Status: Acute Qualifiers: Weeks of gestation: 13 weeks Qualified Code(s): Z3A.13 - 13 weeks gestation of Comment: NIPt low risk, previous Carrier Neg. Orders: Orders POC Urinalysis 2 Dip (Clinic) Today 11/20/24 1316 <Electronically signed by Calista britton MD> Date _ Calista Davis MD Cosigner Signature: Date (if applicable) CC: ~ [facility] Work Phone: Progress note Author Manasa Hernandez [facility] Note Date/Time December 19, 2024 9:48 am [facility] [address] [place] [address], [address] [place] [address] OFFICE VISIT Date of Service: 12/19/24 MR#: [id number] Acct: [id number] Name: BARRIE WEBSTER Rep #: [id number] : 1985 Provider: Dr. Snow Sommer DO Age/Sex: 39/F Location: [facility] [place] [facility] [place] Status: Signed Intake Vital Signs 10/19/24 08:41 11/20/24 12:59 12/19/24 09:20 Height 5 ft 5 in 5 ft 5 in 5 ft 5 in Weight: 144 lb 8 oz BMI 24.0 BP 98/65 Intake Visit Reasons: 18wk ob Vendor Management Specialist Required: No Is patient in pain?: No Allergies No Known Allergies Allergy (Verified 12/19/24 09:21) Medications ?Medication ?Instructions ?Recorded ?Confirmed ?Type multivitamin no.47-iron fum 27 1 cap PO DAILY Check wi primary 03/30/21 12/19/24 History mg-folate no.1 1 mg-dha 300 mg doctor capsule (PNV-DHA) Last Menstrual Period: 08/17/24 Zika: Zika virus screening: Negative : No PFSH PFSH Medical History atony of uterus with hemorrhage Vaginal delivery Low-lying placenta in second trimester Surgical History [place] teeth extracted Family History Grandfather Cancer, Onset Age: 60 Maternal skin cancer Hypertension Maternal & Paternal Mother Diabetes Hypertension Grandfather Heart disease Maternal Father Hypertension Grandmother Hypertension Maternal & Paternal Social History adopted: No household members: spouse and children housing: house number of children: 1 current occupational status: unemployed current occupation: [employer] pets and animals: Yes (Avoid litterbox) pets and animals: cat(s) and dog(s) history of recent travel: Yes (- September) out of state: Yes out of country: No sexually active: Yes Smoking Status: Never smoker second hand exposure: No alcohol intake: never substance use type: does not use well-balanced diet: daily or most days caffeine: Yes Type: coffee Number of servings: 1 eating out: 1-3 times/week during the past year weight has: increased > 10 lbs what type of physical activity do you participate in: walking, bicycling and other details: strength training frequency: daily duration: 45-60 minutes/day manuel/bahai: Temple seatbelt use: always do you feel safe at home: Yes additional social history: - Richi- [employer] History 2 Elective abortions 0 Hx Para 1 Spontaneous abortions Hx # Term Pregnancies Ectopic pregnancies Hx # Pregnancies Multiple births # of living children 1 Past Pregnancies Del. Date Name GA/Weeks Outcome Route Bth Weight Infant Gen Labor Lgth Anesthesia Del Locatn Provider FOB 11/27/21 Lisa 41 live - full term 7lbs 9oz Female ep idural [facility] Dr. Krystal Stoddard Delivery Date: 11/27/21 Last Updated by: Lianet L Nicki hemorrhage, atony of uterus HPI 18wk ob Details: BARRIE WEBSTER is a 39 year old who presents for routine OB visit. OB Visit BRITANY Calculator Estimated Delivery Date Method Current WG Current Estimate 05/24/25 LMP (Certain) 17w 5d Other Estimates 05/25/25 Ultrasound #1 17w 4d Expected Delivery Route/Plan Labor Preferences- CB/BF classes: [] labor support person: [] labor intervention preferences: [] pain management options preferred: [] cut cord/dad catch: [] : [] PP control planned: [] discussed possible routes of delivery and associated risks: [] special requests: [] Specific Issue/Plans Covid status: [] Flu vaccine: [] Tdap vaccine: [] Rhogam: [] LARC form signed: [] Problem list reviewed and updated with the most current plan of care details and appropriate orders placed. Relevant counseling for the gestational age provided. Continue routine care and follow up unless otherwise noted in visit notes/problem list details Initial Weight: 138 lb Date -?-?-?-?-?-?-?-?-?-?-?-?- EGA Weight BP Urine Prot -?-?-?-?-?-?-?-?-?-?-?-?- Glucose FHR FuHt Pres Dilation -?-?-?-?-?-?-?-?-?-?-?-?- Effaced St Visit Note 10/19/24 -?-?-?-?-?-?-?-?-?-?-?-?- 9w 0d 138 lb (+0 oz) 107/69 -?-?-?-?-?-?-?-?-?-?-?-?- 179 -?-?-?-?-?-?-?-?-?-?-?-?- KW- CRL cons wit h dates. Accepts NIPT. 11/20/24 -?-?-?-?-?-?-?-?-?-?-?-?- 13w 4d 139 lb 2 oz (+1 lb 2 oz) 99/56 Negative -?-?-?-?-?-?-?-?-?-?-?-?- Negative 150 -?-?-?-?-?-?-?-?-?-?-?-?- SM- no vb crampi ng 12/19/24 -?-?-?-?-?-?-?-?-?-?-?--?- 17w 5d 144 lb 8 oz (+6 lb 8 oz) 98/65 -?-?-?-?-?-?-?-?-?-?-?-?- 161 -?-?-?-?-?-?-?-?-?-?-?-?- JV- no lof, vagi nal bleeding, or dec fm. has anatomy scan on 12/27 ACOG First Trimester First Trimester: Desire for , Alcohol, Tobacco Cessation, Illicit/Recreational Drug/Substance Use, Intimate Partner Violence, Barriers to care, Unstable Housing, Communication Barriers, Environmental/Work Hazards, Anticipated Course of Care, Toxoplasmosis Precations, Use of Any medications, Sexual activity, Exercise, Dental Care, Sauna/Hot tub use, Seat Belt use, Childbirth classes/Hospital facilities, Travel, Indications for Ultrasound and Screening for Aneuploidy; Discussed Second Trimester Second Trimester: Signs and Symptoms of Labor, Selecting a care provider, Reproductive Life Planning & Contreception, Care Planning, Depression/Anxiety and Intimate Partner Violence; Discussed Tobacco Cessation Third Trimester Third Trimester: Pain Management Plans, Labor support person(s), Immediate Larc, Signs and Symptoms of Preeclampsia, Feeding No and Family Medical Leave or Disability Forms Coding Level of Care Code OB Routine Diagnoses AMA (advanced maternal age) multigravida 35+ O09.529 Supervision of normal Z34.90 History of atony of uterus Z87.59 17 weeks gestation of Z3A.17 Weeks of gestation: 17 weeks Assessment and Plan Assessment and Plan (1) AMA (advanced maternal age) multigravida 35+: Status: Acute Comment: growth at 36 weeks. deliver 39 weeks (2) Supervision of normal : Status: Acute Comment: PRR, , BRITANY 05/24/25 girl PC Lisa, Richi (3) History of atony of uterus: Status: Acute Comment: with hemorrhage (4) : Status: Acute Qualifiers: Weeks of gestation: 17 weeks Qualified Code(s): Z3A.17 - 17 weeks gestation of Comment: NIPt low risk, previous Carrier Neg. Orders: Orders POC Urinalysis 2 Dip (Clinic) Today 12/19/24 0948 <Electronically signed by Manasa Ace DO> Date _ Manasa Sommer DO Cosigner Signature: Date (if applicable) CC: ~ [facility] Work Phone: Progress note Author Nneka Salcido [facility] Note Date/Time February 12, 2025 9:13am [facility] [address], [address] [place] [address] OFFICE VISIT Date of Service: 02/12/25 MR#: [id number] Acct: [id number] Name: BARRIE WEBSTER Rep #: [id number] : 1985 Provider: BRODIE Salcido Age/Sex: 39/F Location[place] [facility] [place] Status: Signed Intake Vital Signs 12/19/24 09:20 01/16/25 08:47 02/12/25 08:43 Height 5 ft 5 in 5 ft 5 in 5 ft 5 in Weight: 150 lb 7 oz BMI 25.0 BP 105/73 Intake Visit Reasons: 26wk ob/glucose Chief Complaint: 26wk OB/Glucose Vendor Management Specialist Required: No Is patient in pain?: No Allergies No Known Allergies Allergy (Verified 02/12/25 08:41) Medications ?Medication ?Instructions ?Recorded ?Confirmed ?Type multivitamin no.47-iron fum 27 1 cap PO DAILY Check wi th primary 03/30/21 02/12/25 History mg-folate no.1 1 mg-dha 300 mg doctor capsule (PNV-DHA) Last Menstrual Period: 08/17/24 : No PFSH PFSH Medical History atony of uterus with hemorrhage Vaginal delivery Low-lying placenta in second trimester Surgical History [place] teeth extracted Family History Grandfather Cancer, Onset Age: 60 Maternal skin cancer Hypertension Maternal & Paternal Mother Diabetes Hypertension Grandfather Heart disease Maternal Father Hypertension Grandmother Hypertension Maternal & Paternal Social History adopted: No household members: spouse and children housing: house number of children: 1 current occupational status: unemployed current occupation: [employer] pets and animals: Yes (Avoid litterbox) pets and animals: cat(s) and dog(s) history of recent travel: Yes (- September) out of state: Yes out of country: No sexually active: Yes Smoking Status: Never smoker second hand exposure: No alcohol intake: never substance use type: does not use well-balanced diet: daily or most days caffeine: Yes Type: coffee Number of servings: 1 eating out: 1-3 times/week during the past year weight has: increased > 10 lbs what type of physical activity do you participate in: walking, bicycling and other details: strength training frequency: daily duration: 45-60 minutes/day manuel/bahai: Temple seatbelt use: always do you feel safe at home: Yes additional social history: - Richi- [employer] History 2 Elective abortions 0 Hx Para 1 Spontaneous abortions Hx # Term Pregnancies Ectopic pregnancies Hx # Pregnancies Multiple births # of living children 1 Past Pregnancies Del. Date Name GA/Weeks Outcome Route Bth Weight Gen Labor Lgth Anesthesia Del Locatn Provider FOB 11/27/21 Lisa 41 live - full term 7lbs 9oz Female ep idural [facility] Dr. Krystal Stoddard Delivery Date: 11/27/21 Last Updated by: Lianet Caceres hemorrhage, atony of uterus HPI 26wk ob/glucose Details: BARRIE WEBSTER is a 39 year old who presents for routine OB visit. OB Visit BRITANY Calculator Estimated Delivery Date Method Current WG Current Estimate 05/24/25 LMP (Certain) 25w 4d Other Estimates 05/25/25 Ultrasound #1 25w 3d Expected Delivery Route/Plan Labor Preferences- CB/BF classes: NO labor support person: Richi labor intervention preferences: [] pain management options preferred: epidural cut cord/dad catch: yes : yes PP control planned: [] discussed possible routes of delivery and associated risks: [] special requests: [] Specific Issue/Plans Covid status: [] Flu vaccine: [] Tdap vaccine: [] Rhogam: na LARC form signed: [] Problem list reviewed and updated with the most current plan of care details and appropriate orders placed. Relevant counseling for the gestational age provided. Continue routine care and follow up unless otherwise noted in visit notes/problem list details Initial Weight: 138 lb Date -?-?-?-?-?-?-?-?-?-?-?-?- EGA Weight BP Urine Prot -?-?-?-?-?-?-?-?-?-?-?-?- Glucose FHR FuHt Pres Dilation -?-?-?-?-?-?-?-?-?-?-?-?- Effaced St Visit Note 10/19/24 -?-?-?-?-?-?-?-?-?-?-?-?- 9w 0d 138 lb (+0 oz) 107/69 -?-?-?-?-?-?-?-?-?-?-?-?- 179 -?-?-?-?-?-?-?-?-?-?-?-?- KW- CRL cons wit h dates. Accepts NIPT. 11/20/24 -?-?-?-?-?-?-?-?-?-?-?-?- 13w 4d 139 lb 2 oz (+1 lb 2 oz) 99/56 Negative -?-?-?-?-?-?-?-?-?-?-?-?- Negative 150 -?-?-?-?-?-?-?-?-?-?-?-?- SM- no vb crampi ng 12/19/24 -?-?-?-?-?-?-?-?-?-?-?-?- 17w 5d 144 lb 8 oz (+6 lb 8 oz) 98/65 Negative -?-?-?-?-?-?-?-?-?-?-?-?- Negative 161 -?-?-?-?-?-?-?-?-?-?-?-?- JV- no lof, vagi nal bleeding, or dec fm. has anatomy scan on 12/2701/16/25 -?-?-?-?-?-?-?-?-?-?-?-?- 21w 5d 145 lb 5 oz (+7 lb 5 oz) 98/60 Negative -?-?-?-?-?-?-?-?-?-?-?-?- Negative 154 -?-?-?-?-?-?-?-?-?-?-?-?- MH-No VB. Lul Whitney. Denies concerns 02/12/25 -?-?-?-?-?-?-?-?-?-?-?-?- 25w 4d 150 lb 7 oz (+12 lb 7 oz) 105/73 Negative -?-?-?-?-?-?-?-?-?-?-?-?- Negative 145 25 -?-?-?-?-?-?-?-?-?-?-?-?- KW- no vb/lof/ct x. lul fm. LARC today. glucose today. ACOG First Trimester First Trimester: Desire for , Alcohol, Tobacco Cessation, Illicit/Recreational Drug/Substance Use, Intimate Partner Violence, Barriers to care, Unstable Housing, Communication Barriers, Environmental/Work Hazards, Anticipated Course of Care, Toxoplasmosis Precations, Use of Any medications, Sexual activity, Exercise, Dental Care, Sauna/Hot tub use, Seat Belt use, Childbirth classes/Hospital facilities, Travel, Indications for Ultrasound and Screening for Aneuploidy; Discussed Second Trimester Second Trimester: Signs and Symptoms of Labor, Selecting a care provider, Reproductive Life Planning & Contreception, Care Planning, Depression/Anxiety and Intimate Partner Violence; Discussed Tobacco Cessation Third Trimester Third Trimester: Pain Management Plans, Labor support person(s), Immediate Larc, Signs and Symptoms of Preeclampsia, Infant Feeding No and Family Medical Leave or Disability Forms ROS Const Reports system reviewed and no additional complaints, except as documented Eyes Reports system reviewed and no additional complaints, except as documented ENT Reports system reviewed and no additional complaints, except as documented Card Reports system reviewed and no additional complaints, except as documented Resp Reports system reviewed and no additional complaints, except as documented GI Reports system reviewed and no additional complaints, except as documented, Denies nausea and Denies vomiting Reports system reviewed and no additional complaints, except as documented Musc Reports system reviewed and no additional complaints, except as documented Skin/Breast Reports system reviewed and no additional complaints, except as documented Neuro Yes system reviewed and no additional complaints, except as documented Psych Reports system reviewed and no additional complaints, except as documented Endo Reports system reviewed and no additional complaints, except as documented Wilner/Lymph Reports system reviewed and no additional complaints, except as documented Aller/Immun Reports system reviewed and no additional complaints, except as documented Exam Const General: cooperative, healthy appearing and no acute distress Orientation: alert, awake and oriented x3 Neck Neck: normal visual inspection and full ROM Resp Effort & Inspection: normal respiratory effort, able to speak in complete sentences and symmetric chest movement GI Inspection: normal to inspection Palpation: soft and other Other: gravid Skin General: no rashes or lesions noted Neuro General: patient alert, patient awake and patient oriented x3 Cognition: normal cognition Speech: speech normal Gait: normal gait Motor: muscle tone normal throughout Extrem General: normal to inspection and full ROM Psych Appearance: grossly normal Mental Status: mental status grossly normal Mood: congruent mood Affect: normal affect Speech and Movement: speech and movement normal Attitude: cooperative Thought Process: normal Thought Content: normal Judgment: judgment good Results POC Urinalysis 2 Dip (Clinic) 2 Office Urine Glucose Negative Last Edit by Melissa Durand on 02/12/25 08:50 Office Urine Protein Negative Last Edit by Melissa Durand on 02/12/25 08:50 Coding Level of Care Code OB Routine Diagnoses Multigravida of advanced maternal age in second trimester O09.522 Trimester: second trimester History of atony of uterus Z87.59 Encounter for supervision of other normal in second trimester Z34.82 Normal : other normal Trimester: second trimester 25 weeks gestation of Z3A.25 Weeks of gestation: 25 weeks Assessment and Plan Assessment and Plan (1) AMA (advanced maternal age) multigravida 35+: Status: Acute Qualifiers: Trimester: second trimester Qualified Code(s): O09.522 - Supervision of elderly multigravida, second trimester Comment: growth at 36 weeks. deliver 39 weeks (2) History of atony of uterus: Status: Acute Comment: with hemorrhage (3) Supervision of normal : Status: Acute Qualifiers: Normal : other normal Trimester: second trimester Qualified Code(s): Z34.82 - Encounter for supervision of other normal , second trimester Comment: PRR, , BRITANY 05/24/25 girl JAVAN Gonzalez, Richi (4) : Status: Acute Qualifiers: Weeks of gestation: 25 weeks Qualified Code(s): Z3A.25 - 25 weeks gestation of Comment: NIPt low risk, previous Carrier Neg. Orders: Orders POC Urinalysis 2 Dip (Clinic) Today CBC W/Diff, Automated Today Z34.82 - Encounter for supervision of other normal , second trimester Glucose Challenge Gest 1H 50g Today Z13.1 - Encounter for screening for diabetes mellitus, Z34.82 - Encounter for supervision of other normal , second trimester HIV Today Z34.82 - Encounter for supervision of other normal , second trimester Syphilis Antibodies Today Z34.82 - Encounter for supervision of other normal , second trimester Plan Details Additional Comments: ACOG trimester education reviewed and updated. see problem list details for updated plan management information and see below for orders placed at this visit. GA appropriate handout given. 02/12/25 3328 <Electronically signed by Nneka canales CNM> Date _ Nneka Salcido CNM Cosigner Signature: Date (if applicable) CC: ~ [facility] Work Phone: Progress note Author Calista Davis [facility] Note Date/Time March 13, 2025 9 :43am [facility] [address], [address] [place] [address] OFFICE VISIT Date of Service: 03/13/25 MR#: [id number] Acct: [id number] Name: BARRIE WEBSTER Rep #: [id number] : 1985 Provider: Dr. Balbir Davis MD Age/Sex: 39/F Location[place] [facility] [place] Status: Signed Intake Vital Signs 12/19/24 09:20 02/12/25 08:43 03/13/25 09:20 Height 5 ft 5 in 5 ft 5 in 5 ft 5 in Weight: 155 lb 1 oz BMI 25.8 BP 104/53 L Intake Visit Reasons: 30wk ob Vendor Management Specialist Required: No Is patient in pain?: No Allergies No Known Allergies Allergy (Verified 03/13/25 09:20) Medications ?Medication ?Instructions ?Recorded ?Confirmed ?Type multivitamin no.47-iron fum 27 1 cap PO DAILY Check wi th primary 03/30/21 03/13/25 History mg-folate no.1 1 mg-dha 300 mg doctor capsule (PNV-DHA) Last Menstrual Period: 08/17/24 Zika: Zika virus screening: Negative : No PFSH PFSH Medical History atony of uterus with hemorrhage Vaginal delivery Low-lying placenta in second trimester Surgical History [place] teeth extracted Family History Grandfather Cancer, Onset Age: 60 Maternal skin cancer Hypertension Maternal & Paternal Mother Diabetes Hypertension Grandfather Heart disease Maternal Father Hypertension Grandmother Hypertension Maternal & Paternal Social History adopted: No household members: spouse and children housing: house number of children: 1 current occupational status: unemployed current occupation: [employer] pets and animals: Yes (Avoid litterbox) pets and animals: cat(s) and dog(s) history of recent travel: Yes (- September) out of state: Yes out of country: No sexually active: Yes Smoking Status: Never smoker second hand exposure: No alcohol intake: never substance use type: does not use well-balanced diet: daily or most days caffeine: Yes Type: coffee Number of servings: 1 eating out: 1-3 times/week during the past year weight has: increased > 10 lbs what type of physical activity do you participate in: walking, bicycling and other details: strength training frequency: daily duration: 45-60 minutes/day manuel/bahai: Temple seatbelt use: always do you feel safe at home: Yes additional social history: - Richi- [employer] History 2 Elective abortions 0 Hx Para 1 Spontaneous abortions Hx # Term Pregnancies Ectopic pregnancies Hx # Pregnancies Multiple births # of living children 1 Past Pregnancies Del. Date Name GA/Weeks Outcome Route Bth Weight Gen Labor Lgth Anesthesia Del Locatn Provider FOB 11/27/21 Lisa 41 live - full term 7lbs 9oz Female ep idural [facility] Dr. Krystal Stoddard Delivery Date: 11/27/21 Last Updated by: Lianet Caceres hemorrhage, atony of uterus HPI 30wk ob Details: BARRIE WEBSTER is a 39 year old who presents for routine OB visit. OB Visit BRITANY Calculator Estimated Delivery Date Method Current WG Current Estimate 05/24/25 LMP (Certain) 29w 5d Other Estimates 05/25/25 Ultrasound #1 29w 4d Expected Delivery Route/Plan Labor Preferences- CB/BF classes: NO labor support person: Richi labor intervention preferences: [] pain management options preferred: epidural cut cord/dad catch: yes : yes PP control planned: [] discussed possible routes of delivery and associated risks: [] special requests: [] Specific Issue/Plans Covid status: [] Flu vaccine: [] Tdap vaccine: [] Rhogam: na LARC form signed: [] Problem list reviewed and updated with the most current plan of care details and appropriate orders placed. Relevant counseling for the gestational age provided. Continue routine care and follow up unless otherwise noted in visit notes/problem list details Initial Weight: 138 lb Date -?-?-?-?-?-?-?-?-?-?-?-?- EGA Weight BP Urine Prot -?-?-?-?-?-?-?-?-?-?-?-?- Glucose FHR FuHt Pres Dilation -?-?-?-?-?-?-?-?-?-?-?-?- Effaced St Visit Note 10/19/24 -?-?-?-?-?-?-?-?-?-?-?-?- 9w 0d 138 lb (+0 oz) 107/69 -?-?-?-?-?-?-?-?-?-?-?-?- 179 -?-?-?-?-?-?-?-?-?-?-?-?- KW- CRL cons wit h dates. Accepts NIPT. 11/20/24 -?-?-?-?-?-?-?-?-?-?-?-?- 13w 4d 139 lb 2 oz (+1 lb 2 oz) 99/56 Negative -?-?-?-?-?-?-?-?-?-?-?-?- Negative 150 -?-?-?-?-?-?-?-?-?-?-?-?- SM- no vb crampi ng 12/19/24 -?-?-?-?-?-?-?--?-?-?-?-?- 17w 5d 144 lb 8 oz (+6 lb 8 oz) 98/65 Negative -?-?-?-?-?-?-?-?-?-?-?-?- Negative 161 -?-?-?-?-?-?-?-?-?-?-?-?- JV- no lof, vagi nal bleeding, or dec fm. has anatomy scan on 12/2701/16/25 -?-?-?-?-?-?-?-?-?-?-?-?- 21w 5d 145 lb 5 oz (+7 lb 5 oz) 98/60 Negative -?-?-?-?-?-?-?-?-?-?-?-?- Negative 154 -?-?-?-?-?-?-?-?-?-?-?-?- MH-No VB. Lul Whitman Denies concerns 02/12/25 -?-?-?-?-?-?-?-?-?-?-?-?- 25w 4d 150 lb 7 oz (+12 lb 7 oz) 105/73 Negative -?-?-?-?-?-?-?-?-?-?-?-?- Negative 145 25 -?-?-?-?-?-?-?-?-?-?-?-?- KW- no vb/lof/ct x. good fm. LARC today. glucose today. 03/13/25 -?-?-?-?-?-?-?-?-?-?-?-?- 29w 5d 155 lb 1 oz (+17 lb 1 oz) 104/53 Negative -?-?-?-?-?-?-?-?-?-?-?-?- Negative 140 30 -?-?-?-?-?-?-?-?-?-?-?-?- SM- no vb lof go od fm n oregular ctx ACOG First Trimester First Trimester: Desire for , Alcohol, Tobacco Cessation, Illicit/Recreational Drug/Substance Use, Intimate Partner Violence, Barriers to care, Unstable Housing, Communication Barriers, Environmental/Work Hazards, Anticipated Course of Care, Toxoplasmosis Precations, Use of Any medications, Sexual activity, Exercise, Dental Care, Sauna/Hot tub use, Seat Belt use, Childbirth classes/Hospital facilities, Travel, Indications for Ultrasound and Screening for Aneuploidy; Discussed Second Trimester Second Trimester: Signs and Symptoms of Labor, Selecting a care provider, Reproductive Life Planning & Contreception, Care Planning, Depression/Anxiety and Intimate Partner Violence; Discussed Tobacco Cessation Third Trimester Third Trimester: Pain Management Plans, Labor support person(s), Immediate Larc, Signs and Symptoms of Preeclampsia, Feeding No and Family Medical Leave or Disability Forms Results POC Urinalysis 2 Dip (Clinic) Office Urine Glucose Negative Last Edit by Winter Goode on 03/13/25 09:32 Office Urine Protein Negative Last Edit by Winter Goode on 03/13/25 09:32 Immunizations Adacel(Tdap Adolesn/Adult)(PF) 2 Lf-(2.5-5-3-5)-5 Lf/0.5 mL IM syringe Performing Provider: Calista Davis MD Performing Location: [facility] Administered by: Winter Goode on 03/13/25 09:29 Dose Route Admin Location Dispensed Lot Number Expiration Date Pack age NDC NDC Reel Stripper 0.5 mL IM Right Deltoid 0.5 mL [id number] 01/27/27 [id number] [employer] VIS Given Date VIS Provided VIS Publication Date 03/13/25 Single Vaccine 24 Eligibility Eligibility Date Funding Source Not Applicable Coding Level of Care Code OB Routine Diagnoses Multigravida of advanced maternal age in second trimester O09.522 Trimester: second trimester Encounter for supervision of other normal in second trimester Z34.82 Normal : other normal Trimester: second trimester History of atony of uterus Z87.59 29 weeks gestation of Z3A.29 Weeks of gestation: 29 weeks Assessment and Plan Assessment and Plan (1) AMA (advanced maternal age) multigravida 35+: Status: Acute Qualifiers: Trimester: second trimester Qualified Code(s): O09.522 - Supervision of elderly multigravida, second trimester Comment: growth at 36 weeks. deliver 39 weeks (2) Supervision of normal : Status: Acute Qualifiers: Normal : other normal Trimester: second trimester Qualified Code(s): Z34.82 - Encounter for supervision of other normal , second trimester Comment: PRR, , BRITANY 05/24/25 girl PC Lisa, Richi (3) History of atony of uterus: Status: Acute Comment: with hemorrhage (4) : Status: Acute Qualifiers: Weeks of gestation: 29 weeks Qualified Code(s): Z3A.29 - 29 weeks gestation of Comment: NIPt low risk, previous Carrier Neg. Orders: Orders POC Urinalysis 2 Dip (Clinic) Today Tdap Immunization Today Z23 - Encounter for immunization 03/13/25 0943 <Electronically signed by Calista britton MD> Date _ Calista Davis MD Cosigner Signature: Date (if applicable) CC: ~ [facility] Work Phone: Reason for referral (narrative)No reason for referral information availableWKind[facility] Work Phone: Summary Purpose Family History No Family History Records Found Relationship Condition Age at Onset Recorded Date/T ehsan Not Specified Diabetes mellitus Unknown Cardiac disease Unknown Malignant neoplasm Unknown Hypertension Unknown Relationship Condition Age at Onset Recorded Date/T ehsan grandfather Malignant neoplasm 60 Hypertension Unknown mother Diabetes mellitus Unknown grandfather Cardiac disease Unknown father Hypertension Unknown grandmother Hypertension Unknown Advance Directives No Advanced Directives Records Found Advance Directive Response Recorded Date/ Time Living Will No November 26, 2021 10:36pm Power of Global Climate Change Analyst No November 26 10:36pm Chief Complaint and Reason for Visit Chief Complaint 12 WK OB 16 WK OB 20 WK OB 24 WK OB 28WK OB / GLUCOSE Reason for Visit Antepartum asymptoma tic bacteriuria Supervision of normal Antepartum asymptomatic bacteriuria COVID-19 affecting in second trimester Supervision of normal Antepartum asymptomatic bacteriuria COVID-19 affecting in second trimester Low-lying placenta in second trimester Supervision of normal Antepartum asymptomatic bacteriuria COVID-19 affecting in second trimester Low-lying placenta in second trimester Supervision of normal COVID-19 affecting in second trimester Supervision of normal Chief Complaint 16 WK OB 20 WK OB 24 WK OB 28WK OB / GLUCOSE 30 WK OB 32 WEEKS GROWTH 32 WK OB Reason for Visit Antepartum asymptoma tic bacteriuria COVID-19 affecting in second trimester Supervision of normal Antepartum asymptomatic bacteriuria COVID-19 affecting in second trimester Low-lying placenta in second trimester Supervision of normal Antepartum asymptomatic bacteriuria COVID-19 affecting in second trimester Low-lying placenta in second trimester Supervision of normal COVID-19 affecting in second trimester Supervision of normal Antepartum asymptomatic bacteriuria COVID-19 affecting in second trimester Low-lying placenta in second trimester Supervision of normal Antepartum asymptomatic bacteriuria COVID-19 affecting in second trimester Low-lying placenta in second trimester Supervision of normal Chief Complaint 20 WK OB 24 WK OB 28WK OB / GLUCOSE 30 WK OB 32 WEEKS GROWTH 32 WK OB 34 WK OB 36 WEEKS GROWTH 36 WK OB Reason for Visit Antepartum asymptoma tic bacteriuria COVID-19 affecting in second trimester Low-lying placenta in second trimester Supervision of normal Antepartum asymptomatic bacteriuria COVID-19 affecting in second trimester Low-lying placenta in second trimester Supervision of normal COVID-19 affecting in second trimester Supervision of normal Antepartum asymptomatic bacteriuria COVID-19 affecting in second trimester Low-lying placenta in second trimester Supervision of normal Antepartum asymptomatic bacteriuria COVID-19 affecting in second trimester Low-lying placenta in second trimester Supervision of normal Antepartum asymptomatic bacteriuria COVID-19 affecting in second trimester Low-lying placenta in second trimester Supervision of normal Antepartum asymptomatic bacteriuria COVID-19 affecting in second trimester Low-lying placenta in second trimester Supervision of normal Chief Complaint 24 WK OB 28WK OB / GLUCOSE 30 WK OB 32 WEEKS GROWTH 32 WK OB 34 WK OB 36 WEEKS GROWTH 36 WK OB 37 WK OB 38 WK OB 39 WK OB 40 WK OB, discuss induction Reason for Visit Antepartum asymptoma tic bacteriuria COVID-19 affecting in second trimester Low-lying placenta in second trimester Supervision of normal COVID-19 affecting in second trimester Supervision of normal Antepartum asymptomatic bacteriuria COVID-19 affecting in second trimester Low-lying placenta in second trimester Supervision of normal Antepartum asymptomatic bacteriuria COVID-19 affecting in second trimester Low-lying placenta in second trimester Supervision of normal Antepartum asymptomatic bacteriuria COVID-19 affecting in second trimester Low-lying placenta in second trimester Supervision of normal Antepartum asymptomatic bacteriuria COVID-19 affecting in second trimester Low-lying placenta in second trimester Supervision of normal Antepartum asymptomatic bacteriuria COVID-19 affecting in second trimester Low-lying placenta in second trimester Supervision of normal Antepartum asymptomatic bacteriuria COVID-19 affecting in second trimester Low-lying placenta in second trimester Supervision of normal Antepartum asymptomatic bacteriuria COVID-19 affecting in second trimester Low-lying placenta in second trimester Supervision of normal Antepartum asymptomatic bacteriuria COVID-19 affecting in second trimester Low-lying placenta in second trimester Supervision of normal Chief Complaint 24 WK OB 28WK OB / GLUCOSE 30 WK OB 32 WEEKS GROWTH 32 WK OB 34 WK OB 36 WEEKS GROWTH 36 WK OB 37 WK OB 38 WK OB 39 WK OB 40 WK OB, discuss induction INDUCTION VAGINAL DELIVERY INDUCTION VAGINAL DELIVERY VAGINAL DELIVERY Reason for Visit Antepartum asymptoma tic bacteriuria COVID-19 affecting in second trimester Low-lying placenta in second trimester Supervision of normal COVID-19 affecting in second trimester Supervision of normal Antepartum asymptomatic bacteriuria COVID-19 affecting in second trimester Low-lying placenta in second trimester Supervision of normal Antepartum asymptomatic bacteriuria COVID-19 affecting in second trimester Low-lying placenta in second trimester Supervision of normal Antepartum asymptomatic bacteriuria COVID-19 affecting in second trimester Low-lying placenta in second trimester Supervision of normal Antepartum asymptomatic bacteriuria COVID-19 affecting in second trimester Low-lying placenta in second trimester Supervision of normal Antepartum asymptomatic bacteriuria COVID-19 affecting in second trimester Low-lying placenta in second trimester Supervision of normal Antepartum asymptomatic bacteriuria COVID-19 affecting in second trimester Low-lying placenta in second trimester Supervision of normal Antepartum asymptomatic bacteriuria COVID-19 affecting in second trimester Low-lying placenta in second trimester Supervision of normal Antepartum asymptomatic bacteriuria COVID-19 affecting in second trimester Low-lying placenta in second trimester Supervision of normal atony of uterus with hemorrhage Vaginal delivery Antepartum asymptomatic bacteriuria COVID-19 affecting in second trimester Low-lying placenta in second trimester Supervision of normal Chief Complaint Admit Date NOB LMP 08/17October 19, 2024 8:39a m Reason for Visit Admit Date AMA (advanced maternal age) multigravida 35+ October 19, 2024 8:39am History of atony of uterus Ma y 2024 8:39am October 19, 2024 8:39a m Supervision of normal September 8:39am Chief Complaint Admit Date NOB LMP 08/17October 19, 2024 8:39a m 13wk OB November 20, 2024 12:5 0pm Reason for Visit Admit Date AMA (advanced maternal age) multigravida 35+ October 19, 2024 8:39am History of atony of uterus Ma y 2024 8:39am October 19, 2024 8:39a m Supervision of normal September 8:39am AMA (advanced maternal age) multigravida 35+ November 20, 2024 12:50pm History of atony of uterus Ju ne 2024 12:50pm November 20, 2024 12:5 0pm Supervision of normal October 12:50pm Chief Complaint Admit Date NOB LMP 08/17October 19, 2024 8:39a m 13wk OB November 20, 2024 12:5 0pm 18wk ob December 19, 2024 9:13 am Reason for Visit Admit Date AMA (advanced maternal age) multigravida 35+ October 19, 2024 8:39am History of atony of uterus Ma y 2024 8:39am October 19, 2024 8:39a m Supervision of normal September 8:39am AMA (advanced maternal age) multigravida 35+ November 20, 2024 12:50pm History of atony of uterus Ju ne 2024 12:50pm November 20, 2024 12:5 0pm Supervision of normal October 12:50pm AMA (advanced maternal age) multigravida 35+ December 19, 2024 9:13am History of atony of uterus Ju ly 2024 9:13am December 19, 2024 9:13 am Supervision of normal November 9:13am Chief Complaint Admit Date NOB LMP 08/17October 19, 2024 8:39a m 13wk OB November 20, 2024 12:5 0pm 18wk ob December 19, 2024 9:13 am 22wk ob January 16, 2025 8: 37am Reason for Visit Admit Date AMA (advanced maternal age) multigravida 35+ October 19, 2024 8:39am History of atony of uterus Ma y 2024 8:39am October 19, 2024 8:39a m Supervision of normal September 8:39am AMA (advanced maternal age) multigravida 35+ November 20, 2024 12:50pm History of atony of uterus Ju ne 2024 12:50pm November 20, 2024 12:5 0pm Supervision of normal October 12:50pm AMA (advanced maternal age) multigravida 35+ December 19, 2024 9:13am History of atony of uterus Ju ly 2024 9:13am December 19, 2024 9:13 am Supervision of normal November 9:13am AMA (advanced maternal age) multigravida + January 16, 2025 8:37am History of atony of uterus [place] 2024 8:37am January 16, 2025 8: 37am Supervision of normal December 292024 8:37am Chief Complaint Admit Date NOB LMP 08/17October 19, 2024 8:39a m 13wk OB November 20, 2024 12:5 0pm 18wk ob December 19, 2024 9:13 am 22wk ob January 16, 2025 8: 37am 26wk ob/glucose February 12, 2025 8:36am Reason for Visit Admit Date AMA (advanced maternal age) multigravida 35+ October 19, 2024 8:39am History of atony of uterus Ma y 2024 8:39am October 19, 2024 8:39a m Supervision of normal September 8:39am AMA (advanced maternal age) multigravida 35+ November 20, 2024 12:50pm History of atony of uterus Ju ne 2024 12:50pm November 20, 2024 12:5 0pm Supervision of normal October 12:50pm AMA (advanced maternal age) multigravida 35+ December 19, 2024 9:13am History of atony of uterus Ju ly 2024 9:13am December 19, 2024 9:13 am Supervision of normal November 9:13am AMA (advanced maternal age) multigravida + January 16, 2025 8:37am History of atony of uterus [place] 2024 8:37am January 16, 2025 8: 37am Supervision of normal December [id number] 8:37am AMA (advanced maternal age) multigravida 35+ February 12, 2025 8:36am History of atony of uterus Se ptember 2024 8:36am February 12, 2025 8:36am Supervision of normal [place] r 2024 8:36am Chief Complaint Admit Date 13wk OB November 20, 2024 12:5 0pm 18wk ob December 19, 2024 9:13 am 22wk ob January 16, 2025 8: 37am 26wk ob/glucose February 12, 2025 8:36am Reason for Visit Admit Date AMA (advanced maternal age) multigravida 35+ November 20, 2024 12:50pm History of atony of uterus Ju 2024 12:50pm November 20, 2024 12:5 0pm Supervision of normal October 12:50pm AMA (advanced maternal age) multigravida 35+ December 19, 2024 9:13am History of atony of uterus Ju 2024 9:13am December 19, 2024 9:13 am Supervision of normal November 9:13am AMA (advanced maternal age) multigravida 35+ January 16, 2025 8:37am History of atony of uterus Au [facility] 2024 8:37am January 16, 2025 8: 37am Supervision of normal December [id number] 8:37am AMA (advanced maternal age) multigravida 35+ February 12, 2025 8:36am History of atony of uterus Se ptember 2024 8:36am February 12, 2025 8:36am Supervision of normal Sept[place] r 2024 8:36am Chief Complaint Admit Date 18wk ob December 19, 2024 9:13 am 22wk ob January 16, 2025 8: 37am 26wk ob/glucose February 12, 2025 8:36am 30wk ob March 13, 2025 9 :18am Reason for Visit Admit Date AMA (advanced maternal age) multigravida 35+ December 19, 2024 9:13am History of atony of uterus Ju ly 2024 9:13am December 19, 2024 9:13 am Supervision of normal November 9:13am AMA (advanced maternal age) multigravida 35+ January 16, 2025 8:37am History of atony of uterus [place] 2024 8:37am January 16, 2025 8: 37am Supervision of normal December [id number] 8:37am AMA (advanced maternal age) multigravida 35+ February 12, 2025 8:36am History of atony of uterus Se ptember 2024 8:36am February 12, 2025 8:36am Supervision of normal Septembe r 2024 8:36am AMA (advanced maternal age) multigravida 35+ March 13, 2025 9:18am History of atony of uterus Oc to[place] 2024 9:18am March 13, 2025 9 :18am Supervision of normal March 13, 2025 9:18am Additional Source Comments INFORMATION SOURCE (unrecogn ized section and content) DATE CREATED AUTHOR 11/22/2017 [facility] DATE CREATED AUTHOR AUTHOR'S ORGANIZ ATION 08/05/2021 [facility] DATE CREATED AUTHOR AUTHOR'S ORGANIZ ATION 01/12/2025 [facility] DATE CREATED AUTHOR AUTHOR'S ORGANIZ ATION 04/10/2025 [facility] Goals (unrecognized section and content) Type Care Experience Labor Preferences-CB /BF classes: encouragedlabor support person: [facility] preferences: pain management options preferred: limited intervention if possiblecut cord/dad catch: yes!!: yesPP control planned: discusseddiscussed possible routes of delivery and associated risks: []special requests: [] Care Experience Labor Preferences-CB /BF classes: NOlabor support person: [facility] intervention preferences: []pain management options preferred: epiduralcut cord/dad catch: yesbreastfeeding: yesPP control planned: []discussed possible routes of delivery and associated risks: []special requests: [] Care Teams (unrecognized sec tion and content) Team Status: Active Member Role Status Dates No Primary Care Physician Primary Care Provider Active Team Status: Inactive Member Role Status Dates No Primary Care Physician Primary Care Provider Active Start: October 19, 2024 End: October 19, 2024 No Primary Care Physician Referring Provider Active Start: October 19, 2024 End: October 19, 2024 Nneka Salcido CNM Attending Provider Active S tart: October 19, 2024 End: October 19, 2024 Team Status: Inactive Member Role Status Dates No Primary Care Physician Primary Care Provider Active Start: October 19, 2024 End: October 19, 2024 Nneka Salcido CNM Attending Provider Active S tart: October 19, 2024 End: October 19, 2024 Nneka Salcido CNM Referring Provider Active S tart: October 19, 2024 End: October 19, 2024 Team Status: Inactive Member Role Status Dates No Primary Care Physician Primary Care Provider Active Start: October 26, 2024 End: October 26, 2024 Dr. Manasa Sommer DO Attending Provider Activ e Start: October 26, 2024 End: October 26, 2024 Dr. Manasa Sommer DO Referring Provider Activ e Start: October 26, 2024 End: October 26, 2024 Team Status: Inactive Member Role Status Dates No Primary Care Physician Primary Care Provider Active Start: November 20, 2024 End: November 20, 2024 No Primary Care Physician Referring Provider Active Start: November 20, 2024 End: November 20, 2024 Dr. Calista Davis MD Attending Provider Active Start: November 20, 2024 End: November 20, 2024 Team Status: Active Member Role/Relationship Status Dates No Primary Care Physician Primary Care Provider Active Team Status: Inactive Member Role/Relationship Status Dates No Primary Care Physician Primary Care Provider Active Start: October 19, 2024 End: October 19, 2024 No Primary Care Physician Referring Provider Active Start: October 19, 2024 End: October 19, 2024 Nneka Salcido CNM Attending Provider Active S tart: October 19, 2024 End: October 19, 2024 Team Status: Inactive Member Role/Relationship Status Dates No Primary Care Physician Primary Care Provider Active Start: October 19, 2024 End: October 19, 2024 Nneka Salcido CNM Attending Provider Active S tart: October 19, 2024 End: October 19, 2024 Nneka Salcido CNM Referring Provider Active S tart: October 19, 2024 End: October 19, 2024 Team Status: Inactive Member Role/Relationship Status Dates No Primary Care Physician Primary Care Provider Active Start: October 26, 2024 End: October 26, 2024 Dr. Manasa Sommer , DO Attending Provider Activ e Start: October 26, 2024 End: October 26, 2024 Dr. Manasa Sommer , DO Referring Provider Activ e Start: October 26, 2024 End: October 26, 2024 Team Status: Inactive Member Role/Relationship Status Dates No Primary Care Physician Primary Care Provider Active Start: November 20, 2024 End: November 20, 2024 No Primary Care Physician Referring Provider Active Start: November 20, 2024 End: November 20, 2024 Dr. Calista Davis MD Attending Provider Active Start: November 20, 2024 End: November 20, 2024 Team Status: Inactive Member Role/Relationship Status Dates No Primary Care Physician Primary Care Provider Active Start: December 19, 2024 End: December 19, 2024 No Primary Care Physician Referring Provider Active Start: December 19, 2024 End: December 19, 2024 Dr. Manasa Sommer , Attending Provider Activ e Start: December 19, 2024 End: December 19, 2024 Team Status: Inactive Member Role/Relationship Status Dates No Primary Care Physician Primary Care Provider Active Start: January 16, 2025 End: January 16, 2025 No Primary Care Physician Referring Provider Active Start: January 16, 2025 End: January 16, 2025 Winter Sheffield NP, ROVERTO-C Attending Provider Active Start: January 16, 2025 End: January 16, 2025 Team Status: Inactive Member Role/Relationship Status Dates No Primary Care Physician Primary Care Provider Active Start: February 12, 2025 End: February 12, 2025 No Primary Care Physician Referring Provider Active Start: February 12, 2025 End: February 12, 2025 Nneka Salcido CNM Attending Provider Active S tart: February 12, 2025 End: February 12, 2025 Team Status: Active Member Role/Relationship Status Dates No Primary Care Physician Primary Care Provider Active Start: February 12, 2025 Dr. Manasa Sommer DO Attending Provider Active Start: January Dr. Manasa Sommer DO Referring Provider Active Start: January Team Status: Active Member Role/Relationship Status Dates No Primary Care Physician Primary care physician Activ e Team Status: Inactive Member Role/Relationship Status Dates No Primary Care Physician Primary care physician Activ e Start: November 20, 2024 End: November 20, 2024 No Primary Care Physician Referring Provider Active Start: November 20, 2024 End: November 20, 2024 Dr. Calista Davis MD Attending physician Active Start: November 20, 2024 End: November 20, 2024 Team Status: Inactive Member Role/Relationship Status Dates No Primary Care Physician Primary care physician Activ e Start: December 19, 2024 End: December 19, 2024 No Primary Care Physician Referring Provider Active Start: December 19, 2024 End: December 19, 2024 Dr. Manasa Sommer DO Attending physician Acti ve Start: December 19, 2024 End: December 19, 2024 Team Status: Inactive Member Role/Relationship Status Dates No Primary Care Physician Primary care physician Activ e Start: January 16, 2025 End: January 16, 2025 No Primary Care Physician Referring Provider Active Start: January 16, 2025 End: January 16, 2025 Winter Sheffield NP, BUSINESS INTELLIGENCE REPORTING ANALYST-C Attending physician Active Start: January 16, 2025 End: January 16, 2025 Team Status: Inactive Member Role/Relationship Status Dates No Primary Care Physician Primary care physician Activ e Start: February 12, 2025 End: February 12, 2025 No Primary Care Physician Referring Provider Active Start: February 12, 2025 End: February 12, 2025 Nneka Salcido CNM Attending physician Active Start: February 12, 2025 End: February 12, 2025 Team Status: Inactive Member Role/Relationship Status Dates No Primary Care Physician Primary care physician Activ e Start: February 12, 2025 End: February 12, 2025 Dr. Manasa Sommer DO Attending physician Active Start: January End: February 12, 2025 Dr. Manasa Sommer DO Referring Provider Active Start: January End: February 12, 2025 Team Status: Inactive Member Role/Relationship Status Dates No Primary Care Physician Primary care physician Activ e Start: December 19, 2024 End: December 19, 2024 No Primary Care Physician Referring Provider Active Start: December 19, 2024 End: December 19, 2024 Dr. Manasa Sommer DO Attending physician Acti ve Start: December 19, 2024 End: December 19, 2024 Team Status: Inactive Member Role/Relationship Status Dates No Primary Care Physician Primary care physician Activ e Start: January 16, 2025 End: January 16, 2025 No Primary Care Physician Referring Provider Active Start: January 16, 2025 End: January 16, 2025 Winter Sheffield NP, BUSINESS INTELLIGENCE REPORTING ANALYST-C Attending physician Active Start: January 16, 2025 End: January 16, 2025 Team Status: Inactive Member Role/Relationship Status Dates No Primary Care Physician Primary care physician Activ e Start: February 12, 2025 End: February 12, 2025 No Primary Care Physician Referring Provider Active Start: February 12, 2025 End: February 12, 2025 Nneka Salcido CNM Attending physician Active Start: February 12, 2025 End: February 12, 2025 Team Status: Inactive Member Role/Relationship Status Dates No Primary Care Physician Primary care physician Activ e Start: February 12, 2025 End: February 12, 2025 Dr. Manasa Sommer DO Attending physician Active Start: January End: February 12, 2025 Dr. Manasa Sommer DO Referring Provider Active Start: January End: February 12, 2025 Team Status: Inactive Member Role/Relationship Status Dates No Primary Care Physician Primary care physician Activ e Start: March 13, 2025 End: March 13, 2025 No Primary Care Physician Referring Provider Active Start: March 13, 2025 End: March 13, 2025 Dr. Calista Davis MD Attending physician Active Start: March 13, 2025 End: March 13, 2025 FOR RECORDS PERTAINING TO PATIENTS WHO ARE OR HAVE BEEN ENROLLED IN A CHEMICAL DEPENDENCY/SUBSTANCEABUSE PROGRAM, SOME INFORMATION MAY BE OMITTED. This clinical summary was aggregated from multiple sources. Caution should be exercised in using it in the provision of clinical care. This summary normalizes information from multiple sources, and as a consequence, information in this document may materially change the coding, format and clinical context of patient data. In addition, data may be omitted in some cases. CLINICAL DECISIONS SHOULD BE BASED ON THE PRIMARY CLINICAL RECORDS. [facility] 24h00 [facility]. provides no warranty or guarantee of the accuracy or completeness of information in this document.
== END | disposition home or self-care (01) ==
LOC: US 11:51
PROVIDERS: Referring Provider Obstetrics & Gynecology; Visit Provider Obstetrics & Gynecology
DX: O09.522 Supervision of elderly multigravida, second trimester (principal); Z3A.00 Weeks of gestation of pregnancy not specified
CPT/HCPCS: 76816

== ENCOUNTER → 2025-04-30 | Outpatient (CLI) | payer BC, SELFPAY | END | disposition home or self-care (01) | LOC: LABSPEC 15:35 | PROVIDERS: Visit Provider Advanced Practice Midwife | DX: Z34.93 Encounter for supervision of normal pregnancy, unspecified, third trimester (principal); Z3A.36 36 weeks gestation of pregnancy | CPT/HCPCS: 87077; 87081; 87186 ==

== ENCOUNTER 2025-05-14 12:07 | Inpatient (IN) | payer BC, SELFPAY ==
[2025-05-14] VITALS (31 sets, daily range): BP systolic 85–121; BP diastolic 49–83; PULSE 68–110; RESP 18–20; TEMP 36.8–37.2; O2SAT 94–100; BMI 26.2
--- NOTE | 2025-05-14 10:25 | US_ITS ---
PROCEDURE: OB LIMITED WITH BIOMETRICS 05/14/2025 REASON FOR EXAM: MEASURING 35WKS AND IS CURRENTLY 38.4 WK TECHNIQUE: Procedure Code: [id number] Modality: US Procedure: OB LIMITED WITH BIOMETRICS COMPARISON: April 26, 2025. FINDINGS Number: 1 Position: Vertex Placental Position: Posterior and not low-lying Placental Abnormalities: No evidence of previa. DIMENSIONS: Biparietal Diameter: 8.5 cm: 34 weeks and 2 days: 1 percentile/ Head Circumference: 32.8 cm: 37 weeks and 2 days: 11 percentile/ Abdominal Circumference: 31.6 cm: 35 weeks and 4 days: 4 percentile/ Femur Length: 6.6 cm: 33 weeks and 5 days: <1 percentile/ ESTIMATED WEIGHT: 2554 g plus/-303 g ESTIMATED WEIGHT PERCENTILE (24+ weeks): 4th percentile. ESTIMATED GESTATIONAL AGE: Baseline: 38 weeks and 4 days By Ultrasound: 35 weeks and 3 days ESTIMATED DATE OF DELIVERY: Baseline: May 24, 2025 By Ultrasound: June 15, 2025 BIOPHYSICAL ASSESSMENT: Amniotic Fluid Volume: 4.1 cm Amniotic Fluid Index: 11.1 cm (8-24 cm normal range) Cardiac Motion: 136 beats per minute (average) Trunk and Limb Motion: Present. US/OB Limited With Biometrics IMPRESSION: Intrauterine growth retardation. The biparietal diameter as well as the abdominal circumference and femur length are below the 5th percentile. Reading Location: [id number]
--- NOTE | 2025-05-14 12:28 | HP.PCM.OB_ITS ---
HPI - General General Date of Admission: 05/14/25 Date of Service: 05/14/25 HPI Narrative BARRIE WEBSTER, is a 40 F at 38.4 weeks who presents to unit from office for growth scan for uterine size less than dates. Overall growth is at 4% with AC in 4%. MARJORIE normal at 11. Admission orders given for pitocin/AROM IOL for severe IUGR Maternal Data Information BRITANY Calculator Estimated Delivery Date Method Current WG Current Estimate 05/24/25 LMP (Certain) 38w 4d Other Estimates 05/25/25 Ultrasound #1 38w 3d Final BRITANY: 05/24/25 Final BRITANY Source: US >20 weeks Gestational age: 38.4 [facility] Medical History atony of uterus with hemorrhage Vaginal delivery Low-lying placenta in second trimester Home Medications ?Medication ?Instructions ?Recorded ?Last Taken ?Type multivitamin no.47-iron fum 27 1 cap PO DAILY Check wi th primary 03/30/21 05/14/25 08:00 History mg-folate no.1 1 mg-dha 300 mg doctor 1 cap capsule (PNV-DHA) Allergy/AdvReac Type Severity Reaction Status Date / Time No Known Allergies Allergy Verified 05/14/25 11:07 Family History Grandfather Cancer, Onset Age: 60 Maternal skin cancer Hypertension Maternal & Paternal Mother Diabetes Hypertension Grandfather Heart disease Maternal Father Hypertension Grandmother Hypertension Maternal & Paternal Surgical History [place] teeth extracted Social History adopted: No household members: spouse and children housing: house number of children: 1 current occupational status: unemployed current occupation: [employer] pets and animals: Yes (Avoid litterbox) pets and animals: cat(s) and dog(s) history of recent travel: Yes (- September) out of state: Yes out of country: No sexually active: Yes Smoking Status: Never smoker second hand exposure: No alcohol intake: never substance use type: does not use well-balanced diet: daily or most days caffeine: Yes Type: coffee Number of servings: 1 eating out: 1-3 times/week during the past year weight has: increased > 10 lbs what type of physical activity do you participate in: walking, bicycling and other details: strength training frequency: daily duration: 45-60 minutes/day manuel/jain: [employer] seatbelt use: always do you feel safe at home: Yes 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 Date Name GA/Weeks Outcome Route Bth Weight Infant Gen Labor Lgth Anesthesia Del Locatn Provider FOB 11/27/21 Lisa 41 live - full term 7lbs 9oz Female ep idural [facility] Dr. Krystal Stoddard Delivery Date: 11/27/21 Last Updated by: Lianet Caceres hemorrhage, atony of uterus Visit Details Expected Delivery Route/Plan Labor Preferences- CB/BF classes: NO labor support person: Richi labor intervention preferences: [] pain management options preferred: epidural cut cord/dad catch: yes : yes PP control planned: [] discussed possible routes of delivery and associated risks: [] special requests: [] Plans Covid status: [] Flu vaccine: [] Tdap vaccine: [] Rhogam: na LARC form signed: [] Problem list reviewed and updated with the most current plan of care details and appropriate orders placed. Relevant counseling for the gestational age provided. Continue routine care and follow up unless otherwise noted in visit notes/problem list details OB Flowsheet Initial Weight: 138 lb Date -?-?-?-?-?-?-?-?-?-?-?-?- EGA Weight BP Urine Prot -?-?-?-?-?-?-?-?-?-?-?-?- Glucose FHR FuHt Pres Dilation -?-?-?-?-?-?-?-?-?-?-?-?- Effaced St Visit Note 10/19/24 -?-?-?-?-?-?-?-?-?-?-?-?- 9w 0d 138 lb (+0 oz) 107/69 -?-?-?-?-?-?-?-?-?-?-?-?- 179 -?-?-?-?-?-?-?-?-?-?-?-?- KW- CRL cons trinidad brar. Accepts NIPT. 11/20/24 -?-?-?-?-?-?-?-?-?-?-?-?- 13w 4d 139 lb 2 oz (+1 lb 2 oz) 99/56 Negative -?-?-?-?-?-?-?-?-?-?-?-?- Negative 150 -?-?-?-?-?-?-?-?-?-?-?-?- SM- no vb crampi ng 12/19/24 -?--?-?-?-?-?-?-?-?-?-?-?- 17w 5d 144 lb 8 oz (+6 lb 8 oz) 98/65 Negative -?-?-?-?-?-?-?-?-?-?-?-?- Negative 161 -?-?-?-?-?-?-?-?-?-?-?-?- JV- no lof, vagi nal bleeding, or dec fm. has anatomy scan on 12/2701/16/25 -?-?-?-?-?-?-?-?-?-?-?-?- 21w 5d 145 lb 5 oz (+7 lb 5 oz) 98/60 Negative -?-?-?-?-?-?-?-?-?-?-?-?- Negative 154 -?-?-?-?-?-?-?-?-?-?-?-?- MH-No VB. Lul Whitman Denies concerns 02/12/25 -?-?-?-?-?-?--?-?-?-?-?-?- 25w 4d 150 lb 7 oz (+12 lb 7 oz) 105/73 Negative -?-?-?-?-?-?-?-?-?-?-?-?- Negative 145 25 -?-?-?-?-?-?-?-?-?-?-?-?- KW- no vb/lof/ct x. good regla. LARC today. glucose today. 03/13/25 -?-?-?-?-?-?-?-?-?-?-?-?- 29w 5d 155 lb 1 oz (+17 lb 1 oz) 104/53 Negative -?-?-?-?-?-?-?-?-?-?-?-?- Negative 140 30 -?-?-?-?-?-?-?-?-?-?-?-?- SM- no vb lof go od fm n oregular ctx 03/27/25 -?-?-?-?-?-?-?-?-?--?-?-?- 31w 5d 159 lb 4 oz (+21 lb 4 oz) 107/69 Negative -?-?-?-?-?-?-?-?-?-?-?-?- Negative 145 32 Breech -?-?-?-?-?-?-?-?-?-?-?--?- JV-no lof, vagin al bleeding, or dec fm. feels breech today. plan 36 week growth scan. 04/09/25 -?-?-?-?-?-?-?-?-?-?-?-?- 33w 4d 156 lb 5 oz (+18 lb 5 oz) 95/62 -?-?-?-?-?-?-?-?-?-?-?-?- 135 34 -?-?-?-?-?-?-?-?-?-?-?-?- KW- no vb/lof/ct x. good fm. 36 week US scheduled. 04/22/25 -?-?-?-?-?-?-?-?-?-?-?-?- 35w 3d 159 lb 4 oz (+21 lb 4 oz) 104/69 Negative -?-?-?-?-?-?-?-?-?-?-?-?- Negative 136 35 -?-?-?-?-?-?-?-?-?-?-?-?- KV- Good FM. Occ asional BH. No LOF or VB. US scheduled 04/26. 04/30/25 -?-?-?-?-?-?-?-?-?-?-?-?- 36w 4d 159 lb 8 oz (+21 lb 8 oz) 100/68 Negative -?-?-?-?-?-?-?-?-?-?-?-?- Negative 135 35 Cephalic 1 -?-?-?-?-?-?-?-?-?-?-?-?- 70 -2 KW- no vb/ lof/ctx. good fm. GBS today. US reviewed. 05/06/25 -?-?-?-?-?-?-?-?-?-?-?-?- 37w 3d 159 lb (+21 lb) 115/81 Negative -?-?-?-?-?-?-?-?-?-?-?-?- Negative 130 37 Cephalic 3 -?-?-?-?-?-?-?-?-?-?-?-?- 60 -2 SM- n ovb lof good fm n oreuglar ctx, consider membrane sweep next week 05/14/25 -?-?-?-?-?-?-?-?-?-?-?-?- 38w 4d 159 lb 3 oz (+21 lb 3 oz) 104/70 Negative -?-?-?-?-?-?-?-?-?-?-?-?- Negative 130 35 Cephalic 4 -?-?-?-?-?-?-?-?-?-?--?-?- 70 -2 KW- no vb/ lof/ctx. good fm MARJORIE 9 in the office. but sent to [facility] for growth US NST FHR Rate Baby A Baseline: 120 Variability:: Moderate Accelerations:: 15 x 15 Decelerations:: None NST Reactive:: Yes FHR Category:: Category I Uterine Activity:: none ROS Constitutional Constitutional: Denies change in weight, fatigue, fever(s), headache(s), poor appetite or weakness Eyes Eyes: Denies blurry vision, change in vision, floaters, seeing flashes or spots in vision ENT HEENT: Denies dizziness, headache(s), loss taste/smell or sore throat Cardiovascular Cardiovascular: Denies chest pain, dizziness, dyspnea, irregular heart rhythm, lightheadedness, palpitations or rapid heart rate Respiratory/Chest Respiratory/Chest: Denies change in mental status, chest tightness, cough, dyspnea or breast pain Gastrointestinal Gastrointestinal: Denies anorexia, chewing difficulty, constipation, diarrhea or weight changes Genitourinary Genitourinary: Denies difficulty urinating, dysuria, flank pain, genital pain, urinary frequency or urinary urgency Musculoskeletal Musculoskeletal: Denies back pain, difficulty walking, extremity pain, joint pain, muscle cramps or muscle weakness Integumentary Integumentary: Denies lesions or unusual bruising Neurologic Neurologic: Denies abnormal movements, abnormal speech, dizziness, numbness, seizure-like activity, syncope or weakness Psychiatric Psychiatric: Denies behavioral changes, change in appetite, confusion, depression, homicidal ideation, suicidal ideation or suicidal thoughts Endocrine Endocrinology: Denies excessive sweating, polydipsia or polyuria Hematologic/Lymphatic Hematologic/Lymphatic: Denies anemia Allergic/Immunologic Allergic/Immunologic: Denies itchy eyes, lip swelling, throat swelling, tongue swelling or wheezing Vital Signs Vital Signs Vital Signs: 05/14/25 10:32 05/14/25 10:32 05/14/25 10:33 Temperature Temperature Source Pulse Rate 68 71 Respiratory Rate Blood Pressure 104/59 L BP Systolic 104 BP Diastolic 59 Pulse Ox 05/14/25 10:33 05/14/25 10:33 05/14/25 10:33 Temperature Temperature Source Temporal Pulse Rate Respiratory Rate 18 Blood Pressure BP Systolic BP Diastolic Pulse Ox 99 05/14/25 10:33 05/14/25 10:33 05/14/25 10:33 Temperature 98.8 F Temperature Source Temporal Pulse Rate Respiratory Rate 18 Blood Pressure BP Systolic BP Diastolic Pulse Ox 05/14/25 10:33 Temperature 98.8 F Temperature Source Pulse Rate Respiratory Rate Blood Pressure BP Systolic BP Diastolic Pulse Ox Weight Weight: 157 lb 3.033 oz Body Mass Index (BMI) 26.2 Physical Exam Const alert, oriented x3 and no apparent distress General Appearance: cooperative Orientation / Consciousness: awake HEENT normocephalic Neck full ROM Lymph Lymphatic: no lymphadenopathy noted Chest inspection of chest normal Resp normal respiratory effort and normal air movement Effort and Inspection: able to speak in complete sentences and symmetric chest movement GI soft to palpation and non-tender Inspection: gravid Palpation: soft; Negative for tender external exam normal Back/Spine normal to inspection Extremity normal to inspection and full ROM Skin no rashes or lesions noted Psych mental status grossly normal Appearance: grossly normal Speech: normal speech Labs Labs Labs: Blood Type O POSITIVE Antibody Screen NEGATIVE Hct, (37-47) 35.2 % L Hgb, (12.0-15.0) 11.7 g/dL L Obstetrics Ultrasound Syphilis Total Ab, (Nonreactive) Nonreactive Rubella IgG Antibody, (Nonreactive) REAC Hep Bs Antigen, (Nonreactive) Nonreactive Hepatitis C Antibody, (Nonreactive) Nonreactive Chlamydia DNA (BEATRIS), (Negative) Negative N.gonorrhoeae DNA (BEATRIS), (Negative) Negative HIV 1&2 Antibody, (Nonreactive) Nonreactive Glucose 1 Hr 50 gm, (70-140) 76 mg/dL Assessment & Plan (1) Positive GBS test: COMMENT: treat in labor (2) AMA (advanced maternal age) multigravida 35+: QUALIFIERS: Trimester: second trimester Qualified Code(s): O09.522 - Supervision of elderly multigravida, second trimester COMMENT: growth at 36 weeks. deliver 39 weeks (3) Supervision of normal : QUALIFIERS: Normal : other normal Trimester: second trimester Qualified Code(s): Z34.82 - Encounter for supervision of other normal , second trimester COMMENT: PRR, , BRITANY 05/24/25 girl PC Lisa, Richi (4) History of atony of uterus: COMMENT: with hemorrhage (5) : QUALIFIERS: Weeks of gestation: 38 weeks Qualified Code(s): Z3A.38 - 38 weeks gestation of COMMENT: NIPt low risk, previous Carrier Neg. (6) Encounter for induction of labor: PLAN: Patient presents IOL, plan management for with pitocin/AROM. Pain management: plans epidural. GBS positive. Management of any complications: none I have reviewed the [facility] and made any clinically relevant updates. Dr Mendes aware of assessment and plan. agrees with admission. (7) Intrauterine growth restriction (IUGR) affecting care of mother: Charges/Coding Multi Select Codes Urinary/Genital Urinary/Genital CPT Codes: No Charge
[2025-05-14] MEDS: Lactated Ringers 1,000 ML 50 ML IV (13:05)
[2025-05-14] MEDS: Penicillin G Pot 5,000,000 UNITS in 0.9% Normal Saline (100mL MB+) 100 ML 150 UNITS IV (13:08)
[2025-05-14] MEDS: Oxytocin 15 Units/NS 250ml 15 UNITS/250 ML IV.SOLN 2 UNITS IV (13:12)
[2025-05-14 13:46] LABS: Hematocrit 39.7 % (37-47); Hemoglobin 13.0 g/dL (12.0-15.0); Immature Granulocytes Count 0.050 X10^3/uL (0.0-0.0); Mean Corp Hgb Conc 32.7 g/dL (32-36); Mean Corpuscular Volume 95.0 fL (81-99); Mean Platelet Vol. 9.9 fl (6.2-12.0); NRBC Flagged by Analyzer 0 % (0-5); Platelet Count 238 K/mm3 (150-450); RBC Distribution Width CV 13.3 % (11.6-14.6); RBC Distribution Width SD 46.3 fl (35.1-43.9); Red Blood Count 4.18 M/mm3 (4.2-5.4); White Blood Count 9.9 K/mm3 (4.4-11.0)
[2025-05-14 14:31] LABS: Syphilis Antibodies Nonreactive (Nonreactive)
[2025-05-14] MEDS: Lactated Ringers 1,000 ML 999 ML IV (15:22)
--- NOTE | 2025-05-14 15:37 | PN_ITS ---
Progress Note Coping well with contractions current tracing: FHT: 140 Moderate variability reactive no decelerations category I tracing [place]: 3-4 minute Contractions Membranes:ruptured for clear fluid Pitocin 6mu SVE:5.5/80/-2 A/P: Continue with position changes Titrate pitocin per protocol Epidural per anesthesia PCN for GBS prophylaxis Anticipate Dr Mendes aware of above assessment and agrees with plan of care Assessment & Plan Assessment/Plan (1) Intrauterine growth restriction (IUGR) affecting care of mother: (2) Encounter for induction of labor: (3) Positive GBS test: (4) AMA (advanced maternal age) multigravida 35+: QUALIFIERS: Trimester: second trimester Qualified Code(s): O09.522 - Supervision of elderly multigravida, second trimester (5) Supervision of normal : QUALIFIERS: Normal : other normal Trimester: second trimester Qualified Code(s): Z34.82 - Encounter for supervision of other normal , second trimester (6) History of atony of uterus: (7) : QUALIFIERS: Weeks of gestation: 38 weeks Qualified Code(s): Z3A.38 - 38 weeks gestation of Multi Select Codes Urinary/Genital Urinary/Genital CPT Codes: No Charge
[2025-05-14] MEDS: LACTATED RINGERS 500 ML 999 ML IV (16:24)
[2025-05-14] MEDS: fentaNYL-bupivacaine (epidural) 100 ML BAG EPIDURAL (16:26)
--- NOTE | 2025-05-14 17:01 | OB.VAGDELI_ITS ---
Assessment & Plan (1) Vaginal delivery: COMMENT: KW IOL IUGR 4% girl Lala (2) Intrauterine growth restriction (IUGR) affecting care of mother: (3) Encounter for induction of labor: (4) Positive GBS test: COMMENT: treat in labor (5) AMA (advanced maternal age) multigravida 35+: QUALIFIERS: Trimester: second trimester Qualified Code(s): O09.522 - Supervision of elderly multigravida, second trimester COMMENT: growth at 36 weeks. deliver 39 weeks (6) Supervision of normal : QUALIFIERS: Normal : other normal Trimester: second trimester Qualified Code(s): Z34.82 - Encounter for supervision of other normal , second trimester COMMENT: PRR, , BRITANY 05/24/25 girl JAVAN Gonzalez, Richi (7) History of atony of uterus: COMMENT: with hemorrhage (8) : QUALIFIERS: Weeks of gestation: 38 weeks Qualified Code(s): Z3A.38 - 38 weeks gestation of COMMENT: NIPt low risk, previous Carrier Neg. Maternal Data Information BRITANY Calculator Estimated Delivery Date Method Current WG Current Estimate 05/24/25 LMP (Certain) 38w 4d Other Estimates 05/25/25 Ultrasound #1 38w 3d Final BRITANY: 05/24/25 Final BRITANY Source: US >20 weeks Gestational age: 38.4 Vaginal Delivery Maternal Presentation Maternal Presentation: Medically Indicated Induction Maternal Presentation: Presented to unit for induction of labor for severe IUGR Type of Induction: Pitocin Medical Reason for Induction: Compromise: list: (severe IUGR) Vaginal Delivery Information Procedure Performed: Spontaneous Vaginal Delivery Surgeon/Practitioner: Nneka Salcido Date of Procedure: 05/14/25 Pre-Procedure Diagnosis: see problem list Post-Procedure Diagnosis: same Type of anesthesia: Epidural Estimated Blood Loss: 300 Time of Delivery: 16:45 Findings Description of procedure: Progressed well to 10cm dilated and made steady progress with effective maternal pushing. Delivered the head in SULEIMAN presentation. The head was delivered atraumatically and no nuchal cord was identified. The anterior and posterior shoulders delivered without complication followed by the rest of the infant and the was placed on the maternal abdomen. Delayed cord clamping was employed for approximately 3 minutes. Cord was clamped and cut and gentle traction was applied to the cord and the placenta delivered spontaneously. Immediately following, it was noted to be intact with a 3 vessel cord. Uterine bleeding stable. The perineum and vagina were inspected and noted to have no laceration. EBL was 300cc. Bladder drained for 300cc. Patient and infant tolerated delivery well. Apgars 9/9. Dr Bernal notified of vaginal delivery and orders reviewed. Physician agrees with current plan of care. 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
--- NOTE | 2025-05-14 17:05 | DCINST_ITS ---
Discharge Instructions DC O2, CPAP, BIPAP needs Home O2 Discharge instructions: No Dressing / Incision Discharge Activity: Return to Normal Activity May resume sexual activity in: 6-8 weeks Dressing / Incision Call your doctor if you observe: Fever of 101 or Higher, Coldness, Increased Pain, Numbness or Tingling, Change in Color, Inability to urinate, Inability to have a bowel movement, Using more than 1 pad per hour, Shortness of breath, Dizziness, Fainting spells, Swelling in the ankles, Chest pain, Increased palpitations (irregular heartbeat), Calf discomfort and Uncontrolled pain Follow Up Care Please Follow Up With: Nneka Salcido CNM When: Please call the office to schedule your follow up appointment in 6 weeks. If you had high blood pressure please call to schedule an appointment in 2 weeks. Test Results: Test results from this visit will be discussed in further detail at your follow- up appointment, if applicable. Discharge Plan Admission Admit Date/Time: 05/14/25 12:07 Attending Provider: Nneka Salcido Primary Care Provider: Care Physician,Marsha Primary Discharge Orders/Prescriptions Prescriptions: No Action PNV-DHA 27 mg iron-1 mg -300 mg capsule 1 cap PO DAILY Referrals / Follow Up: Care Physician,No Primary [Primary Care Provider, Medical]
[2025-05-14] MEDS: Oxytocin 15 Units/NS 250ml 15 UNITS/250 ML IV.SOLN 83 UNITS IV (17:24)
[2025-05-15] VITALS: BP 98/67; PULSE 75; RESP 16; TEMP 36.4; O2SAT 99
[2025-05-15 03:54] VITALS: BP 90/55; PULSE 88; RESP 17; TEMP 36.7; O2SAT 98
[2025-05-15 08:00] VITALS: BP 112/79; PULSE 78; RESP 16; TEMP 36.4; O2SAT 98
--- NOTE | 2025-05-15 08:04 | PN.OBGYN_ITS ---
Subjective Subjective Patient doing well without complaints. Tolerating PO. Ambulating and voiding without difficulty. Feeding well. Denies chest pain, shortness of breath, calf pain/swelling, fevers, chills, lightheadedness. Objective Data Objective Data Vital Signs: Vital Signs Temp Pulse Resp BP Pulse Ox O2 Del Method 98.1 F 88 17 90/55 L 98 Room Air 05/15/25 03:54 05/15/25 03:54 05/15/25 03:54 05/15/25 03:54 05/15/25 03:54 05/15/25 03:54 Oxygen Delivery Method Room Air Weight: 157 lb 3.033 oz Body Mass Index (BMI) 26.2 Intake & Output: Intake and Output for Last 24 Hours 05/13/25 05/14/25 05/15/25 23:59 23:59 23:59 Intake Total 2048.47 / 2048.47 Output Total 1270 / 1270 Balance 778.47 / 778.47 Lab / Micro Data 05/14/25 13:05 Labs: Laboratory Results - last 24 hr 05/14/25 13:05: WBC 9.9, RBC 4.18 L, Hgb 13.0, Hct 39.7, MCV 95.0, MCH 31.1, MCHC 32.7, RDW Std Deviation 46.3 H, RDW Coeff of Loi 13.3, Plt Count 238, MPV 9.9, Immature Gran % (Auto) 0.500, Neut % (Auto) 79.2 H, Lymph % (Auto) 15.0 L, Tucker % (Auto) 3.7, Eos % (Auto) 1.2, Baso % (Auto) 0.4, Absolute Neuts (auto) 7.8 H, Absolute Lymphs (auto) 1.48, Nucleated RBC % 0, Syphilis Total Ab Nonreactive, Blood Type O POSITIVE, Antibody Screen NEGATIVE Radiography Diagnostic Testing: Radiology Impression Obstetrics Ultrasound 05/14/25 10:25 IMPRESSION: Intrauterine growth retardation. The biparietal diameter as well as the abdominal circumference and femur length are below the 5th percentile. Reading Location: [id number] Physical Exam Const alert and oriented x3 HEENT normocephalic Eyes PERRL Neck full ROM Resp normal respiratory effort GI soft to palpation GI Narrative: FF below U Assessment & Plan (1) Vaginal delivery: COMMENT: KW IOL IUGR 4% girl Lala PLAN: Plan s/p PPD # 1 1. routine post delivery care 2. breast feeding- support given 3. rh positive 4. rubella immune
[2025-05-15 13:07] VITALS: BP 100/65; PULSE 78; RESP 16; TEMP 36.4; O2SAT 97
[2025-05-15 17:20] VITALS: BP 110/69; PULSE 78; RESP 16; TEMP 36.4; O2SAT 97
[2025-05-15 19:35] VITALS: BP 99/57; PULSE 71; RESP 15; TEMP 36.4; O2SAT 98
[2025-05-16 02:08] VITALS: BP 99/68; PULSE 86; RESP 18; TEMP 36.3; O2SAT 96
--- NOTE | 2025-05-16 06:59 | PCM.DC.SUM ---
Providers Date of Admission: 05/14/25 Primary Care Physician: No Primary Care Phys Reason For Visit: VAGINAL DELIVERY Diagnosis Discharge Diagnosis (1) Vaginal delivery: Status: Acute Code(s): O80 - Encounter for full-term uncomplicated delivery Medications at Discharge Home Medications multivitamin no.47-iron fum 27 mg-folate no.1 1 mg-dha 300 mg capsule (PNV-DHA) 1 cap PO DAILY Check with primary doctor 03/30/21 docusate sodium 100 mg capsule (Col-Rite) 100 mg PO BID #60 caps 05/16/25 Hospital Course Operations None Procedures - (vaginal delivery ) Summary of Care Provided Minutes Spent on Discharge: 15 Hospital Course: The patient was admitted to L&D for IOL for IUGR suspected on ultrasound on 05/14/25. She delivered a viable fetus without complications that same day. On day #1 she was recovering well without complications and required little assistance. On day #2 she was ready for discharge. Physical Exam Const alert, oriented x3 and no apparent distress General Appearance: cooperative and comfortable Resp normal respiratory effort Cardio regular rate GI normal to inspection, nondistended, normoactive bowel sounds GI Narrative: uterus is firm below umbilicus Palpation: soft Back/Spine no CVA tenderness and thoraco-lumbar ROM normal Extremity normal to inspection, no clubbing, cyanosis or edema, no calf tenderness and no pedal edema Psych mental status grossly normal, thought process normal, cooperative, affect normal, speech normal, activity/motor behavior normal, denies homicidal ideation and denies suicidal ideation Weight / BMI Weight Weight: 157 lb 3.033 oz Body Mass Index (BMI) 26.2 PRE- weight 130 lb PRE- Body Mass Index 21.7 (BMI) ABG / Lab / Microbiology Data 05/14/25 13:05 D/C Instructions May resume sexual activity in: 6-8 weeks Call your doctor if you observe: Fever of 101 or Higher, Coldness, Increased Pain, Numbness or Tingling, Change in Color, Inability to urinate, Inability to have a bowel movement, Using more than 1 pad per hour, Shortness of breath, Dizziness, Fainting spells, Swelling in the ankles, Chest pain, Increased palpitations (irregular heartbeat), Calf discomfort and Uncontrolled pain DC O2, CPAP, BIPAP Needs Home O2 Discharge instructions: No Please Follow Up With: Nneka Salcido CNM When: Please call the office to schedule your follow up appointment in 6 weeks. If you had high blood pressure please call to schedule an appointment in 2 weeks. Meaningful Use Info Meaningful Use Meaningful Use Diagnoses (Choose all that apply): None applicable VTE Anticoag overlap given w/in hospital stay or rx'd at dc?: No Reason overlap not ordered, prescribed, or given for 5 days: Treatment Not Indicated Discharge Plan Admission Admit Date/Time: 05/14/25 12:07 Attending Provider: Nneka Salcido Primary Care Provider: Care Physician,No Primary Discharge Orders/Prescriptions Prescriptions: New docusate sodium [Col-Rite] 100 mg capsule 100 mg PO BID Qty: 60 0RF Continued PNV-DHA 27 mg iron-1 mg -300 mg capsule 1 cap PO DAILY Referrals / Follow Up: Care Physician,No Primary [Primary Care Provider, Medical] Disposition Disposition (needs filled in before D/C Order can be placed): Home, Self Care
[2025-05-16 09:00] VITALS: BP 108/65; PULSE 91; RESP 18; TEMP 36.6; O2SAT 98
== END 2025-05-16 10:15 | disposition home or self-care (01) | DRG 807 ==
LOC: WPOUT 12:17 → WP 12:17
PROVIDERS: Admitting Provider Advanced Practice Midwife; Referring Provider Advanced Practice Midwife; Visit Provider Advanced Practice Midwife
DX: O36.5930 Maternal care for other known or suspected poor fetal growth, third trimester, not applicable or unspecified (principal); Z37.0 Single live birth; B95.1 Streptococcus, group B, as the cause of diseases classified elsewhere; O99.820 Streptococcus B carrier state complicating pregnancy; Z3A.38 38 weeks gestation of pregnancy; Z87.59 Personal history of other complications of pregnancy, childbirth and the puerperium
CPT/HCPCS: 59025; 59050; 76815; 76816; 85025; 86780; 86850; 86900; 86901; 99221; G0378; J2405